=== PATIENT | male | born 1960 | race Caucasian/White ===

== ENCOUNTER 2022-11-21 09:40 | Outpatient (OUT) | payer BC, SELFPAY ==
[2022-11-22 04:07] LABS: Testosterone 614 ng/dL (264-916)
== END 2022-11-21 09:41 | disposition home or self-care (01) ==
PROVIDERS: PCP Internal Medicine; Visit Provider Internal Medicine
DX: R53.83 Other fatigue (principal)
CPT/HCPCS: 36415; 84403; 84443

== ENCOUNTER 2023-08-07 06:54 | Outpatient (OUT) | payer BC, SELFPAY ==
[2023-08-07 07:11] LABS: Basophils Absolute Auto 0.1 10^3/uL (0.0-0.1); Basophils Percent Auto 1.3 % (0.2-2.0); Eosinophils Absolute Auto 0.4 10^3/uL (0.0-0.7); Eosinophils Percent Auto 8.1 % (0.9-7.0); Hematocrit 42.8 % (42.0-54.0); Hemoglobin 14.4 g/dL (14.0-18.0); Immature Granulocytes Abs Auto 0.01 10^3/uL (0.00-0.03); Immature Granulocytes Pct Auto 0.2 % (0.0-0.5); Lymphocytes Absolute Auto 1.6 10^3/uL (1.2-3.8); Lymphocytes Percent Auto 33.2 % (20.5-60.0); Mean Corpuscular HGB Conc 33.6 g/dL (29.9-35.2); Mean Corpuscular Hemoglobin 32.6 pg (25.9-34.0); Mean Corpuscular Volume 96.8 fL (80.0-94.0); Mean Platelet Volume 10.4 fL (9.5-13.5); Monocytes Absolute Auto 0.5 10^3/uL (0.3-0.8); Monocytes Percent Auto 10.7 % (1.7-12.0); Neutrophils Absolute Auto 2.2 10^3/uL (1.4-6.5); Neutrophils Percent Auto 46.5 % (43.0-75.0); Platelet Count 194 10^3/uL (150-450); Red Blood Count 4.42 10^6/uL (4.70-6.10); Red Cell Distribution Width 11.2 % (11.0-15.0); White Blood Count 4.7 10^3/uL (4.0-11.0)
[2023-08-07 07:48] LABS: Alanine Aminotransferase 31 U/L (16-63); Albumin Globulin Ratio 1.1; Albumin Level 3.5 g/dL (3.4-5.0); Alkaline Phosphatase 61 U/L (46-116); Anion Gap 13.6; Aspartate Amino Transferase 24 U/L (15-37); BUN Creatinine Ratio 13.5; Bilirubin Total 0.5 mg/dL (0.2-1.0); Calcium 8.7 mg/dL (8.5-10.1); Carbon Dioxide 26.8 mmol/L (21.0-32.0); Chloride 103 mmol/L (98-107); Chol HDL Ratio 3.1; Cholesterol 179 mg/dL (<=200); Estimated GFR (African America >60 (>=60); Estimated GFR (Non-African Ame >60 (>=60); Globulin 3.3 g/dL; Glucose 105 mg/dL (74-106); HDL Cholesterol 58 mg/dL (40-60); LDL Cholesterol Calculated 112.4 mg/dL; Potassium 4.4 mmol/L (3.5-5.1); Sodium 139 mmol/L (136-145); Total Protein 6.8 g/dL (6.4-8.2); Triglycerides 43 mg/dL (<=150); VLDL CHOLESTEROL 8.6 mg/dL
[2023-08-07 07:58] LABS: Prostate Specific Antigen Scrn 0.58 ng/mL (<=4.00)
== END 2023-08-07 06:55 | disposition home or self-care (01) ==
LOC: LAB 06:54
PROVIDERS: PCP Internal Medicine; Visit Provider Internal Medicine
DX: Q23.1 Congenital insufficiency of aortic valve (principal); I10 Essential (primary) hypertension; N40.1 Benign prostatic hyperplasia with lower urinary tract symptoms; Z12.5 Encounter for screening for malignant neoplasm of prostate
CPT/HCPCS: 80053; 80061; 85025; G0103

== ENCOUNTER 2024-01-15 12:56 | Outpatient (OUT) | payer BC, SELFPAY ==
--- NOTE | 2024-01-15 | XR_ITS ---
[address] [address] Patient Name: REJI PINON MRN: [id number] date: 1960 Sex: M Assigned Patient Location: Current Patient Location: Accession/Order Number: [id number] Exam Date: 01/15/2024 12:57 Report Date: 01/16/2024 08:16 At the request of: SOLO HERNANDEZ Procedure: XR foot LT min 3V PROCEDURE: XR foot LT min 3V COMPARISON: None. HISTORY: LEFT FOOT PAIN FINDINGS: BONES:No acute fracture or dislocation. Moderate plantar enthesopathic spurring of the calcaneus. Mild degenerative changes of the midfoot with marginal osteophyte formation SOFT TISSUES:Negative. No visible soft tissue swelling. EFFUSION:None visible. OTHER: Negative. XR/XR foot LT min 3V IMPRESSION: Moderate plantar enthesopathic spurring Electronically authenticated by: MARGARITA VIERA Date: 01/16/2024 08:16
--- OUTSIDE RECORDS SUMMARY | 2024-01-15 13:07 | XMS_ITS | CCD ---
Author Organization [facility] CliniSyde Care Team Providers Care Instrument Engineer Name Role Phone GO CHAVES Attending Unavailable CHAVES, GO Admitting Unavailable PROVIDER, UNKNOWN Admitting Unavailable PROVIDER, UNKNOWN Attending Unavailable PROVIDER, UNKNOWN Admitting Unavailable PROVIDER, UNKNOWN Attending Unavailable PROVIDER, UNKNOWN Admitting Unavailable PROVIDER, UNKNOWN Attending Unavailable STEVIE MADSEN Primary Care Physician [phone] Cale, Stevie Unavailable CALE, DR HARDY Admitting Unavailable CALE, DR HARDY Attending Unavailable CALE, DR HARDY Primary Care Unavailable CALE, DR HARDY Consulting Unavailable ZIEBER, DR OCTAVIO Hill Consulting Unavailable LOYD ., DR GERMAIN Admitting Unavailable LOYD ., DR GERMAIN Attending Unavailable BALL, DR HARDY Primary Care Unavailable LOYD ., DR GERMAIN Consulting Unavailable LOYD ., DR GERMAIN Admitting Unavailable LOYD ., DR GERMAIN Attending Unavailable BALL, DR HARDY Primary Care Unavailable LOYD ., DR GERMAIN Consulting Unavailable AGUBOSIM, RON Consulting Unavailable ROSYKOSHIVA UGALDE Consulting Unavailable NILL ., DR BOUDREAUX Admitting Unavailable NILL ., DR BOUDREAUX Attending Unavailable CALE, DR HARDY Primary Care Unavailable NILL ., DR BOUDREAUX Consulting Unavailable SHIVA RAMIREZ Consulting Unavailable MCCORNACKOCTAVIO Consulting Unavailable CALE, DR HARDY Admitting Unavailable CALE, DR HARDY Attending Unavailable BALL, DR HARDY Primary Care Unavailable CALE, DR HARDY Consulting Unavailable GURDEEPJenna HESS Attending Unavailable Allergies Allergy Classification Reported Allergen(s) Allergy Type Date of Onset Reaction(s) Facility (1 source) No Known Medication Allergies; Translations: [No Known Medication Allergies] Propensity to adverse reactions (disorder) [facility] Repository Medications Current Medications Medication Drug Class(es) Dates Sig (Normalized) Sig (Original) amLODIPine 5 mg oral tablet (4 sources) Dihydropyridine Calcium Channel Moe Start: 08-12-2023 take 5 mg by mouth once daily Amlodipine Active 5 MG PO Daily August 12, 2023 12:00am Start: 01-23-2023 take 1 tablet by ben th every twenty-four hours amLODIPine Besylate 5 MG 1 tablet Orally Once a day for 30 days Jan, Active carvedilol 25 mg oral tablet (6 sources) alpha-Adrenergic Moe, beta-Adrenergic Moe Start: 08-12-2023 take 25 mg by mouth twice daily Carvedilol Active 25 MG PO Twice daily August 12, 2023 12:00am Start: 12-10-2022 take 1 tablet by ben th every twelve hours Carvedilol 12.5 MG 1 tablet with food Orally Twice a day for 30 days Nov, Active Start: 12-10-2022 take 1 tablet by ben th every twelve hours Carvedilol 6.25 MG 1 tablet with food Orally Twice a day for 30 days Nov, Active Carvedilol 25 MG TAKE 1 TABLET BY MOUTH TWICE A DAY WITH FOOD FOR 30 DAYS Orally Twice a day Active escitalopram 10 mg oral tablet (2 sources) Serotonin Reuptake Inhibitor Start: 08-12-2023 take 10 mg by mouth once daily Escitalopram Oxalate Active 10 MG PO Daily August 12, 2023 12:00am Start: 03-29-2023 take 1 tablet by ben th once daily at bedtime Escitalopram Oxalate 10 MG 1 tablet Orally Once a day before bedtime for 30 days Mar, Active Ibuprofen (2 sources) Nonsteroidal Anti-inflammatory Drug Start: 09-04-2021 ibuprofen PRN as needed for pain, Refills(s) 0 Start Date: 09/04/21 Status: Ordered tiZANidine 4 mg oral tablet (13 sources) Central alpha-2 Adrenergic Agonist Start: 08-12-2023 take 4 mg by mouth three times daily Tizanidine Active 4 MG PO Three times daily August 12, 2023 12:00am Start: 07-31-2021 take 1 tablet by ben th at bedtime tiZANidine 4 mg Tab 4 mg = 1 tab(s), Oral, Bedtime, Refills(s) 0 Start Date: 07/31/21 Status: Ordered Problems Active Problems Problem Classification Problem Date Documented Da te Episodic/Chronic Acute cerebrovascular disease (5 sources) Subarachnoid hemorrhage; Translations: [Nontraumatic subarachnoid hemorrhage, unspecified] Onset: 02-13-2021 Chronic Cardiac and circulatory congenital anomalies (12 sources) Bicuspid aortic valve; Translations: [Congenital insufficiency of aortic valve] Chronic Essential hypertension (12 sources) Essential (primary) hypertension; Translations: [Essential hypertension] Onset: 09-20-2021 Chronic Hyperplasia of prostate (12 sources) Nocturia due to benign prostatic hypertrophy; Translations: [Benign prostatic hyperplasia with lower urinary tract symptoms] Chronic Intracranial injury (5 sources) History of traumatic brain injury; Translations: [Personal history of traumatic brain injury] Episodic Malaise and fatigue (1 source) Other fatigue Episodic Mood disorders (4 sources) Recurrent major depressive episodes, mild ; Translations: [Major depressive disorder, recurrent, mild] Chronic Other circulatory disease (8 sources) Elevated blood-pressure reading without diagnosis of hypertension; Translations: [Elevated blood-pressure reading, without diagnosis of hypertension] 07-31-2021 Episodic Other circulatory disease (3 sources) History of subarachnoid hemorrhage 07-31-2021 Episodic Other circulatory disease (1 source) Other specified symptoms and signs involving the circulatory and respiratory systems Episodic Other circulatory disease (1 source) Elevated blood-pressure reading, without diagnosis of hypertension Episodic Other female genital disorders (3 sources) Disorder of reproductive system 07-31-2021 Episodic Other injuries and conditions due to external causes (3 sources) History of closed head injury 07-31-2021 Episodic Other lower respiratory disease (1 source) Other forms of dyspnea Episodic Other lower respiratory disease (1 source) Shortness of breath Episodic Other male genital disorders (2 sources) Hydrocele of testis; Translations: [Hydrocele, unspecified] Onset: 09-04-2021 Episodic Other male genital disorders (2 sources) Cyst of testis 09-04-2021 Episodic Other male genital disorders (14 sources) Spermatocele; Translations: [Spermatocele of epididymis, unspecified] Onset: 10-20-2021 Episodic Other male genital disorders (16 sources) Hydrocele; Translations: [Hydrocele, unspecified] Episodic Other male genital disorders (11 sources) Benign cyst of testis; Translations: [Testicular cyst] Onset: 09-20-2021 Episodic Other male genital disorders (6 sources) Spermatocele of epididymis, unspecified; Translations: [SPERMATOCELE EPIDIDYMIS UNSPECIFIED] Onset: 09-14-2021 Episodic Other male genital disorders (8 sources) Hydrocele, unspecified; Translations: [Hydrocele] Onset: 09-20-2021 Episodic Other male genital disorders (4 sources) Benign cyst of testes; Translations: [Benign cyst of testis] Episodic Other non-epithelial cancer of skin (3 sources) Malignant neoplasm of skin 07-22-2013 Episodic Other non-traumatic joint disorders (12 sources) Shoulder joint pain; Translations: [Pain in left shoulder] Episodic Other non-traumatic joint disorders (2 sources) Pain in left shoulder; Translations: [Pain in left shoulder] Episodic Other nutritional; endocrine; and metabolic disorders (3 sources) Body mass index 25-29 - overweight 08-18-2021 Episodic Other nutritional; endocrine; and metabolic disorders (5 sources) Overweight; Translations: [Overweight] Episodic Other nutritional; endocrine; and metabolic disorders (2 sources) Overweight; Translations: [Overweight] Episodic Other screening for suspected conditions (not mental disorders or infectious disease) (7 sources) Encounter for screening for malignant neoplasm of prostate; Translations: [Encounter for screening for malignant neoplasm of colon] Onset: 09-20-2021 Episodic Residual codes; unclassified (2 sources) Chews tobacco 08-24-2021 Episodic Residual codes; unclassified (2 sources) Family history of cancer of colon 08-24-2021 Episodic Residual codes; unclassified (1 source) Family history of stroke Episodic Substance-related disorders (18 sources) Nicotine dependence; Translations: [Tobacco user] Onset: 09-26-2021 07-31-2021 Chronic Unclassified (3 sources) Chronic pain of left upper limb 07-31-2021 Unclassified (2 sources) Patient encounter status 08-24-2021 Past or Other Problems Problem Classification Problem Date Documented Da te Episodic/Chronic Genitourinary symptoms and ill-defined conditions (6 sources) Nocturia; Translations: [Nocturia] Onset: 09-04-2021 Episodic Other male genital disorders (5 sources) Disorder of male genital organ; Translations: [Other specified disorders of the male genital organs] Resolved: 06-16-2021 Episodic Residual codes; unclassified (2 sources) Family history of malignant neoplasm of digestive organs; Translations: [FAM HX MALIG NEOPLASM DIGESTIV ORGN] Onset: 09-26-2021 Episodic Unclassified (2 sources) Post COVID-19 condition, unspecified U09.9 Unclassified (1 source) Chronic cough R05.3 Unclassified (3 sources) Aneurysm of ascending aorta without rupture I71.21 Results Test Name Value Interpretation Reference Range Facility Basophils Auto (Bld) [#/Vol] on 08-07-2023 Basophils (Bld) [#/Vol] 0.1 10 3/uL 0.0-0.1 [facility] Basophils/100 WBC Auto (Bld) on 08-07-2023 Basophils/100 WBC (Bld) 1.3 % 0.2-2.0 [facility] Cholesterol in LDL Calc [Mas s/Vol]on 08-07-2023 Cholesterol in LDL [Mass/Vol] 112.4 mg/dL [facility] Comment on above: <100 mg/dl [id number] 0-129 mg/dl NEAR OR ABOVE [id number] mg/dl BORDERLINE [id number] mg/dl HIGH>190 mg/dl VERY HIGH Cholesterol in VLDL Calc [Ma ss/Vol]on 08-07-2023 Cholesterol in VLDL [Mass/Vol] 8.6 mg/dL [facility] Eosinophils/100 WBC Auto (Bl d)on 08-07-2023 Eosinophils/100 WBC (Bld) 8.1 % 0.9-7.0 [facility] Erythrocyte distribution wid th Auto (RBC) [Ratio]on 08-07-2023 Erythrocyte distribution width (RBC) [Ratio] 11.2 % 11.0-15.0 [facility] Estimated glomerular filtrat ion rate (GFR) non- Americanon 08-07-2023 GFR/1.73 sq M.predicted among non-blacks MDRD (S/P/Bld) [Vol rate/Area] mL/min/{1.73_m2} >=60 [facility] Globulin Calc (S) [Mass/Vol] on 08-07-2023 Globulin (S) [Mass/Vol] 3.3 g/dL [facility] Hematocrit Auto (Bld) [Volum e fraction]on 08-07-2023 Hematocrit (Bld) [Volume fraction] 42.8 % 42.0-54.0 [facility] Hemoglobin [Mass/volume] in Bloodon 08-07-2023 Hemoglobin (Bld) [Mass/Vol] 14.4 g/dL 14.0-18.0 [facility] Laboratory - Chemistry and C hemistry - challengeon 08-07-2023 Albumin [Mass/Vol] 3.5 g/dL 3.4-5.0 [facility] ALP [Catalytic activity/Vol] 61 U/L 46-116 [facility] ALT [Catalytic activity/Vol] 31 U/L 16-63 [facility] AST [Catalytic activity/Vol] 24 U/L 15-37 [facility] Bilirubin [Mass/Vol] 0.5 mg/dL 0.2-1.0 [facility] Calcium [Mass/Vol] 8.7 mg/dL 8.5-10.1 [facility] Chloride [Moles/Vol] 103 mmol/L 98-107 [facility] Cholesterol [Mass/Vol] 179 mg/dL <=200 [facility] Cholesterol in HDL [Mass/Vol] 58 mg/dL 40-60 [facility] Comment on above: > or =60 mg/dl - LOW CARDIOVASCULAR RISK<40 mg/dl - HIGH CARDIOVASCULAR RISK CO2 [Moles/Vol] 26.8 mmol/L 21.0-32.0 [facility] Creatinine [Mass/Vol] 0.96 mg/dL 0.70-1.30 [facility] GFR/1.73 sq M.predicted MDRD (S/P/Bld) [Vol rate/Area] mL/min/{1.73_m2} >=60 [facility] Glucose [Mass/Vol] 105 mg/dL 74-106 [facility] Potassium [Moles/Vol] 4.4 mmol/L 3.5-5.1 [facility] Protein [Mass/Vol] 6.8 g/dL 6.4-8.2 [facility] Sodium [Moles/Vol] 139 mmol/L 136-145 [facility] Triglyceride [Mass/Vol] 43 mg/dL <=150 [facility] Urea nitrogen [Mass/Vol] 13.0 mg/dL 7.0-18.0 [facility] Urea nitrogen/Creatinine [Mass ratio] 13.5 mg/mg [facility] Laboratory - Hematology and Cell countson 08-07-2023 Immature granulocytes/100 WBC (Bld) 0.2 % 0.0-0.5 [facility] Leukocytes [#/volume] correc karyna for nucleated erythrocytes in Blood by Automated counon 08-07-2023 WBC corrected for nucl RBC Auto (Bld) [#/Vol] 4.7 10 3/uL 4.0-11.0 [facility] Lymphocytes Auto (Bld) [#/Vo l]on 08-07-2023 Lymphocytes (Bld) [#/Vol] 1.6 10 3/uL 1.2-3.8 [facility] Lymphocytes/100 WBC Auto (Bl d)on 08-07-2023 Lymphocytes/100 WBC (Bld) 33.2 % 20.5-60.0 [facility] MCH Auto (RBC) [Entitic mass ]on 08-07-2023 MCH (RBC) [Entitic mass] 32.6 pg 25.9-34.0 [facility] MCHC Auto (RBC) [Mass/Vol]on 08-07-2023 MCHC (RBC) [Mass/Vol] 33.6 g/dL 29.9-35.2 [facility] MCV Auto (RBC) [Entitic vol] on 08-07-2023 MCV (RBC) [Entitic vol] 96.8 fL 80.0-94.0 [facility] Monocytes Auto (Bld) [#/Vol] on 08-07-2023 Monocytes (Bld) [#/Vol] 0.5 10 3/uL 0.3-0.8 [facility] Monocytes/100 WBC Auto (Bld) on 08-07-2023 Monocytes/100 WBC (Bld) 10.7 % 1.7-12.0 [facility] Neutrophils Auto (Bld) [#/Vo l]on 08-07-2023 Neutrophils (Bld) [#/Vol] 2.2 10 3/uL 1.4-6.5 [facility] Neutrophils/100 WBC Auto (Bl d)on 08-07-2023 Neutrophils/100 WBC (Bld) 46.5 % 43.0-75.0 [facility] No Panel Informationon 08-06 Eosinophils # (Auto) 0.4 10 3/uL 0.0-0.7 [facility] Immature Granulocyte # (Auto) 0.01 10 3/uL 0.00-0.03 [facility] Prostate Specific Antigen Screen 0.58 ng/mL <=4.00 [facility] Platelet mean volume Auto (B ld) [Entitic vol]on 08-07-2023 Platelet mean volume (Bld) [Entitic vol] 10.4 fL 9.5-13.5 [facility] Platelets Auto (Bld) [#/Vol] on 08-07-2023 Platelets (Bld) [#/Vol] 194 10 3/uL 150-450 [facility] RBC Auto (Bld) [#/Vol]on RBC (Bld) [#/Vol] 4.42 10 6/uL 4.70-6.10 [facility] Serum or plasma albumin/glob ulin mass ratioon 08-07-2023 Albumin/Globulin [Mass ratio] 1.1 {ratio} [facility] Serum or plasma anion gap de terminationon 08-07-2023 Anion gap [Moles/Vol] 13.6 mmol/L [facility] Serum or plasma total choles terol/high density lipoprotein (HDL) cholesterol mass shirley 08-07-2023 Cholesterol.total/Ch olesterol in HDL [Mass ratio] 3.1 {ratio} [facility] Comment on above: 3.3 - 4.4 LOW RISK4. 4 - 7.1 AVERAGE RISK7.1 - 11.0 MODERATE RISK>11.0 HIGH RISK Registrationon 04-01-2023 Registration [id number] #1.00TIFF Normal [facility] In office Testingon 03-28-20 23 In office Testing [id number]# 1.00TIFF Normal [facility] Registrationon 03-28-2023 Registration [id number] #1.00TIFF Normal [facility] US CAROTID ART BILon 023 US CAROTID ART DB EXAMINATION: US CAROTID ART DB HISTORY: Cardiovascular symptoms COMPARISON: No relevant comparison available. TECHNIQUE: Duplex Doppler ultrasound analysis of carotid and vertebral arteries. . Bilateral carotid arterial duplex examination was performed using B-mode, color flow and spectral analysis. Carotid stenosis is reported according to validated velocity parameters, similar to NASCET criteria. FINDINGS: RIGHT CAROTID ARTERY Minimal atherosclerotic plaque Subclavian: PSV: 123.6 cm/s cm/s EDV: 0.0 cm/s cm/s CCA: Prox: PSV: 82.3 cm/s cm/s EDV: 26.7 cm/s cm/s Mid: PSV: 82.3 cm/s cm/s EDV: 18.9 cm/s cm/s Distal: PSV: 72.1 cm/s cm/s EDV: 20.4 cm/s cm/s BULB: PSV: 59.8 cm/s cm/s EDV: 16.2 cm/s cm/s ICA: Prox: PSV: 51.4 cm/s cm/s EDV: 18.2 cm/s cm/s Mid: PSV: 64.7 cm/s cm/s EDV: 26.3 cm/s cm/s Distal: PSV: 72.1 cm/s cm/s EDV: 31.4 cm/s cm/s ECA: PSV: 84.9 cm/s cm/s EDV: 15.0 cm/s cm/s VERTEBRAL: PSV: 44.6 cm/s cm/s EDV: 15.4 cm/s cm/s ICA/CCA ratio: PSV: 0.9 EDV: 1.7 LEFT CAROTID ARTERY Minimal atherosclerotic plaque Subclavian: PSV: 85.9 cm/s cm/s EDV: 0.0 cm/s CCA: Prox: PSV: 96.5 cm/s cm/s EDV: 28.0 cm/s Mid: PSV: 83.6 cm/s cm/s EDV: 21.5 cm/s Distal: PSV: 74.5 cm/s cm/s EDV: 24.1 cm/s BULB: PSV: 67.1 cm/s cm/s EDV: 12.8 cm/s ICA: Prox: PSV: 55.2 cm/s cm/s EDV: 21.1 cm/s Mid: PSV: 65.5 cm/s cm/s EDV: 31.4 cm/s Distal: PSV: 63.3 cm/s cm/s EDV: 29.2 cm/s ECA: PSV: 71.3 cm/s cm/s EDV: 13.1 cm/s VERTEBRAL: PSV: 50.2 cm/s cm/s EDV: 23.2 cm/s ICA/CCA ratio: PSV: 0.8 EDV: 0.6 IMPRESSION: 0-49% flow stenosis bilateral internal carotid arteries Spectral Doppler US Thresholds (Reference: Jann EG, et al. Radiology 2000; 214:247-252) Stenosis (%) PSV (cm/sec) VICA/VCCA 0-49 <150 <2.5 50-69 150-225 2.5-4.0 >70 >225 >4.0 Electronically authenticated by: MARGARITA VIERA Date: 2022-08-25 08:20 Normal [facility] ECHOCARDIO M/2D COMPLETEon 0 08-24-2022 ECHOCARDIO M/2D COMPLETE Patient: REJI PINON Exam Date: 08/24/2022 : 1960 Gender:M Ordering : DR STEVIE MADSEN D.O. Admission #: [id number] Family : Order #: [id number] CLICK HERE TO VIEW EXAM ECHOCARDIOGRAM REPORT PROCEDURE: CARDIO PULMONARY ECHOCARDIO M/2D COMP INDICATIONS: Dyspnea on exertion, post Covid condition COMPARISON: None. DESCRIPTION: COMPLETE ECHOCARDIOGRAM Real-time transthoracic echocardiography with 2D, M-mode, spectral and color flow Doppler performed. QUALITY: Technical quality was good. LEFT VENTRICLE: Normal chamber size. Mild concentric left ventricular hypertrophy. Normal systolic function. LV EF: Normal left ventricular ejection fraction, (>55%). DIASTOLIC: Normal diastolic function. ATRIAL SEPTUM: Visually appears intact. LEFT ATRIUM: Normal chamber size. RIGHT ATRIUM: Normal chamber size. RIGHT VENTRICLE: Normal chamber size. Normal right ventricular systolic function. TRICUSPID VALVE: Normal mobility and thickness. No stenosis with trivial regurgitation. No evidence of pulmonary hypertension. RVSP 31 mmHg MITRAL VALVE: Normal mobility and thickness. No evidence of mitral valve stenosis. There is no mitral annular calcification. Trivial mitral regurgitation. AORTIC VALVE: No visible sclerosis. The aortic valve is bicuspid [Janiya type I, fusion of right and left cusps]. Trivial aortic regurgitation. No aortic stenosis. AORTIC ROOT: Moderately dilated ascending aorta (4.9 cm). The aortic root is mildly dilated, measuring 3.8 cm. Aortic arch is normal in size. PULMONIC VALVE: Normal thickness and mobility. No stenosis. Trivial regurgitation. PERICARDIUM: No evidence of pericardial effusion. IVC: Collapses with inspirations. PLEURA: CONCLUSION: 1. Normal ventricular function. LVEF is 55 to 60%. 2. Bicuspid aortic valve with no regurgitation and no stenosis. 3. Moderately dilated ascending aorta, measuring 4.9 cm. 4. Normal right-sided pressures. Adult Echocardiography Procedure Report Left Ventricle LVEDD (3.7 - 5.6 cm): 3.94 cm LVESD (2.2 - 4.0 cm): 3.16 cm LVIVS thickness (0.6 - 1.2 cm): 1.27 cm LVPW thickness (0.5 - 1.0 cm): 1.18 cm e': 0.11 m/s E - e': 5.58 LVOT Max Gradient: 4.09 mm[Hg], 3.97 mm[Hg] Peak Velocity (LVOT): 1.01 m/s, 1.00 m/s Mean Velocity (LVOT): 0.73 m/s, 0.69 m/s LVOT Diameter 2.03 cm Left Ventricular Ejection Fraction: 55-60 % Left Atrium LA Volume Index (2D A2C): 45.64 ml, 45.64 ml Left Atrium Systolic Dimension: 3.13 cm Mitral Valve MV E to A Ratio: 0.56 Mitral Valve A-Wave Peak Velocity: 1.09 m/s Mitral Valve E-Wave Peak Velocity: 0.61 m/s Right Ventricle RV Internal Diastolic Dimension: 4.50 cm Aorta AO Root Diam: 2.92 cm Ascending Ao Diam: 3.79 cm Aortic Valve AoV Area (Peak Ty): 1.78 cm2, 1.86 cm2, 1.70 cm2 AoV Area (VTI): 1.68 cm2, 1.79 cm2, 1.58 cm2 Peak Velocity(Antegrade Flow): 1.75 m/s, 1.89 m/s Peak Gradient(Antegrade Flow): 12.28 mm[Hg], 14.29 mm[Hg] Mean Velocity(Antegrade Flow): 1.15 m/s, 1.25 m/s Mean Gradient(Antegrade Flow): 6.20 mm[Hg], 7.25 mm[Hg] Velocity Time Integral: 28.96 cm, 31.94 cm Tricuspid Valve Peak Velocity (Regurgitant Flow): 2.66 m/s Peak Velocity: 0.59 m/s Pulmonic Valve Peak Velocity: 1.25 m/s, 1.03 m/s Peak Gradient: 6.28 mm[Hg], 4.21 mm[Hg] Right Atrium Right Atrium Systolic Pressure: 55.50 ml, 55.50 ml Dictated by: Sal Cruz M.D. on 08/24/2022 at 19:19 Approved by: Sal Cruz M.D. on 08/24/2022 at 19:28 Normal [facility] CBC AUTO DIFFon 08-03-2022 BASO # 0.1 103/ul Normal 0.0-0.1 [facility] Comment on above: Performed By: #### C BC #### [facility] [address] [place] [address] Dr. Christiano William Basophils/100 WBC (Bld) 1.2 % Normal 0.2-2.0 [facility] Comment on above: Performed By: #### C BC #### [facility] [address] [place] [address] Dr. Christiano William EO # 0.3 103/ul Normal 0.0-0.7 [facility] Comment on above: Performed By: #### C BC #### [facility] [address] [place] [address] Dr. Christiano William Eosinophils/100 WBC (Bld) 6.6 % Normal 0.9-7.0 [facility] Comment on above: Performed By: #### C BC #### [facility] [address] [place] [address] Dr. Christiano William Erythrocyte distribution width (RBC) [Ratio] 11.3 % Normal 11.0-15.0 [facility] Comment on above: Performed By: #### C BC #### [facility] [address] [place] [address] Dr. Christiano William Hematocrit (Bld) [Volume fraction] 44.2 % Normal 42.0-54.0 [facility] Comment on above: Performed By: #### C BC #### [facility] [address] [place] [address] Dr. Christiano William Hemoglobin (Bld) [Mass/Vol] 15.4 g/dL Normal 14.0-18.0 [facility] Comment on above: Performed By: #### C BC #### [facility] [address] [place] [address] Dr. Christiano William IG # 0.01 10e3/ul Normal 0.00-0.03 [facility] Comment on above: Performed By: #### C BC #### [facility] [address] [place] [address] Dr. Christiano William IG % 0.2 % Normal 0.0-0.5 [facility] Comment on above: Performed By: #### C BC #### [facility] [address] [place] [address] Dr. Christiano William LYMPH # 1.5 103/ul Normal 1.2-3.8 [facility] Comment on above: Performed By: #### C BC #### [facility] [address] [place] [address] Dr. Christiano William Lymphocytes/100 WBC (Bld) 35.4 % Normal 20.5-60.0 [facility] Comment on above: Performed By: #### C BC #### [facility] [address] [place] [address] Dr. Christiano William MANUAL DIFF REQ NO Normal [facility] Comment on above: Performed By: #### C BC #### [facility] [address] [place] [address] Dr. Christiano William MCH (RBC) [Entitic mass] 33.0 pg Normal 25.9-34.0 [facility] Comment on above: Performed By: #### C BC #### [facility] [address] [place] [address] Dr. Christiano William MCHC (RBC) [Mass/Vol] 34.8 g/dL Normal 29.9-35.2 [facility] Comment on above: Performed By: #### C BC #### [facility] [address] [address] [address] Christiano William MCV (RBC) [Entitic vol] 94.6 fL Critically high 80.0-94.0 [facility] Comment on above: Performed By: #### C BC #### [facility] [address] [address] [address] Christiano William MONO # 0.5 103/ul Normal 0.3-0.8 [facility] Comment on above: Performed By: #### C BC #### [facility] [address] [address] [address] Christiano William Monocytes/100 WBC (Bld) 11.2 % Normal 1.7-12.0 [facility] Comment on above: Performed By: #### C BC #### [facility] [address] [address] [address] Christiano William NEUT # 1.9 103/ul Normal 1.4-6.5 [facility] Comment on above: Performed By: #### C BC #### [facility] [address] [place] [address] Dr. Christiano William Neutrophils/100 WBC (Bld) 45.4 % Normal 43.0-75.0 [facility] Comment on above: Performed By: #### C BC #### [facility] [address] [address] [address] Christiano William Platelet mean volume (Bld) [Entitic vol] 10.0 fL Normal 9.5-13.5 [facility] Comment on above: Performed By: #### C BC #### [facility] [address] [address] [address] Christiano William PLT 222 103/ul Normal 150-450 [facility] Comment on above: Performed By: #### C BC #### [facility] [address] [address] [address] Christiano William RBC 4.67 106/ul Critically low 4.70-6.[address] [facility] Comment on above: Performed By: #### C BC #### [facility] [address] [address] [address] Christiano William WBC 4.1 103/ul Normal 4.0-11.0 [facility] Comment on above: Performed By: #### C BC #### [facility] [address] [place] [address] [address] Christiano William LIPID PROFILEon 08-03-2022 CHOL-HDL RATIO NORM SEE BELOW Normal [facility] Comment on above: Result Comment: 3.3 - 4.4 LOW RISK 4.4 - 7.1 AVERAGE RISK 7.1 - 11.0 MODERATE RISK >11.0 HIGH RISK Performed By: #### L IPID, CMP #### [facility] [address] [address] [address] Christiano William Cholesterol [Mass/Vol] 177 mg/dL Normal <=200 [facility] Comment on above: Performed By: #### L IPID, CMP #### [facility] [address] [place] [address] [address] Christiano William Cholesterol in HDL [Mass/Vol] 63 mg/dL Critically high 40-60 [facility] Comment on above: Performed By: #### L IPID, CMP #### [facility] [address] [address] [address] Christiano William Cholesterol in LDL [Mass/Vol] 106.8 mg/dL Normal [facility] Comment on above: Performed By: #### L IPID, CMP #### [facility] [address] [address] [address] Christiano William Cholesterol.total/Ch olesterol in HDL [Mass ratio] 2.8 {ratio} Normal [facility] Comment on above: Performed By: #### L IPID, CMP #### [facility] [address] [place] [address] Dr. Christiano William HDL NORMAL > or = 60 mg/dl - LO W CARDIOVASCULAR RISK <40 mg/dl - HIGH CARDIOVASCULAR RISK Normal [facility] Comment on above: Performed By: #### L IPID, CMP #### [facility] [address] [place] [address] Dr. Christiano William LDL CALC NORMAL SEE BELOW Normal [facility] Comment on above: Result Comment: <100 mg/dl OPTIMAL 100 - 129 mg/dl NEAR OR ABOVE OPTIMAL 130 - 159 mg/dl BORDERLINE HIGH 160 - 189 mg/dl HIGH >190 mg/dl VERY HIGH Performed By: #### L IPID, CMP #### [facility] [address] [place] [address] [address] Christiano William Triglyceride [Mass/Vol] 36 mg/dL Normal <=150 [facility] Comment on above: Performed By: #### L IPID, CMP #### [facility] [address] [place] [address] [address] Christiano William VLDL CALC 7.2 mg/dL Normal [facility] Comment on above: Performed By: #### L IPID, CMP #### [facility] [address] [place] [address] [address] Christiano William PROF 14(COMP METB)on 023 Albumin [Mass/Vol] 3.7 g/dL Normal 3.4-5.[address] [facility] Comment on above: Performed By: #### L IPID, CMP ####[facility] [address] [place] [address]Dr[place] William Albumin/Globulin [Mass ratio] 1.1 {ratio} Normal [facility] Comment on above: Performed By: #### L IPID, CMP ####[facility] [address] [place] [address]Dr[place] William ALP [Catalytic activity/Vol] 53 U/L Normal 46-116 [facility] Comment on above: Performed By: #### L IPID, CMP ####[facility] [address] [place] [id number] William ALT [Catalytic activity/Vol] 28 U/L Normal 16-63 [facility] Comment on above: Performed By: #### L IPID, CMP ####[facility] [address] [place] [id number] William Anion gap [Moles/Vol] 12.8 mmol/L Normal [facility] Comment on above: Performed By: #### L IPID, CMP ####[facility] [address] [place] [address]Dr. Christiano William AST [Catalytic activity/Vol] 22 U/L Normal 15-37 [facility] Comment on above: Performed By: #### L IPID, CMP ####[facility] [address] [place] [address]Dr. Christiano William Bilirubin [Mass/Vol] 0.5 mg/dL Normal 0.2-1.0 [facility] Comment on above: Performed By: #### L IPID, CMP ####[facility] [address] [place], [place] [address]Dr. Christiano William Calcium [Mass/Vol] 8.7 mg/dL Normal 8.5-10.[address] [facility] Comment on above: Performed By: #### L IPID, CMP ####[facility] [address] [place], [place] [address]Dr. Christiano William Chloride [Moles/Vol] 103 mmol/L Normal 98-107 [facility] Comment on above: Performed By: #### L IPID, CMP ####[facility] [address] [place], [place] [address]Dr. Christiano William CO2 [Moles/Vol] 26.7 mmol/L Normal 21.0-32.0 [facility] Comment on above: Performed By: #### L IPID, CMP ####[facility] I[address] [place], [place] [address]Dr. Christiano William Creatinine [Mass/Vol] 1.02 mg/dL Normal 0.70-1.30 [facility] Comment on above: Performed By: #### L IPID, CMP ####[facility] [address] [place], [place] [address]Dr. Christiano William EGFR-AF NIGERIEN >60 Normal >=60 [facility] Comment on above: Performed By: #### L IPID, CMP ####[facility] [address] [place], [place] [address]Dr. Christiano William EGFR-NON AF NIGERIEN >60 Normal >=60 [facility] Comment on above: Performed By: #### L IPID, CMP ####[facility] [address] [place] [address]Dr. Sravanthisheldon Stewart Globulin (S) [Mass/Vol] 3.5 g/dL Normal [facility] Comment on above: Performed By: #### L IPID, CMP ####[facility] [address] [place] [address]Dr. Christiano William Glucose [Mass/Vol] 110 mg/dL Critically high 74-106 [facility] Comment on above: Performed By: #### L IPID, CMP ####[facility] [address] [place], [place] [address]Dr. Christiano William Potassium [Moles/Vol] 4.5 mmol/L Normal 3.5-5.1 [facility] Comment on above: Performed By: #### L IPID, CMP ####[facility] [address] [place], [place] [address]Dr. Crhistiano William Protein [Mass/Vol] 7.2 g/dL Normal 6.4-8.2 The [facility] Comment on above: Performed By: #### L IPID, CMP ####[facility] [address] [place], [place] [address]Dr. Christiano William Sodium [Moles/Vol] 138 mmol/L Normal 136-145 The [facility] Comment on above: Performed By: #### L IPID, CMP ####[facility] [address] [place], [place] [address]Dr. Christiano William Urea nitrogen [Mass/Vol] 9.0 mg/dL Normal 7.0-18.0 [facility] Comment on above: Performed By: #### L IPID, CMP ####[facility] [address] [place], [place] [address]Dr. Christiano William Urea nitrogen/Creatinine [Mass ratio] 8.8 mg/mg Normal [facility] Comment on above: Performed By: #### L IPID, CMP ####[facility] [address] [place], [place] [address]Dr. Christiano William In office Testingon 07-05-19 23 In office Testing [id number] Normal [facility] CBC AUTO DIFFon 09-13-2021 BASO # 0.1 103/ul Normal 0.0-0.1 [facility] Comment on above: Performed By: #### C BC #### [facility] [address] [place] [address] Dr. Christiano William Basophils/100 WBC (Bld) 1.2 % Normal 0.2-2.0 [facility] Comment on above: Performed By: #### C BC #### [facility] [address] [place] [address] Dr. Christiano William EO # 0.1 103/ul Normal 0.0-0.7 [facility] Comment on above: Performed By: #### C BC #### [facility] [address] [place] [address] Dr. Christiano William Eosinophils/100 WBC (Bld) 2.6 % Normal 0.9-7.0 [facility] Comment on above: Performed By: #### C BC #### [facility] [address] [place] [address] Dr. Christiano William Erythrocyte distribution width (RBC) [Ratio] 12.3 % Normal 11.0-15.0 [facility] Comment on above: Performed By: #### C BC #### [facility] [address] [place] [address] Dr. Christiano William Hematocrit (Bld) [Volume fraction] 40.7 % Critically low 42.0-54.0 [facility] Comment on above: Performed By: #### C BC #### [facility] [address] [place] [address] Dr. Christiano William Hemoglobin (Bld) [Mass/Vol] 14.1 g/dL Normal 14.0-18.0 [facility] Comment on above: Performed By: #### C BC #### [facility] [address] [place] [address] Dr. Christiano William IG # 0.01 10e3/ul Normal 0.00-0.03 [facility] Comment on above: Performed By: #### C BC #### [facility] [address] [place] [address] Dr. Christiano William IG % 0.2 % Normal 0.0-0.5 [facility] Comment on above: Performed By: #### C BC #### [facility] [address] [place] [address] Dr. Christiano William LYMPH # 1.0 103/ul Critically low 1.2-3.8 [facility] Comment on above: Performed By: #### C BC #### [facility] [address] [place] [address] Dr. Christiano William Lymphocytes/100 WBC (Bld) 24.4 % Normal 20.5-60.0 [facility] Comment on above: Performed By: #### C BC #### [facility] [address] [place] [address] Dr. Christiano William MANUAL DIFF REQ NO Normal [facility] Comment on above: Performed By: #### C BC #### [facility] [address] [place] [address] Dr. Christiano William MCH (RBC) [Entitic mass] 33.7 pg Normal 25.9-34.0 [facility] Comment on above: Performed By: #### C BC #### [facility] [address] [place] [address] Dr. Christiano William MCHC (RBC) [Mass/Vol] 34.6 g/dL Normal 29.9-35.2 [facility] Comment on above: Performed By: #### C BC #### [facility] [address] [place] [address] Dr. Christiano William MCV (RBC) [Entitic vol] 97.4 fL Critically high 80.0-94.0 [facility] Comment on above: Performed By: #### C BC #### [facility] [address] [place] [address] Dr. Christiano William MONO # 0.5 103/ul Normal 0.3-0.8 [facility] Comment on above: Performed By: #### C BC #### [facility] [address] [place] [address] Dr. Christiano William Monocytes/100 WBC (Bld) 10.5 % Normal 1.7-12.0 [facility] Comment on above: Performed By: #### C BC #### [facility] [address] [place] [address] Dr. Christiano William NEUT # 2.6 103/ul Normal 1.4-6.5 [facility] Comment on above: Performed By: #### C BC #### [facility] [address] [place] [address] Dr. Christiano William Neutrophils/100 WBC (Bld) 61.1 % Normal 43.0-75.0 [facility] Comment on above: Performed By: #### C BC #### [facility] [address] [place] [address] Dr. Christiano William Platelet mean volume (Bld) [Entitic vol] 9.9 fL Normal 9.5-13.5 [facility] Comment on above: Performed By: #### C BC #### [facility] [address] [place] [address] Dr. Christiano William PLT 241 103/ul Normal 150-450 [facility] Comment on above: Performed By: #### C BC #### [facility] [address] [place] [address] Dr. Christiano William RBC 4.18 106/ul Critically low 4.70-6.10 [facility] Comment on above: Performed By: #### C BC #### [facility] [address] [place] [address] Dr. Christiano William WBC 4.3 103/ul Normal 4.0-11.0 [facility] Comment on above: Performed By: #### C BC #### [facility] [address] [place] [address] Dr. Christiano William PROF CHEM 8 (BAS METB)on Anion gap [Moles/Vol] 16.5 mmol/L Normal [facility] Comment on above: Performed By: #### B MP ####[facility] [address] [place] [address]Dr. Christiano William Calcium [Mass/Vol] 9.1 mg/dL Normal 8.5-10.1 The [facility] Comment on above: Performed By: #### B MP ####[facility] [address] [place] [address]Dr. Christiano William Chloride [Moles/Vol] 104 mmol/L Normal 98-107 [facility] Comment on above: Performed By: #### B MP ####[facility] [address] [place] [address]Dr. Christiano William CO2 [Moles/Vol] 22.3 mmol/L Normal 21.0-32.0 [facility] Comment on above: Performed By: #### B MP ####[facility] [address] [place], [place] [address]Dr. Christiano William Creatinine [Mass/Vol] 0.97 mg/dL Normal 0.70-1.30 [facility] Comment on above: Performed By: #### B MP ####[facility] [address] [place], [place] [address]Dr. Christiano William EGFR-AF NIGERIEN >60 Normal >=60 [facility] Comment on above: Performed By: #### B MP ####[facility] [address] [place] [address]Dr. Christiano William EGFR-NON AF NIGERIEN >60 Normal >=60 [facility] Comment on above: Performed By: #### B MP ####[facility] [address] [place], [place] [address]Dr. Christiano William Glucose [Mass/Vol] 100 mg/dL Normal 74-106 The [facility] Comment on above: Performed By: #### B MP ####[facility] [address] [place], [place] [address]Dr. Christiano William Potassium [Moles/Vol] 4.8 mmol/L Normal 3.5-5.1 [facility] Comment on above: Performed By: #### B MP ####[facility] [address] [place] [address]Dr[place]iana William Sodium [Moles/Vol] 138 mmol/L Normal 136-145 The [facility] Comment on above: Performed By: #### B MP ####[facility] [address] [place] [id number]. Christiano iWlliam Urea nitrogen [Mass/Vol] 8.0 mg/dL Normal 7.0-18.0 [facility] Comment on above: Performed By: #### B MP ####[facility] [address] [place] [address]Dr. Christiano William Urea nitrogen/Creatinine [Mass ratio] 8.2 mg/mg Normal [facility] Comment on above: Performed By: #### B MP ####[facility] [address] [place] [address]Dr[place]iana William PROTIMEon 09-13-2021 INR Coag (PPP) [Relative time] 0.97 {INR} Normal [facility] Comment on above: Performed By: #### P T, PTT #### [facility] [address] [place] [address] [address] Christiano William INR GUIDELINES SEE BELOW Normal [facility] Comment on above: Result Comment: DALLIN RED INR: 2.0 - 3.0 CONDITIONS NOT LISTED BELOW 2.5 - 3.5 FOR PROSTHETIC HEART VALVE REPLACEMENT 2.5 - 3.5 RECURRENT THROMBOSIS Performed By: #### P T, PTT #### [facility] [address] [place] [address] [address] Christiano William PT Coag (PPP) [Time] 10.5 s Normal 9.0-11.6 [facility] Comment on above: Performed By: #### P T, PTT #### [facility] [address] [place] [address] [address] Christiano William PTTon 09-13-2021 aPTT Coag (Bld) [Time] 29.0 s Normal 22.3-36.2 [facility] Comment on above: Performed By: #### P T, PTT #### [facility] [address] [place], [place] [address] Dr. Christiano William BASIC METABOLIC PANELon 11-0 Anion gap [Moles/Vol] 12 mmol/L Normal 10-20 [facility] Comment on above: Performed By: #### C H8, ETOH #### [facility] [address] [place] [address], Calcium [Mass/Vol] 8.0 mg/dL Low 8.4-10.4 [facility] Comment on above: Performed By: #### C H8, ETOH #### [facility] [address] [place] [address], Chloride [Moles/Vol] 105 mmol/L Normal 97-111 [facility] Comment on above: Performed By: #### C H8, ETOH #### [facility] [address] [place] [address], CO2 [Moles/Vol] 20 mmol/L Low 21-30 The [facility] Comment on above: Performed By: #### C H8, ETOH #### [facility] [address] [place] [address], Creatinine [Mass/Vol] 0.81 mg/dL Normal 0.80-1.30 [facility] Comment on above: Performed By: #### C H8, ETOH #### [facility] [address] [place] [address], ESTIMATED GFR (CKD-EPI) 97 mL/min/1.73sqm Normal >=60 [facility] Comment on above: Performed By: #### C H8, ETOH #### [facility] [address] [place] [address], Glucose [Mass/Vol] 86 mg/dL Normal 80-116 [facility] Comment on above: Performed By: #### C H8, ETOH #### [facility] [address] [place] [address], Potassium [Moles/Vol] 4.0 mmol/L Normal 3.3-5.3 [facility] Comment on above: Performed By: #### C H8, ETOH #### [facility] [address] [place], [place], Sodium [Moles/Vol] 133 mmol/L Low 135-148 [facility] Comment on above: Performed By: #### C H8, ETOH #### [facility] [address] [place], [place], Urea nitrogen [Mass/Vol] 9 mg/dL Normal 8-22 [facility] Comment on above: Performed By: #### C H8, ETOH #### [facility] [address] [place], [place], CBC WITH DIFFERENTIALon 11-0 -2020 Basophils (Bld) [#/Vol] 0.02 10*3/uL Normal 0.00-0.20 [facility] Comment on above: Performed By: #### C BCDSAT ####[facility] [id number] [place], [place], Basophils/100 WBC (Bld) 0.2 % Normal <=1.9 [facility] Comment on above: Performed By: #### C BCDSAT ####[facility] [id number] [place], [place], Eosinophils (Bld) [#/Vol] 0.05 10*3/uL Normal 0.00-0.70 [facility] Comment on above: Performed By: #### C BCDSAT ####[facility] [id number] [place], Eosinophils/100 WBC (Bld) 0.5 % Normal 0.1-4.0 [facility] Comment on above: Performed By: #### C BCDSAT ####[facility] [id number] [place], [place], Erythrocyte distribution width (RBC) [Ratio] 12.0 % Normal 11.5-14.5 [facility] Comment on above: Performed By: #### C BCDSAT ####S PATHOLOGY [id number] [place], [place], Hematocrit (Bld) [Volume fraction] 36.0 % Low 41.0-53.0 [facility] Comment on above: Performed By: #### C BCDSAT ####[facility] [id number] [place], Hemoglobin (Bld) [Mass/Vol] 12.3 g/dL Low 13.9-16.3 [facility] Comment on above: Performed By: #### C BCDSAT ####[facility] [id number] [place], [place], Lymphocytes (Bld) [#/Vol] 0.56 10*3/uL Low 1.00-4.80 [facility] Comment on above: Performed By: #### C BCDSAT ####[facility] [id number] [place] [address], Lymphocytes/100 WBC (Bld) 5.9 % Low 24.0-44.0 [facility] Comment on above: Performed By: #### C BCDSAT ####[facility] [id number] [place] [address], MCH (RBC) [Entitic mass] 33.4 pg Normal 26.0-34.0 [facility] Comment on above: Performed By: #### C BCDSAT ####[facility] [id number] [place] [address], MCHC (RBC) [Mass/Vol] 34.1 g/dL Normal 32.0-35.9 [facility] Comment on above: Performed By: #### C BCDSAT ####[facility] [id number] [place] [address], MCV (RBC) [Entitic vol] 98 fL Normal 80-100 [facility] Comment on above: Performed By: #### C BCDSAT ####[facility] PATH[facility] [id number] [place], MONOCYTE DISTRIBUTION WIDTH 16 Normal <=20 The [facility] Comment on above: Performed By: #### C BCDSAT ####[facility] [id number] [place] [address], Monocytes (Bld) [#/Vol] 0.48 10*3/uL Normal 0.20-1.00 The [facility] Comment on above: Performed By: #### C BCDSAT ####S PATHOLOGY [id number] [place], [place], Monocytes/100 WBC (Bld) 5.1 % Normal 2.0-11.0 [facility] Comment on above: Performed By: #### C BCDSAT ####S PATHOLOGY [id number] [place], Neutrophils (Bld) [#/Vol] 8.38 10*3/uL High 1.50-8.00 [facility] Comment on above: Performed By: #### C BCDSAT ####S PATHOLOGY [id number] [place], Neutrophils/100 WBC (Bld) 88.4 % High 31.0-76.0 [facility] Comment on above: Performed By: #### C BCDSAT ####[facility] PATH[facility] [id number] [place] [address], Platelet mean volume (Bld) [Entitic vol] 8.7 fL Normal 7.5-11.2 The [facility] Comment on above: Performed By: #### C BCDSAT ####S PATHOLOGY [id number] [place] [address], Platelets (Bld) [#/Vol] 182 10*3/uL Normal 150-400 The [facility] Comment on above: Performed By: #### C BCDSAT ####[facility] [id number] [place], RBC (Bld) [#/Vol] 3.67 10*6/uL Low 4.50-5.90 The [facility] Comment on above: Performed By: #### C BCDSAT ####[facility] [id number] [place], [place], WBC (Bld) [#/Vol] 9.5 10*3/uL Normal 4.5-11.5 [facility] Comment on above: Performed By: #### C BCDSAT ####[facility] [id number] [place], [id number] CT HEAD W/O CONTRASTon 02-20 CT HEAD W/O CONTRAST EXAMINATION: CT HEA D W/O CONTRAST CLINICAL HISTORY: Reason for Exam: Intracranial bleeding or injury on imaging ASSOCIATED DIAGNOSIS: Intracranial bleeding or injury on imaging TECHNOLOGISTS NOTE: COMPARISON: None TECHNIQUE: Thin axial imaging of the head was performed without intravenous contrast. FINDINGS: No mass or acute hemorrhage. No evidence of acute infarct. Mild generalized brain parenchymal volume loss with normal caliber ventricles. Scattered patchy foci of white matter hypoattenuation, most likely mild chronic microvascular angiopathy. The skull, paranasal sinuses and tympanomastoid cavities appear intact. Lobular mucosal thickening involving the left maxillary sinus, with mild scattered mucosal thickening in the right maxillary sinus and multiple ethmoid air cells. Small to moderate size contusion and hematoma in the left posterior scalp soft tissues, with small foci of subcutaneous gas. IMPRESSION: No acute intracranial abnormality. Left scalp hematoma. MACRO: None Normal [facility] Consultson 02-20-2021 Plant Taxonomist Authentication Interface Message Text NEUROSURGERY CRANIAL TRAUMA H AND P Patient Name: Reji Pinon Primary Care Physician: No primary care provider on file. CONSULTED BY: trauma CONSULTED FOR: tSAH CHIEF COMPLAINT: fall with CTH showing a tSAH HPI: 60y/oM with no known PMH who presents to ED as an OSH transfer for a fall down stairs. He states he was walking, slipped, and fell down stairs. Documented LOC and EtOH use. He was sedated prior to arrival with 70mg ketamine and 4mg Versed. OSH CTH shows trace SAH in L frontal cerebral sulci for which NSGY is consulted. He denies symptoms prior to fall such as GARCÍA, vision changes. He currently denies GARCÍA, vision changes, N/V, paresthesias. Additional injuries include: Large cephalohematoma with arterial bleed repaired in ED. Antiplatelet/Anticoag ulant: denies Coags: 1.10 INR, 12.2 PT, 23 aPTT, 182 PLTs Sodium: 133 Previous TBI:No PAST MEDICAL HISTORY: denies, I don't go to the doctor No past medical history on file. PAST SURGICAL HISTORY: denies No past surgical history on file. FAMILY HISTORY: no FMHx of bleeds, seizures No family history on file. SOCIAL HISTORY: drinks depending on the day...2, 4, 6 beers yeah let's say that . Denies drug use and smoking. Social History Occupational History * Not on file Tobacco Use * Smoking status: Not on file Substance and Sexual Activity * Alcohol use: Not on file * Drug use: Not on file * Sexual activity: Not on file MEDICATIONS: denies ALLERGIES: Not on File COMPLETE REVIEW OF SYSTEMS: ROS 03/26 systems negative other than above LABS: Basic Metabolic Panel None PHYSICAL EXAM: Awake, oriented x 3 PERRL, EOMI FS, TM BUE 08/17, no drift BLE 08/17 SILTx4 PHYSICAL EXAMINATION: Vital signs reviewed General appearance: appears younger than stated age Skin: warm, dry Head: Normocephalic. Dried blood throughout hair and shoulders. Large L laceration covered with clean gauze. Nose/Sinuses: Nares normal. Neck: trachea midline, C collar in place Lungs: chest symmetric, normal respiratory rate and rhythm Heart: slight tachycardia on tele monitor Abdomen: soft, nontender Extremities: Extremities normal. No deformities or edema Neuro: above RADIOLOGY: 02/19 CTH from OSH 2030: Trace SAH in the left frontal cerebral sulci. Prominent L parietal and occipital scalp hematoma and laceration. No acute fracture. Small amount of fluid in the R mastoid air cells. [place] CT SCORE: 1. Basal cisterns: 0: Normal 2. Midline shift: 0: Less than or equal to 5 mm 3. Epidural mass lesion: 0: Absent 4. Intraventricular blood or traumatic SAH: 1: Present Total Score: 2 (Calculated sum + 1) Six Month Mortality: Score 1: 0% Score 2: 7% Score 3: 16% Score 4: 26% Score 5: 53% Score 6: 61% 1. TBI sub-type: SAH 2. Laterality: Left 3. Location: Frontal 4. Pupillary response: Both reactive 5. Associated conditions: Hyponatremia 6. Loss of consciousness: Less than 30 minutes ASSESSMENT/PLAN: 60y/oM with no known PMH presents to ED as an OSH transfer for a fall down stairs. Documented LOC and EtOH use. He was sedated prior to arrival with 70mg ketamine and 4mg Versed. OSH CTH shows trace SAH in L frontal cerebral sulci for which NSGY is consulted. -Trauma primary, Q2 neuro checks through follow up scan -Repeat CT head 6 hours after initial imaging (~0230) -No need for Keppra -CIWA -SBP <170 per trauma guidelines -NPO -Ensure pre op labs complete (CBC, BMP, Type and Screen, PT/INT, PTT) -Hold all antiplatelets/anticoa gulants -Plts >100, INR <1.4 -Normonatremia, normothermia (<38.0 C) , euvolemia -SCDs only at this time for DVT prophylaxis. Hold H at this time -No acute neurosurgical intervention. Will continue to follow Patient was seen and examined within 30 minutes of consultation and will be discussed with staff shortly. Please call anytime with questions or concerns. Mala Duncan PA-C Neurosurgery Pager [phone] Normal [facility] ED Noteson 02-20-2021 Plant Taxonomist Authentication Interface Message Text Patient up in wheelchair and refusing to get back into bed. Normal [facility] ED Provider Noteson 02-21-20 Plant Taxonomist Authentication Interface Message Text HISTORY OF PRESENT ILLNESS ----- 02/19/2021, 10:10 PM. Category: 2 The [facility] The history is provided by EMS. Reji Pinon is a 60 year old male brought to the ED s/p mechanical fall down the stairs. Patient noted to have +EtOH use today. Patient had +head trauma and +LOC and was down for 5 minutes according to family. Upon EMS arrival, patient was found to have a head laceration to the posterior head with arterial bleeding. Patient initially seen at [facility]. Patient was found to have a subarachnoid hemorrhage at the OSH. Cervical spine was cleared. Laceration repair of the head wound was performed. Patient refused transfer to [facility] and was combative and required medical sedation with 70 mg of ketamine and 4 mg of versed by [employer]. Pre hospital information: patient placed in c-collar. REVIEW OF SYSTEMS Review of Systems A complete Review of Systems is unable to be obtained due to the patient's altered mentation from intoxication and sedating medications administered while with [facility] PAST HISTORY -- Past Medical History: unable to be obtained due to the patient's altered mentation from intoxication and sedating medications administered while with [facility] Past Surgical History: unable to be obtained due to the patient's altered mentation from intoxication and sedating medications administered while with [facility] Social History: unable to be obtained due to the patient's altered mentation from intoxication and sedating medications administered while with [facility] Family History: unable to be obtained due to the patient's altered mentation from intoxication and sedating medications administered while with [facility] Unable to ask patient about medications he is taking due to his altered mentation. Allergies: Patient has no known allergies. PHYSICAL EXAM Vitals Recorded in This Encounter 02/19/2021222902/19/2021223202/19/2021 2330 02/20/2021 0000 02/20/2021 0030 BP: 130/80 132/61 152/91 140/91 102/76 Pulse: (!) 108 (!) 107 (!) 120 (!) 107 (!) 121 Resp: 20 17 20 (!) 23 (!) 22 SpO2: 98 % 98 % 97 % 97 % 98 % Primary Survey Airway: Intact Breathing: Bilateral breath sounds Circulation: Palpable bilateral femorals, Palpable bilateral radial, Palpable bilateral DP and Palpable bilateral PT Spine precautions: C-Collar Total Arin Coma Scale: 13 Eyes: eyes open to speech = 3 Verbal: confused = 4 Motor: obeys commands = 6 Secondary Survey Constitutional: Appropriate and Non-toxic appearing Head: Midface is stable. No step-offs. No Raccoon eyes. Large cephalohematoma to left posterior head with mild active bleeding. Laceration is 4.5 cm and curvilinear. Several sutures in place at head laceration. Eyes: Pupils are 3 mm bilaterally and minimally reactive to light. EOMI. No conjunctival injection. Ears: No hemotympanum. Nose: No nasal deformity. No septal hematoma. Mouth/Throat: Airway intact. No malocclusion. No dental injury. No jaw tenderness. Neck: C-collar in place. Trachea midline. No cervical midline bony tenderness, deformities, or step-offs. No trauma to anterior neck. Cardiovascular: tachycardic. Regular rhythm. Heart sounds normal. Peripheral pulses are 2+ in all extremities. Pulmonary/Chest: Lungs are clear bilaterally. No decreased breath sounds. No external evidence of trauma to the chest. Chest wall is stable and non-tender. No crepitus. No flail segment. No asymmetric rise. Abdominal: No distension. Soft. No tenderness to palpation. No external evidence of abdominal trauma. Genitourinary: No evidence of genital injury. No blood at urethral meatus. Back: No midline bony tenderness, deformities, or step-offs of the thoracic or lumbar spine. No abrasions or ecchymosis. Rectal: No gross blood. Normal rectal tone. Musculoskeletal: Pelvis stable to compression and non tender. RUE: No deformities. Full ROM. There is no bony tenderness. LUE: No deformities. Full ROM. There is no bony tenderness. RLE: No deformities. Full ROM. There is no bony tenderness. LLE: No deformities. Full ROM. There is no bony tenderness. Skin: Normal color. Neurological: GCS score is 13. Strength is 5/5 in upper and lower extremities bilaterally. Distal sensation grossly intact. Psychiatric: Normal affect. ED COURSE IN TRAUMA [place]AY Initial vitals at 10:15 PM: HR 110, spo2 98, rr 20, bp 124/82 10:20 PM: HR 115, spo2 94, rr 16, bp 127/96 Consultations: Trauma is at bedside and assisted with evaluation and formulation of plan. --- (more content not included)... Normal [facility] ED Triage Noteson 02-20-2021 Plant Taxonomist Authentication Interface Message Text Prehospital Medications: See [facility] documentation for medication information. [facility] [employer] gave patient 70mg Ketamine, and 4mg versed for being combative. Normal [facility] Plant Taxonomist Authentication Interface Message Text Patient was drinking this evening and fell down an unknown amount of stairs. Patient had a +LOC for about 5 minutes according to family. Patient was a tranfers from [facility]. Normal [facility] ETHANOL, SERUMon 02-20-2021 Ethanol [Mass/Vol] 114 mg/dL High None Detected [facility] Comment on above: Performed By: #### C H8, ETOH #### [facility] [address] [place], [id number] HIV1 HIV2 AGAB SCRNon 2020 HIV AG-AB SCREEN Non-Reactive Normal Non-Reactive [facility] Comment on above: Order Comment: HIV I nformation: ???[place] Rev. code 3701.243(E):This information has been disclosed to you from confidential records protected from disclosure by state law. ???You shall make no further disclosure of this information without the specific, written, and informed release of the individual to whom it pertains, or as otherwise permitted by state law. ???A general authorization for the release of medical or other information is not sufficient for the purpose of the release of HIV test results or diagnoses. Result Comment: No l aboratory evidence for HIV Infection. Negative result does not rule out acute HIV infection. If acute HIV infection is suspected, recommend ordering an HIV-1 RNA quanitification test. Performed By: #### h iv1 hiv2 agab scrn ####[facility] [id number] [place], [place], LACTIC ACIDon 02-20-2021 CR LACT 1.9 mmol/L Normal 0.5-2.0 [facility] Comment on above: Performed By: #### L ACT #### [facility] [address] [place], [place], PARTIAL THROMBOPLASTIN TIMEo n 02-20-2021 aPTT Coag (Bld) [Time] 23 s Low 25-37 [facility] Comment on above: Performed By: #### A PTT, PT #### [facility] [address] [place], [place], PROTHROMBIN TIME AND INRon 1 04-22-2020 INR Coag (PPP) [Relative time] 1.10 {INR} Normal 0.90-1.10 [facility] Comment on above: Performed By: #### A PTT, PT #### [facility] [address] [place] [address], PT Coag (PPP) [Time] 12.2 s Normal 9.7-12.9 [facility] Comment on above: Performed By: #### A PTT, PT #### [facility] [address] [place] [address], Progress Noteson 02-20-2021 Plant Taxonomist Authentication Interface Message Text CAT 2: Fall Pt is a 60 year old male presenting to the ED following a fall. Pt was drinking this evening when he fell down an unknown amount of steps. Pt did have LOC for about 5 minutes. Pt was taken to an OSH where he was found to have a SAH. Pt presenting to the ED with a lac to the back of the head. SW left a voicemail for pt's Grecia Pinon [phone] providing an update. Plan: likely admit Jalyn Tripathi TIMEKEEPING SUPERVISOR, TELEPHONE ADVICE NURSE ED Extra Hand Pager: [phone] Normal [facility] TYPE AND SCREENon 02-20-2021 ABO and Rh group Nom (Bld) Blood group O Rh(D) positive Normal [facility] Comment on above: Performed By: #### T S #### [facility] [address] [place], [place], ABO and Rh group Nom (Bld) No Previous Results Normal [facility] Comment on above: Performed By: #### T S #### [facility] [address] [place], [place], ABSC INT Negative Normal [facility] Comment on above: Performed By: #### T S #### [facility] [address] [place], [place], Vital Signs Date Time Vital Sign Value Performing Clinician Facility 08-13-2023 08:41-0400 Body height 172.72 cm [facility] 08-13-2023 08:41-0400 Body mass index (BMI) [Ratio] 31.3 kg/m2 [facility] 08-13-2023 08:41-0400 Body weight 93.49 kg [facility] 08-13-2023 08:41-0400 Diastolic blood pressure 88 mm[Hg] [facility] 08-13-2023 08:41-0400 Heart rate 71 /min [facility] 08-13-2023 08:41-0400 Respiratory rate 12 /min [facility] 08-13-2023 08:41-0400 Systolic blood pressure 139 mm[Hg] [facility] 03-29-2023 14:30-0500 Body height 172.72 cm Stevie Ball Other [facility] Other 03-29-2023 14:30-0500 Body mass index (BMI) [Ratio] 30.16 kg/m2 Stevie Ball Other [facility] Other 03-29-2023 14:30-0500 Body weight 89.99 kg Stevie Ball Other [facility] Other 03-29-2023 14:30-0500 Diastolic blood pressure 75 mm[Hg] Stevie Ball Other [facility] Other 03-29-2023 14:30-0500 Respiratory rate 12 /min Stevie Ball Other [facility] Other 03-29-2023 14:30-0500 Systolic blood pressure 109 mm[Hg] Stevie Ball Other [facility] Other 11-19-2022 15:30-0400 Body height 172.72 cm Stevie Ball Other [facility] Other 11-19-2022 15:30-0400 Body mass index (BMI) [Ratio] 28.73 kg/m2 Stevie Ball Other [facility] Other 11-19-2022 15:30-0400 Body weight 85.73 kg Stevie Ball Other [facility] Other 11-19-2022 15:30-0400 Diastolic blood pressure 102 mm[Hg] Stevie Ball Other [facility] Other 11-19-2022 15:30-0400 Respiratory rate 12 /min Stevie Ball Other [facility] Other 11-19-2022 15:30-0400 Systolic blood pressure 156 mm[Hg] Stevie Ball Other [facility] Other 08-08-2022 16:30-0400 Body height 172.72 cm Stevie Ball Other [facility] Other 08-08-2022 16:30-0400 Body mass index (BMI) [Ratio] 29.56 kg/m2 Stevie Ball Other [facility] Other 08-08-2022 16:30-0400 Body weight 88.18 kg Stevie Ball Other [facility] Other 08-08-2022 16:30-0400 Diastolic blood pressure 95 mm[Hg] Stevie Madsen Other [facility] Other 08-08-2022 16:30-0400 Respiratory rate 12 /min Stevie Madsen Other [facility] Other 08-08-2022 16:30-0400 Systolic blood pressure 143 mm[Hg] Stevie Madsen Other [facility] Other 09-04-2021 14:11-0400 Blood Pressure Location Bora LOYD [facility] 09-04-2021 14:11-0400 Diastolic blood pressure 94 mm[Hg] [facility] 09-04-2021 14:11-0400 Heart rate 104 /min [facility] LO[facility] 09-04-2021 14:11-0400 Systolic blood pressure 139 mm[Hg] [facility] 08-18-2021 13:54-0400 Blood Pressure Location Janusz NILL [facility] [place] 08-18-2021 13:54-0400 Diastolic blood pressure 92 mm[Hg] Janusz NILL [facility] [place] 08-18-2021 13:54-0400 Heart rate 80 /min Janusz NILL [facility] [place] 08-18-2021 13:54-0400 Respiratory rate 16 /min Janusz BRADY [facility] [place] 08-18-2021 13:54-0400 Systolic blood pressure 130 mm[Hg] Janusz BRADY [facility] [place] Encounters Encounter Date Encounter Type Care Provider Facility Start: 08-13-2023 End: 08-13-2023 ambulatory [facility] Work Phone: Start: 08-13-2023 End: 08-13-2023 Encounter for general adult medical examination without abnormal findings [facility] Start: 08-13-2023 End: 08-13-2023 Patient encounter procedure [facility] Work Phone: Start: 08-07-2023 Non-patient / Non-visit [facility] [employer] [employer] Work Phone: Start: 03-29-2023 End: 03-29-2023 ambulatory Stevie Madsen Other [facility] Other Start: 03-29-2023 Office outpatient vi sit 15 minutes Stevie Cale [facility] Start: 03-28-2023 End: 03-29-2023 ambulatory Jenna Jian GURDEEP Facility:[facility] Start: 02-20-2023 End: 02-20-2023 ambulatory Stevie Madsen Other [facility] Other Start: 02-20-2023 Telephone encounter Stevie Madsen [facility] Start: 01-23-2023 End: 01-23-2023 ambulatory Stevie Ball Other [facility] Other Start: 01-23-2023 Telephone encounter Stevie Madsen [facility] Start: 12-28-2022 End: 12-28-2022 ambulatory Stevie Cale Other [facility] Other Start: 12-28-2022 Telephone encounter Stevie Madsen [facility] Start: 12-10-2022 End: 12-10-2022 ambulatory Stevie Madsen Other [facility] Other Start: 12-10-2022 Telephone encounter Stevie Cale [facility] Start: 11-19-2022 End: 11-19-2022 ambulatory Stevie Madsen Other [facility] Other Start: 11-19-2022 Office outpatient vi sit 25 minutes Stevie Madsen [facility] Start: 09-06-2022 End: 09-06-2022 ambulatory Stevie Madsen Other [facility] Other Start: 09-06-2022 Telephone encounter Stevie Madsen JYOTI [facility] Start: 08-27-2022 End: 08-27-2022 ambulatory Stevie Madsen Other [facility] Other Start: 08-27-2022 Telephone encounter Stevie Madsen [facility] Start: 08-24-2022 End: 08-25-[address] STEVIE MADSEN Facility:[facility] Start: 08-09-2022 Encounter for genera l adult medical examination without abnormal findings DR STEVIE MADSEN [facility] Start: 08-08-2022 End: 08-08-2022 ambulatory Stevie Madsen Other [facility] Other Start: 08-08-2022 Encounter for genera l adult medical examination without abnormal findings Stevie Madsen [facility] Start: 08-08-2022 Periodic preventive med est patient 40-64yrs Stevie Madsen [facility] Start: 08-03-2022 End: 08-04-[address] STEVIE MADSEN Facility:[facility] Start: 08-03-2022 End: 08-04-2022 Encounter for general adult medical examination without abnormal findings DR STEVIE MADSEN Facility:[facility] Start: 10-20-2021 End: 10-20-2021 Patient encounter procedure Bora LOYD [facility] Start: 09-20-2021 Encounter for preprocedural cardiovascular examination DR BORA LOYD . [facility] Start: 09-20-2021 Encounter for preprocedural laboratory examination DR BORA LOYD . [facility] Start: 09-20-2021 End: 09-20-[address] JANUSZ BRADY . Facility:[facility] Start: 09-14-2021 End: 09-14-[address] BORA LOYD . Facility:[facility] Start: 09-13-2021 End: 09-14-[address] BORA LOYD . Facility:[facility] Start: 09-13-2021 End: 09-14-2021 Encounter for preprocedural laboratory examination DR BORA LOYD . Facility:[facility] Start: 09-04-2021 End: 09-04-2021 Patient encounter procedure Bora LOYD [facility] Start: 08-18-2021 End: 08-18-2021 Patient encounter procedure Janusz BRADY [facility] [place] Start: 08-01-2021 Adult health examination Salty Madsen Other [facility] Other Start: 08-01-2021 Encounter for genera l adult medical examination without abnormal findings Stevie Madsen Other [facility] Other Start: 02-20-2021 End: 02-20-2021 ambulatory UNKNOWN PROVIDER Facility:[facility] Start: 02-20-2021 End: 02-20-2021 Emergency department patient visit GO CHAVES Facility:[facility] Start: 02-19-2021 ambulatory UNKNOWN PROVIDER Facili ty:[facility] Procedures Date Procedure Procedure Detail Performing Clinician Start: 08-03-[address] CRAFT IN [place] Comment on above: Performed By: #### [facility] #### [facility] [address] [place] [address] Dr. Christiano William Start: 09-14-2021 Excision of spermatocele Bora LOYD Start: 06-18-2016 Colonoscopy Janusz SHARMA TIM Depression screening Niels Madsen Other Screening for cancer Niels Madsen Other Immunizations Immunization Date Immunization Notes Care Provider Fa cility 07-29-2020 COVID-19, mRNA, LNP- S, PF, 30 mcg/0.3 mL dose; Translations: [Pfizer-BioNTech COVID-19 Vaccine] Janusz IGORL [facility] [place] Comment on above: Reason for Medicatio n: Prophylaxis 07-01-2020 COVID-19, mRNA, LNP- S, PF, 30 mcg/0.3 mL dose; Translations: [Pfizer-BioNTech COVID-19 Vaccine] Janusz IGORL [facility] [place] Comment on above: Reason for Medicatio n: Prophylaxis 07-22-2013 tetanus toxoid, redu kesha diphtheria toxoid, and acellular pertussis vaccine, adsorbed Janusz BRDAY [facility] [place] Payers Date Payer Category Payer Unknown [id number] 1960 Unknown [id number]. [id number] 1960 Unknown [id number] 1960 Unknown [id number] 1960 Unknown [id number] 2.16.84 [id number] 1960 Unknown [id number] 2.16.84 [id number] 1960 Unknown [id number] 2.16.84 [id number] 1960 Unknown [id number] 2.16.84 [id number] 1960 Unknown [id number] 2.16.84 [id number] 1959 [facility] AWA [id number] Social History Date Type Detail Facility Start: 08-18-2021 End: 10-20-2021 Tobacco smoking status Never smoked tobacco (finding) [facility] Comment on above: uses snuff Tobacco smoking status Smokeless tobacco user within last 30 days [facility] [employer] Comment on above: uses snuff Sex Assigned At Male Genera [facility] [place] [employer] Start: 1960 Sex Assigned At Male [facility] Functional Status Date Assessment Result Facility 10-20-2021 Functional Status N/A [facility] [place] [employer] Clinical Notes 02-20-2021 to 03-29-2023 Note Date & Type Note Facility 03-29-2023 Evaluation note Encounter Date Diagnosis Assessment Notes Mar, Primary hypertension (ICD-10 - I10) Echo: 4.9cm - 08/2022 This patient is instructed to consume a healthy, low-fat, low-salt diet. They are also encouraged to continue exercise to achieve/maintain a normal BMI. Mar, Bicuspid aortic valve (ICD-10 - Q23.1) Explained increased risk of Serial Echocardiogram Mar, Aneurysm of ascending aorta without rupture (ICD-10 - I71.21) Maintain normal BP readings. Serial Echo to document stability. Mar, Mild episode of recurrent major depressive disorder (ICD-10 - F33.0) Healthy diet, exercise and keep active. Proper sleep routine. [facility] Other 10-11-2023 Evaluation note* Encounter Date Diagnosis Assessment Notes Treatment Notes Treatment Clinical Notes Jan, Primary hypertension (ICD-10 - I10) [facility] Other 09-15-2023 Evaluation note* Encounter Date Diagnosis Assessment Notes Treatment Notes Treatment Clinical Notes Dec, Primary hypertension (ICD-10 - I10) [facility] Other 08-28-2023 Evaluation note* Encounter Date Diagnosis Assessment Notes Treatment Notes Treatment Clinical Notes Nov, Primary hypertension (ICD-10 - I10) [facility] Other 08-07-2023 Evaluation note* Encounter Date Diagnosis Assessment Notes Treatment Notes Treatment Clinical Notes Nov, Bicuspid aortic valve (ICD-10 - Q23.1) Reviewed results Explained 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 Treatment would be adequate control of BP Nov, Elevated BP without diagnosis of hypertension (ICD-10 - R03.0) This patient is instructed to consume a healthy, low-fat, low-salt diet. They are also encouraged to continue exercise to achieve/maintain a normal BMI. Hesitant to start medical therapy since no one else has brought this to his attention in the past Patient is instructed on home BP measurements: - rest for 5 minutes w/o talking- positioned w/ feet on floor and arm supported- average best 2/3 readings w/ goal < 135-85 Nov, Overweight (ICD-10 - E66.3) This patient has been instructed on a low fat, high fiber diet. They are instructed to reduce calories, portion sizes and snacks. It is recommended that they exercise for 30 minutes, 3-5x weekly. This patient has been instructed on a low-fat, high-fiber diet. They are instructed to reduce calories, portion sizes and snacks. It is recommended that they exercise for 30 minutes, 3-5 times weekly. Nov, Fatigue, unspecified type (ICD-10 - R53.83) Explained this problem has a broad etiology Thyroid disease and Low testosterone haven't been checked - orders w/ instructions to have done at 8am given to patient Depression and HÉCTOR were also discussed - he admits to depression since 's [facility] Other 05-25-2023 Evaluation note* Encounter Date Diagnosis Assessment Notes Treatment Notes Treatment Clinical Notes August, Aneurysm of ascending aorta without rupture (ICD-10 - I71.21) ECHO: 4.9cm - 08/2022 [facility] Other 05-15-2023 Evaluation note* Encounter Date Diagnosis Assessment Notes Treatment Notes Treatment Clinical Notes August, SOB (shortness of breath) (ICD-10 - R06.02) August, Chronic cough (ICD-10 - R05.3) August, Post COVID-19 condition, 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 FINDINGS: LUNGS: No significant pulmonary parenchymal abnormalities. VASCULATURE: No increased pulmonary vasculature. PLEURA: No pneumothorax, effusion, or pleural thickening. CARDIAC: No cardiomegaly or cardiac silhouette abnormality. MEDIASTINUM: No visible mass or adenopathy. BONES: No fracture or visible bone lesion. OTHER: Negative. IMPRESSION: 1. No acute cardiopulmonary process. 2. Minimal chronic interstitial changes. Electronically authenticated by: OCTAVIO SANCHEZ Date: 2022-08-24 15:03[facility]04-26-2023 Evaluation note* Encounter Date Diagnosis Assessment Notes Treatment Notes Treatment Clinical Notes Jul, Wellness examination (ICD-10 - Z00.00) Healthy diet and exercise. Reviewed age-appropriate preventive testing recommended. 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 Dyspnea concerning for myocarditis and chronic interstitial lung disease. - recommend Echocardiogram to assess LV function - recommend CXR to r/o infiltrate or fluid Jul, Benign prostatic hyperplasia with lower urinary tract symptoms (ICD-10 - N40.1) Symptoms tolerable MARK and PSA yearly Jul, Dyspnea on exertion (ICD-10 - R06.09) Secondary to COVID - echocardiogram to assess cardiac function as possible source for dyspnea - CXR to assess for pulmonary source for dyspnea Jul, Nocturia (ICD-10 - R35.1) Jul, Carotid bruit, unspecified laterality (ICD-10 - R09.89) Family hx of CVA - recommend carotid US Jul, Family hx of colon cancer (ICD-10 - Z80.0) Serial scopes, last completed in 2021, repeat in 5 years Jul, Family history of CVA (ICD-10 - Z82.3) Primary prevention measures discussed. Nonsmoker Recheck BP at home w/ goal < 135/85 Check Carotid US [facility] Other 07-08-2022 Hospital Discharge instructions Patient Education 10/20/2021 09:42:51 Spermatocele Spermatocele A spermatocele is a fluid-filled sac (cyst) inside the scrotum. This type of cyst often forms at the top of the testicle where sperm is stored (epididymis). The cyst sometimes forms along the tube that carries sperm away from the epididymis (vas deferens). Spermatoceles are usually painless. Most cysts are small, but they can grow larger. Spermatoceles are not cancerous (are benign). What are the causes? The cause of this condition is not known. What are the signs or symptoms? In most cases, small cysts do not cause symptoms. If you do have symptoms, they may include: Dull pain. A feeling of heaviness. An enlargement of your scrotum, if the cyst is large. How is this diagnosed? This condition is diagnosed based on a physical exam. You or your health care provider may notice the cyst when feeling your scrotum. Your provider may shine a light through (transilluminate) your scrotum to see if light will pass through the cyst. You may also have an ultrasound of your scrotum torule out a tumor. How is this treated? Small spermatoceles do not need to be treated. If the spermatocele has grown large or is uncomfortable, surgery to remove the cyst may be recommended. Follow these instructions at home: Watch your spermatocele for any changes. Keep all follow-up visits as told by your health care provider. This is important. Contact a health care provider if: Your spermatocele gets larger. You have pain in your scrotum. Your spermatocele comes back after treatment. This information is not intended to replace advice given to you by your health care provider. Make sure you discuss any questions you have with your health care provider. Document Released: 07/23/2016 Document Revised: 03/14/2018 Document Reviewed: 04/15/2016 ERPLY Patient Education 2020 [employer]. Follow Up Care 09/04/2021 15:28:27 With:EVERT DEE, Bora [place], URL Address: [address] [place] [id number]- When:Within 3 Month(s) [facility] 06-08-2022 NoteOPERATIVE NOTE OPERATION DATE: 09/20/2021 PREOPERATIVE DIAGNOSIS: Family history of colon cancer. POSTOPERATIVE DIAGNOSIS: Normal colonoscopy to cecum. PROCEDURE: Colonoscopy to cecum. SURGEON: Janusz Brady M.D. ANESTHESIA: Monitored anesthesia care. ESTIMATED BLOOD LOSS: Zero. INDICATIONS AND CONSENT: Patient is a 62-year-old male who presents for surveillance colonoscopy due to family history of colon cancer. Indications, risks, benefits, alternatives of proceeding with colonoscopy were explained extensively to the patient, including the risks of bleeding, colon perforation or anesthetic complications. All of his questions were answered. Informed consent was obtained. PROCEDURE: Patient brought to the operating room, placed in the left lateral decubitus position. Monitored anesthesia care was provided. Rectal exam was performed which showed no masses or blood. The scope was inserted into the anal canal. Under direct visualization was advanced. With the aid of abdominal compression, it was advanced to the cecum where cecal markings were clearly identified. There was noted to be a good prep. Upon withdrawal of the scope, mucosal surfaces were carefully examined. There were no mass lesions or polyps. No inflammatory changes or ulcerations. No significant diverticulosis. The scope was retroflexed in the anal canal. There was no significant hemorrhoidal disease. Scope was then withdrawn. Patient tolerated procedure well, was sent to recovery room in good condition. FOLLOW UP COLONOSCOPY: Should be in five years due to the family history of colon cancer. CC: Stevie Madsen D.O. [facility] Signed and Approved by: DR JANUSZ BRADY . 09/21/2021 12:58:00[facility]05-23-2022 Hospital Discharge instructions Patient Education 09/04/2021 08:28:06 Hydrocele, Adult Hydrocele, Adult A hydrocele is a collection of fluid in the loose pouch of skin that holds the testicles (scrotum).This may happen because: The amount of fluid produced in the scrotum is not absorbed by the rest of the body. Fluid from the abdomen fills the scrotum. Normally, the testicles develop in the abdomen then move (drop) into to the scrotum before . The tube that the testicles travel through usually closes after the testicles drop. If the tube does not close, fluid from the abdomen can fill the scrotum. This is less common in adults. What are the causes? The cause of a hydrocele in adults is usually not known. However, it may be caused by: An injury to the scrotum. An infection (epididymitis). Decreased blood flow to the scrotum. Twisting of a testicle (testicular torsion). A defect. A tumor or cancer of the testicle. What are the signs or symptoms? A hydrocele feels like a water-filled balloon. It may also feel heavy. Other symptoms include: Swelling of the scrotum. The swelling may decrease when you lie down. You may also notice more swelling at night than in the morning. Swelling of the groin. Mild discomfort in the scrotum. Pain. This can develop if the hydrocele was caused by infection or twisting. The larger the hydrocele, the more likely you are to have pain. How is this diagnosed? This condition may be diagnosed based on: Physical exam. Medical history. You may also have other tests, including: Imaging tests, such as ultrasound. Blood or urine tests. How is this treated? Most hydroceles go away on their own. If you have no discomfort or pain, your health care provider may suggest close monitoring of your condition (called watch and wait or watchful waiting) until thecondition goes away or symptoms develop. If treatment is needed, it may include: Treating an underlying condition. This may include using an antibiotic medicine to treat an infection. Surgery to stop fluid from collecting in the scrotum. Surgery to drain the fluid. Options include: ?Needle aspiration. A needle is used to drain fluid. However, the fluid buildup will come back quickly. ?Hydrocelectomy. For this procedure, an incision is made in the scrotum to remove the fluid sac. Follow these instructions at home: Watch the hydrocele for any changes. Take dnlo-kcq-kovpvnz and prescription medicines only as told by your health care provider. If you were prescribed an antibiotic medicine, use it as told by your health care provider. Do not stop taking the antibiotic even if you start to feel better. Keep all follow-up visits as told by your health care provider. This is important. Contact a health care provider if: You notice any changes in the hydrocele. The swelling in your scrotum or groin gets worse. The hydrocele becomes red, firm, painful, or tender to the touch. You have a fever. Get help right away if you: Develop a lot of pain, or your pain becomes worse. Summary A hydrocele is a collection of fluid in the loose pouch of skin that holds the testicles (scrotum). Hydroceles can cause swelling, discomfort, and sometimes pain. In adults, the cause of a hydrocele usually is not known. However, it is sometimes caused by an infection or a rotation and twisting of the scrotum. Treatment is usually not needed. Hydroceles often go away on their own. If a hydrocele causes pain,treatment may be given to ease the pain. This information is not intended to replace advice given to you by your health care provider. Make sure you discuss any questions you have with your health care provider. Document Released: 09/19/2010 Document Revised: 04/12/2018 Document Reviewed: 04/12/2018 ERPLY Patient Education 2019 [employer]. Follow Up Care 08/03/2021 10:14:47 With:EVERT DEE, [place]ora [place], URL Address: [facility] [address] , [place] [address]- When: Unknown [facility] 11-08-2021 NoteDISCHARGE SUMMARY [address] [id number] Reji Pinon Date of : 1960 60 year oldmale Attending Go Chaves MD Date of Admission 02/19/2021 Date of Discharge 02/20/21 DIAGNOSES: Scalp Laceration. PROCEDURES: None DISCHARGE MEDICATIONS: There are no discharge medications for this patient. Current Facility-Administered Medications: * lidocaine (LIDODERM) 5 % patch, 2 Patch, Transdermal, Every 24 hours, Alejandro Abad MD, 2 Patch at 02/19/21 2332 No current outpatient medications on file. [use for patients going to inpatient rehab only, otherwise delete this list of meds] REASON FOR HOSPITALIZATION: Fall from standing with suspected L sided SAH SIGNIFICANT FINDINGS: Catalog of Injuries - Scalp Laceration Incidental Findings None HOSPITAL COURSE: 60 year old male who presents to [facility] as a transfer from [facility] after a mechanical fall down stairs resulting in a possible small L sided SAH. Repeat CT head on [facility] did not showed such head bleeding. NSGY was consulted and given lack of head bleed there was no indication for admission or surgical intervention at this time. Patient re-evaluated prior to discharge and he was hemodynamically stable. Motor and sensory intact in B/L UE and LE and GCS was 15. ANTICIPATED FOLLOW UP: No future appointments. Other indicated follow up and instructions for scheduling: PCP as needed No discharge procedures on file. VTE RISK AT DISCHARGE: Per trauma program protocol, the patient DOES NOT REQUIRE post-discharge VTE prophylaxis due to: lack of traumatic injuries.[facility] [id number] NoteNeurosurgery Treatment Plan Note Repeat CTH does not demonstrate prior imaging finding from OSH. No acute neurosurgery intervention. No follow up necessary. Neurosurgery to sign off at this time. Please call anytime with questions or concerns. Mala Duncan PA-C Neurosurgery Service Pager: [phone] [phone] NoteTHE [facility] SUR[facility] TRAUMA SURGERY HISTORY AND PHYSICAL Reji Pinon [id number] 02/19/21 BASIC INJURY INFORMATION: Level of activation: Category 2 Trauma Mode of transport: [facility] Mechanism of injury: Fall from height or stairs Complicating features: Not applicable Protective measures: Not applicable Date of Injury: 02/19/21 Time of Injury: Unknown Patient origin: Transfer from outside facility HISTORY OF PRESENT INJURY: Reji Pinon is a 60 year old male brought in by life flight following a mechanical fall from standing height down stairs. He was initially evaluated at [facility] where he was noted to have a small SAH which prompted his transfer to [facility]. Patient was positive for EtOH and LOC is unknown. He is not on any anticoagulation or antiplatelet medications. A laceration was appreciated with a superficial arterial bleed which was repaired initially at OSH. During transfer process the patient became combative which required management w/ ketamine and versed by [facility]. Loss of consciousness: Unknown Initial interventions (prior to ED disposition): Other: ketamine, versed (Select all that apply.) Hemodynamic status witnessed in ED: None applicable (Select all that apply.) PRIMARY SURVEY: Airway: Intact Breathing: Normal Breath Sounds: Breath sounds equal bilaterally. Circulation: Pulses: Normal Skin: Laceration to posterior scalp. Normal skin color, texture, and turgor. No rashes. Disability: Pupils: Pupils equal and round. Minimally reactive to light. GCS: Best Eyes: 3 Best Verbal: 4 Best Motor: 6 Total: 13 SECONDARY SURVEY: Vitals: 02/19/21 2233 BP: 132/61 Pulse: (!) 107 Resp: 17 Temp: SpO2: 98% Neurologic: Strength symmetrical, no sensory deficits. HEENT: Head: Large cephalohematoma to the posterior scalp. Overlying laceration appreciated. Eyes: Pupils equal and round. Minimally reactive. Ears: No hemotympanum Nose: Septum midline, no crepitus with motion. Throat: Oral cavity without trauma. Neck: No midline tenderness, lacerations, or wounds Chest: No crepitus or pain with palpation; no abrasions or contusions; no gross deformities Pulmonary: Breath sounds clear, symmetrical; no wheezes, rales, or consolidation Cardiovascular: Pulses: Bilateral radial, femoral, DP and PT pulses are normal. Abdomen: Non-distended; non-tender to palpation; no scars, lacerations, or contusions Rectal: No gross blood noted. Pelvis/Perineum: Normal appearing genitalia Musculoskeletal: Back/Spine: No step-off or deformity noted Extremities: ROM normal, no gross deformities or abnormalities Adjunct Studies: None Check all that apply: Concern for intoxication PAST MEDICAL HISTORY: No past medical history on file. PAST SURGICAL HISTORY: No past surgical history on file. PRE-ADMISSION MEDICATIONS: (Not in a hospital admission) Anti-platelet use: No Anti-coagulant use: No ALLERGIES: No Known Allergies SOCIAL HISTORY: Social History Socioeconomic History * Marital status: Spouse name: Not on file * Number of children: Not on file * Years of education: Not on file * Highest education level: Not on file Social Determinants of Health Financial Resource Strain: * Difficulty of Paying Living Expenses: Food Insecurity: * Worried About Running Out of Food in the Last Year: * Ran Out of Food in the Last Year: Transportation Needs: * Lack of Transportation (Medical): * Lack of Transportation (Non-Medical): Physical Activity: * Days of Exercise per Week: * Minutes of Exercise per Session: Stress: * Feeling of Stress : Social Connections: * Frequency of Communication with Friends and Family: * Frequency of Social Gatherings with Friends and Family: * Attends Mandaeism Services: * Active Member of Clubs or Organizations: * Attends Club or Organization Meetings: * Marital Status: Intimate Partner Violence: * Fear of Current or Ex-Partner: * Emotionally Abused: * Physically Abused: * Sexually Abused: Living status: Home Primary language: Setswana Functional status: Unknown Impairments: Unknown Assistive Devices Used: Unknown FAMILY HISTORY: No family history on file. REVIEW OF SYSTEMS: Unable to obtain due to mental status BASIC LABS Results for orders placed or performed during the hospital encounter of 02/19/21 BASIC METABOLIC PANEL Result Value Ref Range Glucose 86 80 - 116 mg/dL Sodium 133 (L) 135 - 148 mmol/L Potassium 4.0 3.3 - 5.3 mmol/L Carbon Dioxide 20 (L) 21 - 30 mmol/L Chloride 105 97 - 111 mmol/L Blood Urea Nitrogen 9 8 - 22 mg/dL Creatinine 0.81 0.80 - 1.30 mg/dL Calcium 8.0 (L) 8.4 - 10.4 mg/dL Anion Gap 12 10 - 20 Estimated GFR (CKD-EPI) 97 >=60 mL/min/1.73sqm LACTIC ACID Result Value Ref Range Lactate 1.9 0.5 - 2.0 mmol/L CBC WITH DIFFERENTIAL Result Value Ref Range WBC 9.5 4.5 - 11.5 K/uL (more content not included)...[facility] Evaluation + Plan note Future Appointments Appointment Date:09/04/2021 02:00:00 PM Scheduled Provider:Bora LOYD MD Location:[facility] Appointment Type:URO New Patient General Surgery [place] Evaluation + Plan note Future Appointments Appointment Date:11/10/2021 08:00:00 AM Scheduled Provider:Bora LOYD MD Location:[facility] Appointment Type:URO Office Visit [facility] evaluation + Plan note Future Appointments Appointment Date:01/26/2022 09:30:00 AM Scheduled Provider:Bora LOYD MD Location:[facility] Appointment Type:URO Office Visit [facility] evaluation noteNo [employer] Other Evaluation note* Diagnosis Onset Date Resolution Status Benign prostatic hyperplasia with lower urinary tract symptoms acute Bicuspid aortic valve acute Hypertension acute Major depression acute Screening PSA (prostate specific antigen) noneactive Wellness examination noneact [facility] Work Phone: [facility] general Narrative - Reported* Type Description Date Medical History Testicular cyst Medical History Spermatocele Medical History Hydrocele, left Medical History Chewing tobacco kassidy ofe dependence without complication Medical History Acute pain of left shoulder Medical History Hydrocele in adult Surgical History COLONOSCOPY Surgical History LEFT SPERMATOCELECTOMY 2021 Hospitalization History SEE SURGICAL [facility] Other [facility] general Narrative - Reported* Type Description Date Medical History Testicular cyst Medical History Spermatocele Medical History Hydrocele, left Medical History Chewing tobacco kassidy ofe dependence without complication Medical History Acute pain of left shoulder Medical History Hydrocele in adult Medical History Bicuspid aortic valve Medical History Ascending aortic aneurysm Surgical History COLONOSCOPY Surgical History LEFT SPERMATOCELECTOMY 2021 Hospitalization History SEE SURGICAL [facility] Other Hospital course Narrative No data available for this section General Surgery [facility] Discharge instructions No data available for this section General Surgery [place] note No data available for this section [facility] Summary Purpose Family History Relationship Condition Age at Onset Recorded Date/T mariama father Heart disease Unknown Diabetes mellitus Unknown Hypertension Unknown Not Specified Family history of mental disorder Unknow n Malignant neoplasm Unknown Family history of colon cancer Unknown Advance Directives Advance Directive Response Recorded Date/ Time Advance Directives No May 13, 2023 1:52pm Chief Complaint and Reason for Visit Chief Complaint Wellness Reason for Visit Benign prostatic hyp erplasia with lower urinary tract symptoms Bicuspid aortic valve Hypertension Major depression Screening PSA (prostate specific antigen) Wellness examination Additional Source Comments (unrecognized sect ion and content) No Status Records FoundNo Status Records FoundNo Status Records Found INFORMATION SOURCE (unrecogn ized section and content) DATE CREATED AUTHOR 05/24/2021 [facility] DATE CREATED AUTHOR AUTHOR'S ORGANIZ ATION 08/25/2022 [facility] DATE CREATED AUTHOR AUTHOR'S ORGANIZ ATION 04/02/2023 [facility] Care Team (unrecognized sect ion and content) Team Status: Active Member Role Status Dates Stevie Madsen , Primary Care Provider Active Team Status: Active Member Role Status Dates Stevie Madsen DO Primary Care Provide r, Attending Provider Active Start: August 07, 2023 Team Status: Inactive Member Role Status Dates Stevie Madsen DO Primary Care Provide r, Attending Provider Active Start: August 13, 2023 End: August 13, 2023 REASON FOR VISIT (unrecogniz ed section and content) WELLNESSXray resultsNo Infor mation3 monthBP readingsBP readingsBP readingsBP readings4 month Follow up Goals (unrecognized section and content) Goals may be documented in a n alternate section FOR RECORDS PERTAINING TO PATIENTS WHO ARE OR HAVE BEEN ENROLLED IN A CHEMICAL DEPENDENCY/SUBSTANCEABUSE PROGRAM, SOME INFORMATION MAY BE OMITTED. This clinical summary was aggregated from multiple sources. Caution should be exercised in using it in the provision of clinical care. This summary normalizes information from multiple sources, and as a consequence, information in this document may materially change the coding, format and clinical context of patient data. In addition, data may be omitted in some cases. CLINICAL DECISIONS SHOULD BE BASED ON THE PRIMARY CLINICAL RECORDS. [email or web address] provides no warranty or guarantee of the accuracy or completeness of information in this document.
== END 2024-01-15 12:57 | disposition home or self-care (01) ==
LOC: EC 12:56
PROVIDERS: PCP Internal Medicine; Visit Provider Podiatrist Foot & Ankle Surgery
DX: M79.672 Pain in left foot (principal); M77.32 Calcaneal spur, left foot
CPT/HCPCS: 73630

== ENCOUNTER 2024-08-07 11:14 | Outpatient (OUT) | payer BC, SELFPAY ==
[2024-08-07 12:13] LABS: Basophils Absolute Auto 0.1 10^3/uL (0.0-0.1); Basophils Percent Auto 0.9 % (0.2-2.0); Eosinophils Absolute Auto 0.4 10^3/uL (0.0-0.7); Eosinophils Percent Auto 5.3 % (0.9-7.0); Hematocrit 43.6 % (42.0-54.0); Hemoglobin 14.9 g/dL (14.0-18.0); Immature Granulocytes Abs Auto 0.02 10^3/uL (0.00-0.03); Immature Granulocytes Pct Auto 0.3 % (0.0-0.5); Lymphocytes Absolute Auto 1.8 10^3/uL (1.2-3.8); Lymphocytes Percent Auto 26.7 % (20.5-60.0); Mean Corpuscular HGB Conc 34.2 g/dL (29.9-35.2); Mean Corpuscular Hemoglobin 32.3 pg (25.9-34.0); Mean Corpuscular Volume 94.6 fL (80.0-94.0); Mean Platelet Volume 10.3 fL (9.5-13.5); Monocytes Absolute Auto 0.6 10^3/uL (0.3-0.8); Monocytes Percent Auto 9.1 % (1.7-12.0); Neutrophils Absolute Auto 3.9 10^3/uL (1.4-6.5); Neutrophils Percent Auto 57.7 % (43.0-75.0); Platelet Count 277 10^3/uL (150-450); Red Blood Count 4.61 10^6/uL (4.70-6.10); Red Cell Distribution Width 11.2 % (11.0-15.0); White Blood Count 6.8 10^3/uL (4.0-11.0)
[2024-08-07 12:45] LABS: Alanine Aminotransferase 24 U/L (16-63); Albumin Globulin Ratio 1.3; Albumin Level 3.9 g/dL (3.4-5.0); Alkaline Phosphatase 55 U/L (46-116); Anion Gap 13.4; Aspartate Amino Transferase 18 U/L (15-37); BUN Creatinine Ratio 6.6; Bilirubin Total 0.8 mg/dL (0.2-1.0); Chloride 103 mmol/L (98-107); Cholesterol 171 mg/dL (<=200); Estimated GFR (African America >60 (>=60 mL/min/1.73m^2); Estimated GFR (Non-African Ame >60 (>=60 mL/min/1.73m^2); Globulin 3.1 g/dL; Glucose 95 mg/dL (74-106); HDL Cholesterol 57 mg/dL (40-60); LDL Cholesterol Calculated 106.6 mg/dL; Potassium 4.4 mmol/L (3.5-5.1); Sodium 137 mmol/L (136-145); Triglycerides 37 mg/dL (<=150); VLDL CHOLESTEROL 7.4 mg/dL
== END 2024-08-07 11:15 | disposition home or self-care (01) ==
LOC: LAB 11:14
PROVIDERS: PCP Internal Medicine; Visit Provider Internal Medicine
DX: Z00.00 Encounter for general adult medical examination without abnormal findings (principal); Z12.5 Encounter for screening for malignant neoplasm of prostate
CPT/HCPCS: 36415; 80053; 80061; 85025; G0103

== ENCOUNTER 2024-09-14 08:55 | Outpatient (OUT) | payer BC, SELFPAY ==
--- NOTE | 2024-09-14 09:00 | CA_ITS ---
Patient Name: REJI PINON MR#: [id number] : 1960 Exam Date: 09/14/2024 Ordering Doctor: DR HAYLEY PIERRE D.O. ECHOCARDIOGRAM REPORT PROCEDURE: CA ECHO DOPPLER COMPLETE INDICATIONS: Bicuspid aortic valve, Ascending aorta aneurysm, hypertension COMPARISON: None. DESCRIPTION: COMPLETE ECHOCARDIOGRAM Real-time transthoracic echocardiography with 2D, M-mode, spectral and color flow Doppler performed. QUALITY: Technical quality was good. LEFT VENTRICLE: Normal chamber size. Proximal septal hypertrophy (sigmoid septum). Mild concentric hypertrophy. Systolic function is normal. LV EF: Calculated left ventricular ejection fraction is 67%. Normal left ventricular ejection fraction, (>55%). DIASTOLIC: Diastolic function is indeterminate. ATRIAL SEPTUM: Visually appears intact. LEFT ATRIUM: Normal chamber size. RIGHT ATRIUM: Moderate dilatation. RIGHT VENTRICLE: Mild dilatation. Normal right ventricular systolic function. TRICUSPID VALVE: Normal mobility and thickness. No stenosis with mild regurgitation. Doppler studies reveal moderately (45-60) elevated right sided pressures. RVSP 50 mmHg MITRAL VALVE: Normal mobility and thickness. No evidence of mitral valve stenosis. There is no mitral annular calcification. No mitral regurgitation. AORTIC VALVE: Bicuspid aortic valve (Janiya type I with fusion of right and left leaflet). No aortic regurgitation. Mild aortic valve stenosis. Aortic valve area 1.8 cm?, DVI 0.45. Peak velocity 2.1 m/s. AORTIC ROOT: Aortic root is mildly dilated (4.3 cm). Ascending aorta is moderately dilated (4.8 cm). PULMONIC VALVE: Normal thickness and mobility. No stenosis. Trivial regurgitation. PERICARDIUM: No evidence of pericardial effusion. IVC: Collapses with inspirations. IVC is normal in size. PLEURA: CONCLUSION: 1. Mild concentric left ventricular hypertrophy with normal systolic function. Estimated LVEF is 65 to 70%. 2. Mildly dilated right ventricle with normal systolic function. 3. Moderate right atrial dilatation. 4. Bicuspid aortic valve with mild stenosis and no regurgitation. 5. Mild tricuspid regurgitation. 6. Moderately elevated right-sided pressures, RVSP is 50 mmHg. 7. Mildly dilated aortic root [4.3 cm], and moderately dilated ascending aorta [4.8 cm]. Adult Echocardiography Procedure Report Left Ventricle LVEDD (3.7 - 5.6 cm): 4.41 cm LVESD (2.2 - 4.0 cm): 3.69 cm LVIVS thickness (0.6 - 1.2 cm): 1.36 cm LVPW thickness (0.5 - 1.0 cm): 1.06 cm e': 0.09 m/s E - e': 7.29 LVOT Max Gradient: 3.61 mm[Hg] LVOT Area (cm2): 0.95 m/s Peak Velocity (LVOT): 0.95 m/s Mean Velocity (LVOT): 0.64 m/s LVOT Diameter 2.25 cm Left Atrium LA Volume Index (2D A2C): 19.84 ml/m2 Left Atrium Systolic Dimension: 3.73 cm Mitral Valve MV E to A Ratio: 0.86 Mitral Valve A-Wave Peak Velocity: 0.78 m/s Mitral Valve E-Wave Peak Velocity: 0.68 m/s Right Ventricle Aorta AO Root Diam: 4.27 cm Ascending Ao Diam: 4.59 cm Aortic Valve AoV Area (Peak Ty): 2.12 cm2, 2.19 cm2 AoV Area (VTI): 2.23 cm2, 2.23 cm2 Peak Velocity(Antegrade Flow): 2.00 m/s, 1.95 m/s, 2.06 m/s Peak Gradient(Antegrade Flow): 15.94 mm[Hg], 15.28 mm[Hg], 17.00 mm[Hg] Mean Velocity(Antegrade Flow): 1.45 m/s, 1.33 m/s, 1.31 m/s Mean Gradient(Antegrade Flow): 9.56 mm[Hg], 8.54 mm[Hg], 8.12 mm[Hg] Velocity Time Integral: 47.19 cm, 45.63 cm, 44.47 cm Tricuspid Valve Peak Velocity (Regurgitant Flow): 3.44 m/s Pulmonic Valve Peak Gradient: 4.33 mm[Hg], 4.11 mm[Hg] Right Atrium Right Atrium Systolic Pressure: 77.51 ml, 77.51 ml Dictated by: Sal Cruz M.D. on 09/14/2024 at 13:00 Approved by: Sal Cruz M.D. on 09/14/2024 at 13:10
--- OUTSIDE RECORDS SUMMARY | 2024-09-14 09:10 | XMS_ITS | CCD ---
Author Organization [facility] [employer] Care Team Providers Care Conference Translator Name Role Phone GO CHAVES Attending Unavailable CHAVES, GO Admitting Unavailable PROVIDER, UNKNOWN Admitting Unavailable PROVIDER, UNKNOWN Attending Unavailable PROVIDER, UNKNOWN Admitting Unavailable PROVIDER, UNKNOWN Attending Unavailable PROVIDER, UNKNOWN Admitting Unavailable PROVIDER, UNKNOWN Attending Unavailable STEVIE MADSEN Primary Care Physician [phone] Cale, Stevie Unavailable CALE, DR HARDY Admitting Unavailable CALE, DR HARDY Attending Unavailable CALE, DR HARDY Primary Care Unavailable CALE, DR HARDY Consulting Unavailable ZIEBER, DR OCTAVIO Hill Consulting Unavailable LOYD ., DR GERMAIN Admitting Unavailable LOYD ., DR GERMAIN Attending Unavailable BALL, DR HARDY Primary Care Unavailable LOYD ., DR GEMRAIN Consulting Unavailable LOYD ., DR GERMAIN Admitting [...] Unavailable BALL, DR HARDY Primary Care Unavailable BALL, DR HARDY Consulting Unavailable GURDEEPJenna HESS Attending Unavailable Allergies Allergy Classification Reported Allergen(s) Allergy Type Date of Onset Reaction(s) Facility (1 source) No Known Medication Allergies; Translations: [No Known Medication Allergies] Propensity to adverse reactions (disorder) [facility] Repository Medications Current Medications Medication Drug Class(es) Dates Sig (Normalized) Sig (Original) amLODIPine 5 mg oral tablet (7 sources) Dihydropyridine Calcium Channel Moe Start: 02-14-2024 take 1 tablet by mouth once daily Amlodipine 5 mg tablet Active 0 .ROUTE .COMPLEX 90 February 14, 2024 4:11pm TAKE 1 TABLET BY MOUTH EVERY DAY FOR 90 DAYS Start: 08-12-2023 End: 02-14-2024 take 1 tablet by mouth once daily Amlodipine 5 mg tablet Discontinued 5 MG PO Daily August 12, 2023 12:00am February 14, 2024 4:11pm Start: 01-23-2023 take 1 tablet by ben th every twenty-four hours amLODIPine Besylate 5 MG 1 tablet Orally Once a day for 30 days Jan, Active carvedilol 25 mg oral tablet (10 sources) alpha-Adrenergic Moe, beta-Adrenergic Moe Start: 03-26-2024 End: 08-14-2024 take 1 tablet by mouth twice daily at mealtime Carvedilol 25 mg tablet Active 0 .ROUTE .COMPLEX 180 August 14, 2024 3:03pm TAKE 1 TABLET BY MOUTH TWICE A DAY WITH FOOD Start: 08-12-2023 End: 03-26-2024 take 1 tablet by mouth twice daily Carvedilol 25 mg tablet Discontinued 25 MG PO Twice daily August 12, 2023 12:00am March 26, 2024 10:45am Start: 12-10-2022 take 1 tablet by ben [...] 30 DAYS Orally Twice a day Active Ibuprofen (2 sources) Nonsteroidal Anti-inflammatory Drug Start: 09-04-2021 ibuprofen PRN as needed for pain, Refills(s) 0 Start Date: 09/04/21 Status: Ordered Completed/Discontinued Medications Medication Drug Class(es) Dates Sig (Normalized) Sig (Original) escitalopram 10 mg oral tablet (4 sources) Serotonin Reuptake Inhibitor Start: 08-12-2023 End: 02-14-2024 take 1 tablet by mouth once daily Escitalopram Oxalate 10 mg tablet Discontinued 10 MG PO Daily August 12, 2023 12:00am February 14, 2024 2:41pm Start: 03-29-2023 take 1 tablet by ben th once daily at bedtime Escitalopram Oxalate 10 MG 1 tablet Orally Once a day before bedtime for 30 days Mar, Active tiZANidine 4 mg oral tablet (15 sources) Central alpha-2 Adrenergic Agonist Start: 08-12-2023 End: 08-14-2024 take 1 tablet by mouth three times daily as needed Tizanidine 4 mg tablet Discontinued 4 MG PO Three times daily as needed August 12, 2023 12:00am August 14, 2024 2:39pm Start: 07-31-2021 take 1 tablet by ben th at bedtime tiZANidine 4 mg Tab 4 mg = 1 tab(s), Oral, Bedtime, Refills(s) 0 Start Date: 07/31/21 Status: Ordered Problems Active Problems Problem Classification Problem Date Documented Da te Episodic/Chronic Acute cerebrovascular disease (5 sources) Subarachnoid hemorrhage; Translations: [Nontraumatic subarachnoid hemorrhage, unspecified] Onset: 02-13-2021 Chronic Cardiac and circulatory congenital anomalies (16 sources) Bicuspid aortic valve; Translations: [Congenital insufficiency of aortic valve] Chronic Essential hypertension (16 sources) Essential (primary) hypertension; Translations: [Essential hypertension] Onset: 09-20-2021 Chronic Hyperplasia of prostate (16 sources) Nocturia due to benign prostatic hypertrophy; Translations: [Benign prostatic hyperplasia with lower urinary tract symptoms] Chronic Intracranial injury (5 sources) History of traumatic brain injury; Translations: [Personal history of traumatic brain injury] Episodic Malaise and fatigue (1 source) Other fatigue Episodic Mood disorders (8 sources) Recurrent major depressive episodes, mild ; [...] reading, without diagnosis of hypertension Episodic Other connective tissue disease (1 source) Plantar fasciitis of left foot; Translations: [Plantar fascial fibromatosis] 02-14-2024 Episodic Other female genital disorders (3 sources) [...] Episodic Other nutritional; endocrine; and metabolic disorders (1 source) Obesity; Translations: [Obesity, unspecified] 02-14-2024 Chronic Other nutritional; endocrine; and metabolic disorders (1 source) Obesity, unspecified; Translations: [Obesity, unspecified] 08-14-2024 Chronic Other nutritional; endocrine; and metabolic disorders (3 sources) Body mass index 25-29 - overweight 08-18-2021 Episodic Other nutritional; endocrine; and metabolic disorders (5 sources) Overweight; Translations: [Overweight] Episodic Other nutritional; endocrine; and metabolic disorders (2 sources) Overweight; Translations: [Overweight] Episodic Other screening for suspected conditions (not mental disorders or infectious disease) (9 sources) Encounter for screening for malignant neoplasm of prostate; Translations: [Encounter for screening for malignant neoplasm of colon] Onset: 09-20-2021 Episodic Comment on above: PSA: 0.9 - 07/2024 Residual codes; unclassified (2 sources) Chews tobacco [...] Range Facility Basophils Auto (Bld) [#/Vol] on 08-07-2024 Basophils (Bld) [#/Vol] Automated basophil count 0.0-0.1 [facility] Basophils/100 WBC Auto (Bld) on 08-07-2024 Basophils/100 WBC (Bld) Automated basophil % 0.2-2.0 [facility] Cholesterol in LDL Calc [Mas s/Vol]on 08-07-2024 Cholesterol in LDL [Mass/Vol] Cholesterol in LDL [Mass/volume] in Serum or Plasma by calculation [facility] Comment on above: <100 mg/dl [id number] 0-129 mg/dl NEAR OR ABOVE [id number] mg/dl BORDERLINE [id number] mg/dl HIGH>190 mg/dl VERY HIGH Cholesterol in VLDL Calc [Ma ss/Vol]on 08-07-2024 Cholesterol in VLDL [Mass/Vol] Cholesterol in VLDL [Mass/volume] in Serum or Plasma by calculation [facility] Eosinophils/100 WBC Auto (Bl d)on 08-07-2024 Eosinophils/100 WBC (Bld) Automated eosinophil % 0.9-7.0 [facility] Erythrocyte distribution wid th Auto (RBC) [Ratio]on 08-07-2024 Erythrocyte distribution width (RBC) [Ratio] Erythrocyte distribution width [Ratio] by Automated count 11.0-15.0 [facility] Estimated glomerular filtrat ion rate (GFR) non- Americanon 08-07-2024 GFR/1.73 sq M.predicted among non-blacks MDRD (S/P/Bld) [Vol rate/Area] Estimated glomerular filtration rate (GFR) non- >=60 mL/min/1.73m 2 [facility] Globulin Calc (S) [Mass/Vol] on 08-07-2024 Globulin (S) [Mass/Vol] Serum globulin measurement by calculation (mass/volume) [facility] Hematocrit Auto (Bld) [Volum e fraction]on 08-07-2024 Hematocrit (Bld) [Volume fraction] Hematocrit [Volume Fraction] of Blood by Automated count 42.0-54.0 [facility] Hemoglobin [Mass/volume] in Bloodon 08-07-2024 Hemoglobin (Bld) [Mass/Vol] Hemoglobin [Mass/volume] in Blood 14.0-18.0 [facility] Laboratory - Chemistry and C hemistry - challengeon 08-07-2024 Albumin [Mass/Vol] 3.9 g/dL 3.4-5.0 [facility] ALP [Catalytic activity/Vol] 55 U/L 46-116 [facility] ALT [Catalytic activity/Vol] 24 U/L 16-63 [facility] AST [Catalytic activity/Vol] 18 U/L 15-37 [facility] Bilirubin [Mass/Vol] 0.8 mg/dL 0.2-1.0 [facility] Calcium [Mass/Vol] 9.0 mg/dL 8.5-10.1 [facility] Chloride [Moles/Vol] 103 mmol/L 98-107 [facility] Cholesterol [Mass/Vol] 171 mg/dL <=200 [facility] Cholesterol in HDL [Mass/Vol] 57 mg/dL 40-60 [facility] Comment on above: > or =60 mg/dl - LOW CARDIOVASCULAR RISK<40 mg/dl - HIGH CARDIOVASCULAR RISK CO2 [Moles/Vol] 25.0 mmol/L 21.0-32.0 [facility] Creatinine [Mass/Vol] 1.06 mg/dL 0.70-1.30 [facility] GFR/1.73 sq M.predicted MDRD (S/P/Bld) [Vol rate/Area] mL/min/{1.73_m2} >=60 mL/min/1.73m 2 [facility] Glucose [Mass/Vol] 95 mg/dL 74-106 [facility] Potassium [Moles/Vol] 4.4 mmol/L 3.5-5.1 [facility] Protein [Mass/Vol] 7.0 g/dL 6.4-8.2 [facility] Sodium [Moles/Vol] 137 mmol/L 136-145 [facility] Triglyceride [Mass/Vol] 37 mg/dL <=150 [facility] Urea nitrogen [Mass/Vol] 7.0 mg/dL 7.0-18.0 [facility] Urea nitrogen/Creatinine [Mass ratio] 6.6 mg/mg [facility] Laboratory - Hematology and Cell countson 08-07-2024 Immature granulocytes/100 WBC (Bld) 0.3 % 0.0-0.5 [facility] Leukocytes [#/volume] correc karyna for nucleated erythrocytes in Blood by Automated counon 08-07-2024 WBC corrected for nucl RBC Auto (Bld) [#/Vol] Leukocytes [#/volume] corrected for nucleated erythrocytes in Blood by Automated coun 4.0-11.0 [facility] Lymphocytes Auto (Bld) [#/Vo l]on 08-07-2024 Lymphocytes (Bld) [#/Vol] Lymphocytes [#/volume] in Blood by Automated count 1.2-3.8 [facility] Lymphocytes/100 WBC Auto (Bl d)on 08-07-2024 Lymphocytes/100 WBC (Bld) Lymphocytes/100 leukocytes in Blood by Automated count 20.5-60.0 [facility] MCH Auto (RBC) [Entitic mass ]on 08-07-2024 MCH (RBC) [Entitic mass] MCH [Entitic mass] by Automated count 25.9-34.0 [facility] MCHC Auto (RBC) [Mass/Vol]on 08-07-2024 MCHC (RBC) [Mass/Vol] MCHC [Mass/volume] by Automated count 29.9-35.2 [facility] MCV Auto (RBC) [Entitic vol] on 08-07-2024 MCV (RBC) [Entitic vol] MCV [Entitic volume] by Automated count High 80.0-94.0 [facility] Monocytes Auto (Bld) [#/Vol] on 08-07-2024 Monocytes (Bld) [#/Vol] Automated blood monocyte count 0.3-0.8 [facility] Monocytes/100 WBC Auto (Bld) on 08-07-2024 Monocytes/100 WBC (Bld) Automated monocyte % 1.7-12.0 [facility] Neutrophils Auto (Bld) [#/Vo l]on 08-07-2024 Neutrophils (Bld) [#/Vol] Neutrophils [#/volume] in Blood by Automated count 1.4-6.5 [facility] Neutrophils/100 WBC Auto (Bl d)on 08-07-2024 Neutrophils/100 WBC (Bld) Automated neutrophil % 43.0-75.0 [facility] No Panel Informationon 08-07 Eosinophils # (Auto) 0.4 10 3/uL 0.0-0.7 [facility] Immature Granulocyte # (Auto) 0.02 10 3/uL 0.00-0.03 [facility] Prostate Specific Antigen Screen 0.90 ng/mL <=4.00 [facility] Platelet mean volume Auto (B ld) [Entitic vol]on 08-07-2024 Platelet mean volume (Bld) [Entitic vol] Platelet mean volume [Entitic volume] in Blood by Automated count 9.5-13.5 [facility] Platelets Auto (Bld) [#/Vol] on 08-07-2024 Platelets (Bld) [#/Vol] Platelets [#/volume] in Blood by Automated count 150-450 [facility] RBC Auto (Bld) [#/Vol]on RBC (Bld) [#/Vol] Erythrocytes [#/volume] in Blood by Automated count Low 4.70-6.10 [facility] Serum or plasma albumin/glob ulin mass ratioon 08-07-2024 Albumin/Globulin [Mass ratio] Serum or plasma albumin/globulin mass ratio [facility] Serum or plasma anion gap de terminationon 08-07-2024 Anion gap [Moles/Vol] Serum or plasma anion gap determination [facility] Serum or plasma total choles terol/high density lipoprotein (HDL) cholesterol mass shirley 08-07-2024 Cholesterol.total/Ch olesterol in HDL [Mass ratio] Serum or plasma total cholesterol/high density lipoprotein (HDL) cholesterol mass rat [facility] Comment on above: 3.3 - 4.4 LOW RISK4. 4 - 7.1 AVERAGE RISK7.1 - 11.0 MODERATE RISK>11.0 HIGH RISK Basophils Auto (Bld) [#/Vol] on 08-07-2023 Basophils (Bld) [#/Vol] 0.1 10 3/uL 0.0-0.1 [facility] Basophils/100 WBC Auto (Bld) on 08-07-2023 Basophils/100 WBC (Bld) 1.3 % 0.2-2.0 [facility] Cholesterol in LDL Calc [Mas s/Vol]on 08-07-2023 Cholesterol in LDL [Mass/Vol] 112.4 mg/dL [facility] Comment on above: <100 mg/dl [id number] 0-129 mg/dl NEAR OR ABOVE [id number] mg/dl BORDERLINE [id number] mg/dl HIGH>190 mg/dl VERY HIGH Cholesterol in VLDL Calc [Ma ss/Vol]on 08-07-2023 Cholesterol in VLDL [Mass/Vol] 8.6 mg/dL [facility] Eosinophils/100 WBC Auto (Bl d)on 08-07-2023 Eosinophils/100 WBC (Bld) 8.1 % 0.9-7.0 [facility] Erythrocyte distribution wid th Auto (RBC) [Ratio]on 08-07-2023 Erythrocyte distribution width (RBC) [Ratio] 11.2 % 11.0-15.0 [facility] Estimated glomerular filtrat ion rate (GFR) non- Americanon 08-07-2023 GFR/1.73 sq M.predicted among non-blacks MDRD (S/P/Bld) [Vol rate/Area] mL/min/{1.73_m2} >=60 [facility] Globulin Calc (S) [Mass/Vol] on 08-07-2023 Globulin (S) [Mass/Vol] 3.3 g/dL [facility] Hematocrit Auto (Bld) [Volum e fraction]on 08-07-2023 Hematocrit (Bld) [Volume fraction] 42.8 % 42.0-54.0 [facility] Hemoglobin [Mass/volume] in Bloodon 08-07-2023 Hemoglobin (Bld) [Mass/Vol] 14.4 g/dL 14.0-18.0 [facility] Laboratory - Chemistry and C hemistry - challengeon 08-07-2023 Albumin [Mass/Vol] 3.5 g/dL 3.4-5.0 [facility] ALP [Catalytic activity/Vol] 61 U/L 46-116 [facility] ALT [Catalytic activity/Vol] 31 U/L 16-63 [facility] AST [Catalytic activity/Vol] 24 U/L 15-37 [facility] Bilirubin [Mass/Vol] 0.5 mg/dL 0.2-1.0 [facility] Calcium [Mass/Vol] 8.7 mg/dL 8.5-10.1 [facility] Chloride [Moles/Vol] 103 mmol/L 98-107 [facility] Cholesterol [Mass/Vol] 179 mg/dL <=200 [facility] Cholesterol in HDL [Mass/Vol] 58 mg/dL 40-60 [facility] Comment on above: > or =60 mg/dl - LOW CARDIOVASCULAR RISK<40 mg/dl - HIGH CARDIOVASCULAR RISK CO2 [Moles/Vol] 26.8 mmol/L 21.0-32.0 [facility] Creatinine [Mass/Vol] 0.96 mg/dL 0.70-1.30 [facility] GFR/1.73 sq M.predicted MDRD (S/P/Bld) [Vol rate/Area] mL/min/{1.73_m2} >=60 [facility] Glucose [Mass/Vol] 105 mg/dL 74-106 [facility] Potassium [Moles/Vol] 4.4 mmol/L 3.5-5.1 [facility] Protein [Mass/Vol] 6.8 g/dL 6.4-8.2 [facility] Sodium [Moles/Vol] 139 mmol/L 136-145 [facility] Triglyceride [Mass/Vol] 43 mg/dL <=150 [facility] Urea nitrogen [Mass/Vol] 13.0 mg/dL 7.0-18.0 [facility] Urea nitrogen/Creatinine [Mass ratio] 13.5 mg/mg [facility] Laboratory - Hematology and Cell countson 08-07-2023 Immature granulocytes/100 WBC (Bld) 0.2 % 0.0-0.5 [facility] Leukocytes [#/volume] correc karyna for nucleated erythrocytes in Blood by Automated counon 08-07-2023 WBC corrected for nucl RBC Auto (Bld) [#/Vol] 4.7 10 3/uL 4.0-11.0 [facility] Lymphocytes Auto (Bld) [#/Vo l]on 08-07-2023 Lymphocytes (Bld) [#/Vol] 1.6 10 3/uL 1.2-3.8 [facility] Lymphocytes/100 WBC Auto (Bl d)on 08-07-2023 Lymphocytes/100 WBC (Bld) 33.2 % 20.5-60.0 [facility] MCH Auto (RBC) [Entitic mass ]on 08-07-2023 MCH (RBC) [Entitic mass] 32.6 pg 25.9-34.0 [facility] MCHC Auto (RBC) [Mass/Vol]on 08-07-2023 MCHC (RBC) [Mass/Vol] 33.6 g/dL 29.9-35.2 [facility] MCV Auto (RBC) [Entitic vol] on 08-07-2023 MCV (RBC) [Entitic vol] 96.8 fL 80.0-94.0 [facility] Monocytes Auto (Bld) [#/Vol] on 08-07-2023 Monocytes (Bld) [#/Vol] 0.5 10 3/uL 0.3-0.8 [facility] Monocytes/100 WBC Auto (Bld) on 08-07-2023 Monocytes/100 WBC (Bld) 10.7 % 1.7-12.0 [facility] Neutrophils Auto (Bld) [#/Vo l]on 08-07-2023 Neutrophils (Bld) [#/Vol] 2.2 10 3/uL 1.4-6.5 [facility] Neutrophils/100 WBC Auto (Bl d)on 08-07-2023 Neutrophils/100 WBC (Bld) 46.5 % 43.0-75.0 [facility] No Panel Informationon 08-06 Eosinophils # (Auto) 0.4 10 3/uL 0.0-0.7 [facility] Immature Granulocyte # (Auto) 0.01 10 3/uL 0.00-0.03 [facility] Prostate Specific Antigen Screen 0.58 ng/mL <=4.00 [facility] Platelet mean volume Auto (B ld) [Entitic vol]on 08-07-2023 Platelet mean volume (Bld) [Entitic vol] 10.4 fL 9.5-13.5 [facility] Platelets Auto (Bld) [#/Vol] on 08-07-2023 Platelets (Bld) [#/Vol] 194 10 3/uL 150-450 [facility] RBC Auto (Bld) [#/Vol]on RBC (Bld) [#/Vol] 4.42 10 6/uL 4.70-6.10 [facility] Serum or plasma albumin/glob ulin mass ratioon 08-07-2023 Albumin/Globulin [Mass ratio] 1.1 {ratio} [facility] Serum or plasma anion gap de terminationon 08-07-2023 Anion gap [Moles/Vol] 13.6 mmol/L [facility] Serum or plasma total choles terol/high density lipoprotein (HDL) cholesterol mass shirley 08-07-2023 Cholesterol.total/Ch olesterol in HDL [Mass ratio] 3.1 {ratio} [facility] Comment on above: 3.3 - 4.4 LOW RISK4. 4 - 7.1 AVERAGE RISK7.1 - 11.0 MODERATE RISK>11.0 HIGH RISK Registrationon 04-01-2023 Registration [id number] #1.00TIFF Normal [facility] In office Testingon 03-28-20 23 In office Testing [id number]# 1.00TIFF Normal [facility] Registrationon 03-28-2023 Registration [id number] #1.00TIFF Normal [facility] US CAROTID ART BILon 023 US [...] by: MARGARITA VIERA Date: 2022-08-25 08:20 Normal [facility] ECHOCARDIO M/2D COMPLETEon 0 08-24-2022 ECHOCARDIO M/2D COMPLETE Patient: REJI PINON Exam Date: 08/24/2022 : 1960 Gender:M Ordering : DR STEVIE MADSEN D.O. Admission #: [id number] Family : Order #: [id number] CLICK HERE TO VIEW EXAM ECHOCARDIOGRAM REPORT [...] Cruz M.D. on 08/24/2022 at 19:28 Normal [facility] CBC AUTO DIFFon 08-03-2022 BASO # 0.1 103/ul Normal 0.0-0.1 [facility] Comment on above: Performed By: #### C BC #### [facility] [address] [address] [address] Christiano William Basophils/100 WBC (Bld) 1.2 % Normal 0.2-2.0 [facility] Comment on above: Performed By: #### C BC #### [facility] [address] [place] [address] Dr. Christiano William EO # 0.3 103/ul Normal 0.0-0.7 [facility] Comment on above: Performed By: #### C BC #### [facility] [address] [place] [address] Dr. Christiano William Eosinophils/100 WBC (Bld) 6.6 % Normal 0.9-7.0 [facility] Comment on above: Performed By: #### C BC #### [facility] [address] [place] [address] Dr. Christiano William Erythrocyte distribution width (RBC) [Ratio] 11.3 % Normal 11.0-15.0 [facility] Comment on above: Performed By: #### C BC #### [facility] [address] [place] [address] Dr. Christiano William Hematocrit (Bld) [Volume fraction] 44.2 % Normal 42.0-54.0 [facility] Comment on above: Performed By: #### C BC #### [facility] [address] [place] [address] Dr. Christiano William Hemoglobin (Bld) [Mass/Vol] 15.4 g/dL Normal 14.0-18.0 [facility] Comment on above: Performed By: #### C BC #### [facility] [address] [place] [address] Dr. Christiano William IG # 0.01 10e3/ul Normal 0.00-0.03 [facility] Comment on above: Performed By: #### C BC #### [facility] [address] [place] [address] Dr. Christiano William IG % 0.2 % Normal 0.0-0.5 [facility] Comment on above: Performed By: #### C BC #### [facility] [address] [place] [address] Dr. Christiano William LYMPH # 1.5 103/ul Normal 1.2-3.8 [facility] Comment on above: Performed By: #### C BC #### [facility] [address] [place] [address] Dr. Christiano William Lymphocytes/100 WBC (Bld) 35.4 % Normal 20.5-60.0 [facility] Comment on above: Performed By: #### C BC #### [facility] [address] [place] [address] Dr. Christiano William MANUAL DIFF REQ NO Normal [facility] Comment on above: Performed By: #### C BC #### [facility] [address] [place] [address] Dr. Christiano William MCH (RBC) [Entitic mass] 33.0 pg Normal 25.9-34.0 [facility] Comment on above: Performed By: #### C BC #### [facility] [address] [place] [address] Dr. Christiano William MCHC (RBC) [Mass/Vol] 34.8 g/dL Normal 29.9-35.2 [facility] Comment on above: Performed By: #### C BC #### [facility] [address] [place] [address] Dr. Christiano William MCV (RBC) [Entitic vol] 94.6 fL Critically high 80.0-94.0 [facility] Comment on above: Performed By: #### C BC #### [facility] [address] [place] [address] Dr. Christiano William MONO # 0.5 103/ul Normal 0.3-0.8 [facility] Comment on above: Performed By: #### C BC #### [facility] [address] [place] [address] Dr. Christiano William Monocytes/100 WBC (Bld) 11.2 % Normal 1.7-12.0 [facility] Comment on above: Performed By: #### C BC #### [facility] [address] [place] [address] Dr. Christiano William NEUT # 1.9 103/ul Normal 1.4-6.5 [facility] Comment on above: Performed By: #### C BC #### [facility] [address] [address] [address] Christiano William Neutrophils/100 WBC (Bld) 45.4 % Normal 43.0-75.0 [facility] Comment on above: Performed By: #### C BC #### [facility] [address] [address] [address] Christiano William Platelet mean volume (Bld) [Entitic vol] 10.0 fL Normal 9.5-13.5 [facility] Comment on above: Performed By: #### C BC #### [facility] [address] [address] [address] Christiano William PLT 222 103/ul Normal 150-450 [facility] Comment on above: Performed By: #### C BC #### [facility] [address] [place] [address] Dr. Christiano William RBC 4.67 106/ul Critically low 4.70-6.10 [facility] Comment on above: Performed By: #### C BC #### [facility] [address] [address] [address] Christiano William WBC 4.1 103/ul Normal 4.0-11.0 [facility] Comment on above: Performed By: #### C BC #### [facility] [address] [place] [address] Dr. Christiano William LIPID PROFILEon 08-03-2022 CHOL-HDL RATIO NORM SEE BELOW Normal [facility] Comment on above: Result Comment: 3.3 - 4.4 LOW RISK 4.4 - 7.1 AVERAGE RISK 7.1 - 11.0 MODERATE RISK >11.0 HIGH RISK Performed By: #### L IPID, CMP #### [facility] [address] [address] [address] Christiano William Cholesterol [Mass/Vol] 177 mg/dL Normal <=200 [facility] Comment on above: Performed By: #### L IPID, CMP #### [facility] [address] [address] [address] Christiano William Cholesterol in HDL [Mass/Vol] 63 mg/dL Critically high 40-60 [facility] Comment on above: Performed By: #### L IPID, CMP #### [facility] [address] [address] [address] Christiano William Cholesterol in LDL [Mass/Vol] 106.8 mg/dL Normal [facility] Comment on above: Performed By: #### L IPID, CMP #### [facility] [address] [address] [address] Christiano William Cholesterol.total/Ch olesterol in HDL [Mass ratio] 2.8 {ratio} Normal [facility] Comment on above: Performed By: #### L IPID, CMP #### [facility] [address] [address] [address] Christiano William HDL NORMAL > or = 60 mg/dl - LO W CARDIOVASCULAR RISK <40 mg/dl - HIGH CARDIOVASCULAR RISK Normal [facility] Comment on above: Performed By: #### L IPID, CMP #### [facility] [address] [address] [address] Christiano William LDL CALC NORMAL SEE BELOW Normal [facility] Comment on above: Result Comment: <100 mg/dl OPTIMAL 100 - 129 mg/dl NEAR OR ABOVE OPTIMAL 130 - 159 mg/dl BORDERLINE HIGH 160 - 189 mg/dl HIGH >190 mg/dl VERY HIGH Performed By: #### L IPID, CMP #### [facility] [address] [place] [address] Dr. Christiano William Triglyceride [Mass/Vol] 36 mg/dL Normal <=150 [facility] Comment on above: Performed By: #### L IPID, CMP #### [facility] [address] [place] [address] Dr. Christiano William VLDL CALC 7.2 mg/dL Normal [facility] Comment on above: Performed By: #### L IPID, CMP #### [facility] [address] [place] [address] Dr. Christiano William PROF 14(COMP METB)on 023 Albumin [Mass/Vol] 3.7 g/dL Normal 3.4-5.[address] [facility] Comment on above: Performed By: #### L IPID, CMP ####[facility] [address] [id number]. Christiano William Albumin/Globulin [Mass ratio] 1.1 {ratio} Normal [facility] Comment on above: Performed By: #### L IPID, CMP ####[facility] [address] [address]Dr. Christiano William ALP [Catalytic activity/Vol] 53 U/L Normal 46-116 [facility] Comment on above: Performed By: #### L IPID, CMP ####[facility] [address] [address]Dr. Christiano William ALT [Catalytic activity/Vol] 28 U/L Normal 16-63 [facility] Comment on above: Performed By: #### L IPID, CMP ####[facility] [address] [address]Dr. Christiano William Anion gap [Moles/Vol] 12.8 mmol/L Normal [facility] Comment on above: Performed By: #### L IPID, CMP ####[facility] [address] [address]Dr. Christiano William AST [Catalytic activity/Vol] 22 U/L Normal 15-37 [facility] Comment on above: Performed By: #### L IPID, CMP ####[facility] [address] [address]Dr. Christiano William Bilirubin [Mass/Vol] 0.5 mg/dL Normal 0.2-1.0 [facility] Comment on above: Performed By: #### L IPID, CMP ####[facility] [address] [id number]. Christiano William Calcium [Mass/Vol] 8.7 mg/dL Normal 8.5-10.1 [facility] Comment on above: Performed By: #### L IPID, CMP ####[facility] [address] [address]Dr. Christiano William Chloride [Moles/Vol] 103 mmol/L Normal 98-107 [facility] Comment on above: Performed By: #### L IPID, CMP ####[facility] [address] [id number]. Christiano William CO2 [Moles/Vol] 26.7 mmol/L Normal 21.0-32.0 [facility] Comment on above: Performed By: #### L IPID, CMP ####[facility] [address] [id number]. Christiano Stewart Creatinine [Mass/Vol] 1.02 mg/dL Normal 0.70-1.30 [facility] Comment on above: Performed By: #### L IPID, CMP ####[facility] [address] [address]Dr. Christiano William EGFR-AF [place] >60 Normal >=60 [facility] Comment on above: Performed By: #### L IPID, CMP ####[facility] [address] [address]Dr. Christiano Stewart EGFR-NON AF [place] >60 Normal >=60 [facility] Comment on above: Performed By: #### L IPID, CMP ####[facility] [address] [address]Dr. Christiano Stewart Globulin (S) [Mass/Vol] 3.5 g/dL Normal [facility] Comment on above: Performed By: #### L IPID, CMP ####[facility] [address] [id number]. Christiano Stewart Glucose [Mass/Vol] 110 mg/dL Critically high 74-106 [facility] Comment on above: Performed By: #### L IPID, CMP ####[facility] [address] [id number]. Christiano William Potassium [Moles/Vol] 4.5 mmol/L Normal 3.5-5.1 [facility] Comment on above: Performed By: #### L IPID, CMP ####[facility] [address] [id number]. Christiano Stewart Protein [Mass/Vol] 7.2 g/dL Normal 6.4-8.[address] [facility] Comment on above: Performed By: #### L IPID, CMP ####[facility] [address] [address] William Sodium [Moles/Vol] 138 mmol/L Normal 136-[address] [facility] Comment on above: Performed By: #### L IPID, CMP ####[facility] [address] [address]Dr. Christiano William Urea nitrogen [Mass/Vol] 9.0 mg/dL Normal 7.0-18.0 [facility] Comment on above: Performed By: #### L IPID, CMP ####[facility] [address] [address]Dr. Christiano William Urea nitrogen/Creatinine [Mass ratio] 8.8 mg/mg Normal [facility] Comment on above: Performed By: #### L IPID, CMP ####[facility] [address] [place], [place] [address]Dr[place] Willaim In office Testingon 07-05-19 23 In office Testing [id number]:[id number] Normal [facility] CBC AUTO DIFFon 09-13-2021 BASO # 0.1 103/ul Normal 0.0-0.1 [facility] Comment on above: Performed By: #### C BC #### [facility] [address] [place] [address] Dr. Christiano William Basophils/100 WBC (Bld) 1.2 % Normal 0.2-2.0 [facility] Comment on above: Performed By: #### C BC #### [facility] [address] [place] [address] Dr. Christiano William EO # 0.1 103/ul Normal 0.0-0.7 [facility] Comment on above: Performed By: #### C BC #### [facility] [address] [place] [address] Dr. Christiano William Eosinophils/100 WBC (Bld) 2.6 % Normal 0.9-7.0 [facility] Comment on above: Performed By: #### C BC #### [facility] [address] [place] [address] Dr. Christiano William Erythrocyte distribution width (RBC) [Ratio] 12.3 % Normal 11.0-15.0 [facility] Comment on above: Performed By: #### C BC #### [facility] [address] [place] [address] Dr. Christiano William Hematocrit (Bld) [Volume fraction] 40.7 % Critically low 42.0-54.0 [facility] Comment on above: Performed By: #### C BC #### [facility] [address] [place] [address] Dr. Christiano William Hemoglobin (Bld) [Mass/Vol] 14.1 g/dL Normal 14.0-18.0 [facility] Comment on above: Performed By: #### C BC #### [facility] [address] [place] [address] Dr. Christiano William IG # 0.01 10e3/ul Normal 0.00-0.03 [facility] Comment on above: Performed By: #### C BC #### [facility] [address] [place] [address] Dr. Christiano William IG % 0.2 % Normal 0.0-0.5 [facility] Comment on above: Performed By: #### C BC #### [facility] [address] [place] [address] Dr. Christiano William LYMPH # 1.0 103/ul Critically low 1.2-3.8 [facility] Comment on above: Performed By: #### C BC #### [facility] [address] [place] [address] Dr. Christiano William Lymphocytes/100 WBC (Bld) 24.4 % Normal 20.5-60.0 [facility] Comment on above: Performed By: #### C BC #### [facility] [address] [place] [address] Dr. Christiano William MANUAL DIFF REQ NO Normal [facility] Comment on above: Performed By: #### C BC #### [facility] [address] [address] [address] Christiano William MCH (RBC) [Entitic mass] 33.7 pg Normal 25.9-34.0 [facility] Comment on above: Performed By: #### C BC #### [facility] [address] [address] [address] Christiano William MCHC (RBC) [Mass/Vol] 34.6 g/dL Normal 29.9-35.2 [facility] Comment on above: Performed By: #### C BC #### [facility] [address] [address] [address] Christiano William MCV (RBC) [Entitic vol] 97.4 fL Critically high 80.0-94.0 [facility] Comment on above: Performed By: #### C BC #### [facility] [address] [place] [address] Dr. Christiano William MONO # 0.5 103/ul Normal 0.3-0.8 [facility] Comment on above: Performed By: #### C BC #### [facility] [address] [place] [address] Dr. Christiano William Monocytes/100 WBC (Bld) 10.5 % Normal 1.7-12.0 [facility] Comment on above: Performed By: #### C BC #### [facility] [address] [address] [address] Christiano William NEUT # 2.6 103/ul Normal 1.4-6.5 [facility] Comment on above: Performed By: #### C BC #### [facility] [address] [place] [address] Dr. Christiano William Neutrophils/100 WBC (Bld) 61.1 % Normal 43.0-75.0 [facility] Comment on above: Performed By: #### C BC #### [facility] [address] [place] [address] Dr. Christiano William Platelet mean volume (Bld) [Entitic vol] 9.9 fL Normal 9.5-13.5 [facility] Comment on above: Performed By: #### C BC #### [facility] [address] [address] [address] Christiano William PLT 241 103/ul Normal 150-450 [facility] Comment on above: Performed By: #### C BC #### [facility] [address] [address] [address] Christiano William RBC 4.18 106/ul Critically low 4.70-6.10 [facility] Comment on above: Performed By: #### C BC #### [facility] [address] [address] [address] Christiano William WBC 4.3 103/ul Normal 4.0-11.0 [facility] Comment on above: Performed By: #### C BC #### [facility] [address] [address] [address] Christiano William PROF CHEM 8 (BAS METB)on Anion gap [Moles/Vol] 16.5 mmol/L Normal [facility] Comment on above: Performed By: #### B MP ####[facility] [address] [address] William Calcium [Mass/Vol] 9.1 mg/dL Normal 8.5-10.[address] [facility] Comment on above: Performed By: #### B MP ####[facility] [address] [address]Dr[place] William Chloride [Moles/Vol] 104 mmol/L Normal 98-107 [facility] Comment on above: Performed By: #### B MP ####[facility] [address] [address]Dr[place] William CO2 [Moles/Vol] 22.3 mmol/L Normal 21.0-32.0 [facility] Comment on above: Performed By: #### B MP ####[facility] [address] [address]Dr[place] William Creatinine [Mass/Vol] 0.97 mg/dL Normal 0.70-1.30 [facility] Comment on above: Performed By: #### B MP ####[facility] [address] [address]Dr. Christiano William EGFR-AF [place] >60 Normal >=60 [facility] Comment on above: Performed By: #### B MP ####[facility] [address] [address]Dr. Christiano William EGFR-NON AF [place] >60 Normal >=60 [facility] Comment on above: Performed By: #### B MP ####[facility] [address] [address]Dr. Christiano William Glucose [Mass/Vol] 100 mg/dL Normal 74-[address] [facility] Comment on above: Performed By: #### B MP ####[facility] [address] [place], [place] [address]Dr. Christiano William Potassium [Moles/Vol] 4.8 mmol/L Normal 3.5-5.1 [facility] Comment on above: Performed By: #### B MP ####[facility] [address] [place], [place] [address]Dr. Christiano Stewart Sodium [Moles/Vol] 138 mmol/L Normal 136-145 [facility] Comment on above: Performed By: #### B MP ####[facility] [address] [place], [place] [address]Dr. Sravanthisheldon Stewart Urea nitrogen [Mass/Vol] 8.0 mg/dL Normal 7.0-18.0 [facility] Comment on above: Performed By: #### B MP ####[facility] [address] [place], [place] [address]Dr. Sravanthisheldon Stewart Urea nitrogen/Creatinine [Mass ratio] 8.2 mg/mg Normal [facility] Comment on above: Performed By: #### B MP ####[facility] [address] [place], [place] [address]Dr. Sravanthisheldon Stewart PROTIMEon 09-13-2021 INR Coag (PPP) [Relative time] 0.97 {INR} Normal [facility] Comment on above: Performed By: #### P T, PTT #### [facility] [address] [place] [address] Dr. Christiano William INR GUIDELINES SEE BELOW Normal [facility] Comment on above: Result Comment: DALLIN RED INR: 2.0 - 3.0 CONDITIONS NOT LISTED BELOW 2.5 - 3.5 FOR PROSTHETIC HEART VALVE REPLACEMENT 2.5 - 3.5 RECURRENT THROMBOSIS Performed By: #### P T, PTT #### [facility] [address] [place] [address] Dr. Christiano William PT Coag (PPP) [Time] 10.5 s Normal 9.0-11.6 [facility] Comment on above: Performed By: #### P T, PTT #### [facility] [address] [place] [address] Dr. Christiano William PTTon 09-13-2021 aPTT Coag (Bld) [Time] 29.0 s Normal 22.3-36.2 [facility] Comment on above: Performed By: #### P T, PTT #### [facility] [address] [place] [address] Dr. Christiano William BASIC METABOLIC PANELon Anion gap [Moles/Vol] 12 mmol/L Normal 10-20 [facility] Comment on above: Performed By: #### C H8, ETOH #### [facility] [address] [place] [address], Calcium [Mass/Vol] 8.0 mg/dL Low 8.4-10.4 [facility] Comment on above: Performed By: #### C H8, ETOH #### [facility] [address] [place] [address], Chloride [Moles/Vol] 105 mmol/L Normal 97-111 [facility] Comment on above: Performed By: #### C H8, ETOH #### [facility] [address] [place] [address], CO2 [Moles/Vol] 20 mmol/L Low 21-30 The [facility] Comment on above: Performed By: #### C H8, ETOH #### [facility] [address] [place] [address], Creatinine [Mass/Vol] 0.81 mg/dL Normal 0.80-1.30 [facility] Comment on above: Performed By: #### Ronaldo Guevara8, ETOH #### [facility] [address] [place] [address], ESTIMATED GFR (CKD-EPI) 97 mL/min/1.73sqm Normal >=60 The [facility] Comment on above: Performed By: #### Ronaldo Guevara8, ETOH #### [facility] [address] [place] [address], Glucose [Mass/Vol] 86 mg/dL Normal 80-[address] [facility] Comment on above: Performed By: #### Ronaldo Karu, ETOH #### [facility] [address] [place] [address], Potassium [Moles/Vol] 4.0 mmol/L Normal 3.3-5.3 [facility] Comment on above: Performed By: #### Ronaldo Kaur, ETOH #### [facility] [address] [place] [address], Sodium [Moles/Vol] 133 mmol/L Low 135-[address] [facility] Comment on above: Performed By: #### Ronaldo Kaur, ETOH #### [facility] [address] [place] [address], Urea nitrogen [Mass/Vol] 9 mg/dL Normal 8-22 [facility] Comment on above: Performed By: #### Ronaldo Guevara8, ETOH #### [facility] [address] [place] [address], CBC WITH DIFFERENTIALon 11-0 -2020 Basophils (Bld) [#/Vol] 0.02 10*3/uL Normal 0.00-0.20 [facility] Comment on above: Performed By: #### Ronaldo BCDSAT ####[facility] [id number] [place], [place], Basophils/100 WBC (Bld) 0.2 % Normal <=1.9 [facility] Comment on above: Performed By: #### Ronaldo BLANCHARDDSAT ####[facility] [id number] [place], [place], Eosinophils (Bld) [#/Vol] 0.05 10*3/uL Normal 0.00-0.70 [facility] Comment on above: Performed By: #### C BCDSAT ####[facility] [id number] [place], [place], Eosinophils/100 WBC (Bld) 0.5 % Normal 0.1-4.0 [facility] Comment on above: Performed By: #### C BCDSAT ####[facility] [id number] [place], [place], Erythrocyte distribution width (RBC) [Ratio] 12.0 % Normal 11.5-14.5 [facility] Comment on above: Performed By: #### C BCDSAT ####[facility] [id number] [place] [address], Hematocrit (Bld) [Volume fraction] 36.0 % Low 41.0-53.0 The [facility] Comment on above: Performed By: #### C BCDSAT ####[facility] [id number] [place], [place], Hemoglobin (Bld) [Mass/Vol] 12.3 g/dL Low 13.9-16.3 [facility] Comment on above: Performed By: #### C BCDSAT ####[facility] [id number] [place], Lymphocytes (Bld) [#/Vol] 0.56 10*3/uL Low 1.00-4.80 [facility] Comment on above: Performed By: #### C BCDSAT ####[facility] [id number] [place], Lymphocytes/100 WBC (Bld) 5.9 % Low 24.0-44.0 [facility] Comment on above: Performed By: #### C BCDSAT ####[facility] [id number] [place], [place], MCH (RBC) [Entitic mass] 33.4 pg Normal 26.0-34.0 [facility] Comment on above: Performed By: #### C BCDSAT ####S PATHOLOGY [id number] [place], MCHC (RBC) [Mass/Vol] 34.1 g/dL Normal 32.0-35.9 [facility] Comment on above: Performed By: #### C BCDSAT ####S PATHOLOGY [id number] [place], [place], MCV (RBC) [Entitic vol] 98 fL Normal 80-100 [facility] Comment on above: Performed By: #### C BCDSAT ####[facility] [id number] [place], MONOCYTE DISTRIBUTION WIDTH 16 Normal <=20 The [facility] Comment on above: Performed By: #### C BCDSAT ####[facility] [id number] [place], [place], Monocytes (Bld) [#/Vol] 0.48 10*3/uL Normal 0.20-1.00 [facility] Comment on above: Performed By: #### C BCDSAT ####[facility] [id number] [place], Monocytes/100 WBC (Bld) 5.1 % Normal 2.0-11.0 [facility] Comment on above: Performed By: #### C BCDSAT ####[facility] [id number] [place], Neutrophils (Bld) [#/Vol] 8.38 10*3/uL High 1.50-8.00 [facility] Comment on above: Performed By: #### C BCDSAT ####S PATHOLOGY [id number] [place], Neutrophils/100 WBC (Bld) 88.4 % High 31.0-76.0 [facility] Comment on above: Performed By: #### C BCDSAT ####[facility] [id number] [place], [place], Platelet mean volume (Bld) [Entitic vol] 8.7 fL Normal 7.5-11.2 The [facility] Comment on above: Performed By: #### C BCDSAT ####[facility] [id number] [place], Platelets (Bld) [#/Vol] 182 10*3/uL Normal 150-400 [facility] Comment on above: Performed By: #### C BCDSAT ####[facility] [id number] [place], RBC (Bld) [#/Vol] 3.67 10*6/uL Low 4.50-5.90 The [facility] Comment on above: Performed By: #### C BCDSAT ####[facility] [id number] [place], WBC (Bld) [#/Vol] 9.5 10*3/uL Normal 4.5-11.[address] [facility] Comment on above: Performed By: #### C BCDSAT ####[facility] [id number] [place], [place], CT HEAD W/O CONTRASTon 02-20 CT HEAD [...] Left scalp hematoma. MACRO: None Normal The [facility] Consultson 02-20-2021 Outplacement Consultant Authentication Interface Message Text NEUROSURGERY CRANIAL TRAUMA [...] x 3 PERRL, EOMI FS, TM BUE 5/5, no drift BLE 5/5 SILTx4 PHYSICAL EXAMINATION: Vital signs reviewed General [...] at this time for DVT prophylaxis. Hold SQH at this time -No acute neurosurgical intervention. Will continue to follow Patient was seen and examined within 30 minutes of consultation and will be discussed with staff shortly. Please call anytime with questions or concerns. Mala Duncan PA-C Neurosurgery Pager [phone] Normal The [facility] ED Noteson 02-20-2021 Outplacement Consultant Authentication Interface Message Text Patient up in wheelchair and refusing to get back into bed. Normal [facility] ED Provider Noteson 02-21-20 Outplacement Consultant Authentication Interface Message Text HISTORY OF PRESENT ILLNESS ----- 02/19/2021, 10:10 PM. Category: 2 The patient was brought to the ED by Devon Damon. The history is provided by EMS. Reji [...] with arterial bleeding. Patient initially seen at [facility]. Patient was found to have a subarachnoid hemorrhage at the OSH. Cervical spine was cleared. Laceration repair of the head wound was performed. Patient refused transfer to [facility] and was combative and required medical sedation with 70 mg of ketamine and 4 mg of versed by [employer]. Pre hospital information: patient placed in c-collar. [...] PHYSICAL EXAM Vitals Recorded in This Encounter 02/19/2021222902/19/2021 2233 02/19/2021 2330 02/20/2021 0000 02/20/2021 0030 BP: 130/80 [...] Palpable bilateral PT Spine precautions: C-Collar Total [place] Coma Scale: 13 Eyes: eyes open to [...] --- (more content not included)... Normal [facility] ED Triage Noteson 02-20-2021 Outplacement Consultant Authentication Interface Message Text Prehospital Medications: See [employer] documentation for medication information. [employer] gave patient 70mg Ketamine, and 4mg versed for being combative. Normal [facility] Outplacement Consultant Authentication Interface Message Text Patient was drinking this evening and fell down an unknown amount of stairs. Patient had a +LOC for about 5 minutes according to family. Patient was a tranfers from [employer]. Normal [facility] ETHANOL, SERUMon 02-20-2021 Ethanol [Mass/Vol] 114 mg/dL High None Detected [facility] Comment on above: Performed By: #### C H8, ETOH #### [facility] [address] [place], [place], HIV1 HIV2 AGAB SCRNon 2020 HIV AG-AB SCREEN Non-Reactive Normal Non-Reactive [facility] Comment on above: Order Comment: HIV I nformation: ???[place] Rev. code 3701.243(E):This information has been disclosed [...] By: #### h iv1 hiv2 agab scrn ####[facility] [id number] [place], [place], LACTIC ACIDon 02-20-2021 CR LACT 1.9 mmol/L Normal 0.5-2.0 The [employer] [facility] Comment on above: Performed By: #### L ACT #### [facility] [address] [place], [place], PARTIAL THROMBOPLASTIN TIMEo n 02-20-2021 aPTT Coag (Bld) [Time] 23 s Low 25-37 [facility] Comment on above: Performed By: #### A PTT, PT #### [facility] [address], [place], PROTHROMBIN TIME AND INRon 1 04-22-2020 INR Coag (PPP) [Relative time] 1.10 {INR} Normal 0.90-1.10 [facility] Comment on above: Performed By: #### A PTT, PT #### [facility] [address], [place], PT Coag (PPP) [Time] 12.2 s Normal 9.7-12.9 [facility] Comment on above: Performed By: #### A PTT, PT #### S [facility]OLOG[facility] LABORAT[facility] [address], [place], Progress Noteson 02-20-2021 Outplacement Consultant Authentication Interface Message Text CAT 2: Fall [...] SW left a voicemail for pt's Grecia Pnion [phone] providing an update. Plan: likely admit Jalyn Tripathi CAR RENTAL AGENT, COOK DESSERT ED Patternmaker Plaster Pager: [phone] Normal [facility] TYPE AND SCREENon 02-20-2021 ABO and Rh group Nom (Bld) Blood group O Rh(D) positive Normal [facility] Comment on above: Performed By: #### T S #### [facility] [address], [place], ABO and Rh group Nom (Bld) No Previous Results Normal [facility] Comment on above: Performed By: #### T S #### [facility] [address], [place], ABSC INT Negative Normal [facility] Comment on above: Performed By: #### T S #### S PATHOLOGY LABORATORY [address] [place] [address], Vital Signs Date Time Vital Sign Value Performing Clinician Facility 08-14-2024 14:40-0400 Body height 172.72 cm [facility] 08-14-2024 14:40-0400 Body mass index (BMI) [Ratio] 30.2 kg/m2 [facility] 08-14-2024 14:40-0400 Body weight 90.26 kg [facility] 08-14-2024 14:40-0400 Diastolic blood pressure 74 mm[Hg] [facility] 08-14-2024 14:40-0400 Heart rate 78 /min [facility] 08-14-2024 14:40-0400 Respiratory rate 12 /min [facility] 08-14-2024 14:40-0400 Systolic blood pressure 108 mm[Hg] [facility] 02-14-2024 14:33-0400 Body height 172.72 cm [facility] 02-14-2024 14:33-0400 Body mass index (BMI) [Ratio] 31.1 kg/m2 [facility] 02-14-2024 14:33-0400 Body temperature 97.3 [degF] [facility] 02-14-2024 14:33-0400 Body weight 92.98 kg [facility] 02-14-2024 14:33-0400 Diastolic blood pressure 70 mm[Hg] [facility] 02-14-2024 14:33-0400 Heart rate 80 /min [facility] 02-14-2024 14:33-0400 Systolic blood pressure 118 mm[Hg] [facility] 08-13-2023 08:41-0400 Body height 172.72 cm [facility] 08-13-2023 08:41-0400 Body mass index (BMI) [Ratio] 31.3 kg/m2 [facility] 08-13-2023 08:41-0400 Body weight 93.49 kg [facility] 08-13-2023 08:41-0400 Diastolic blood pressure 88 mm[Hg] [facility] 08-13-2023 08:41-0400 Heart rate 71 /min [facility] 08-13-2023 08:41-0400 Respiratory rate 12 /min [facility] 08-13-2023 08:41-0400 Systolic blood pressure 139 mm[Hg] [facility] 03-29-2023 14:30-0500 Body height 172.72 cm Stevie Ball Other [facility] Other 03-29-2023 14:30-0500 Body mass index (BMI) [Ratio] 30.16 kg/m2 Stevie Ball Other [facility] Other 03-29-2023 14:30-0500 Body weight 89.99 kg Stevie Ball Other [facility] Other 03-29-2023 14:30-0500 Diastolic blood pressure 75 mm[Hg] Stevie Ball Other [facility] Other 03-29-2023 14:30-0500 Respiratory rate 12 /min Stevie Ball Other [facility] Other 03-29-2023 14:30-0500 Systolic blood pressure 109 mm[Hg] Stevie Ball Other [facility] Other 11-19-2022 15:30-0400 Body height 172.72 cm Stevie Ball Other [facility] Other 11-19-2022 15:30-0400 Body mass index (BMI) [Ratio] 28.73 kg/m2 Stevie Ball Other [facility] Other 11-19-2022 15:30-0400 Body weight 85.73 kg Stevie Ball Other [facility] Other 11-19-2022 15:30-0400 Diastolic blood pressure 102 mm[Hg] Stevie Ball Other [facility] Other 11-19-2022 15:30-0400 Respiratory rate 12 /min Stevie Ball Other [facility] Other 11-19-2022 15:30-0400 Systolic blood pressure 156 mm[Hg] Stevie Ball Other [facility] Other 08-08-2022 16:30-0400 Body height 172.72 cm Stevie Ball Other [facility] Other 08-08-2022 16:30-0400 Body mass index (BMI) [Ratio] 29.56 kg/m2 Stevie Ball Other [facility] Other 08-08-2022 16:30-0400 Body weight 88.18 kg Stevie Ball Other [facility] Other 08-08-2022 16:30-0400 Diastolic blood pressure 95 mm[Hg] Stevie Ball Other [facility] Other 08-08-2022 16:30-0400 Respiratory rate 12 /min Stevie Ball Other [facility] Other 08-08-2022 16:30-0400 Systolic blood pressure 143 mm[Hg] Stevie Ball Other [facility] Other 09-04-2021 14:11-0400 Blood Pressure Location Bora LOYD [facility] 09-04-2021 14:11-0400 Diastolic blood pressure 94 mm[Hg] Bora LOYD [facility] 09-04-2021 14:11-0400 Heart rate 104 /min [facility] 09-04-2021 14:11-0400 Systolic blood pressure 139 mm[Hg] Bora LOYD [facility] 08-18-2021 13:54-0400 Blood Pressure Location Janusz BRADY [facility] [place] 08-18-2021 13:54-0400 Diastolic blood pressure 92 mm[Hg] Janusz NILL [facility] [place] 08-18-2021 13:54-0400 Heart rate 80 /min Janusz NILL [facility] [place] 08-18-2021 13:54-0400 Respiratory rate 16 /min Janusz NILL [facility] [place] 08-18-2021 13:54-0400 Systolic blood pressure 130 mm[Hg] Janusz NILL [facility] [place] Encounters Encounter Date Encounter Type Care Provider Facility Start: 08-14-2024 End: 08-14-2024 ambulatory [facility] Work Phone: Start: 08-14-2024 End: 08-14-2024 Encounter for general adult medical examination without abnormal findings [facility] Start: 08-14-2024 End: 08-14-2024 Patient encounter procedure [facility] Work Phone: Start: 08-07-2024 Non-patient / Non-visit [facility] Work Phone: Start: 07-13-2024 Patient encounter status [facility] Start: 02-14-2024 End: 02-14-2024 ambulatory [facility] Work Phone: Start: 02-14-2024 End: 02-14-2024 Patient encounter procedure [facility] Work Phone: Start: 02-12-2024 Non-patient / Non-visit [facility] Work Phone: Start: 08-13-2023 End: 08-13-2023 ambulatory [facility] Work Phone: Start: 08-13-2023 End: 08-13-2023 Encounter for general adult medical examination without abnormal findings [facility] Start: 08-13-2023 End: 08-13-2023 Patient encounter procedure [facility] Work Phone: Start: 08-07-2023 Non-patient / Non-visit [facility] Work Phone: Start: 03-29-2023 End: 03-29-2023 ambulatory Stevie Ball Other [facility] Other Start: 03-29-2023 Office outpatient vi sit 15 minutes Stevie Ball [facility] Start: 03-28-2023 End: 03-29-2023 ambulatory Jenna MACKENZIE [facility] Start: 02-20-2023 End: 02-20-2023 ambulatory Stevie Ball Other [facility] Other Start: 02-20-2023 Telephone encounter Stevie Ball [facility] Start: 01-23-2023 End: 01-23-2023 ambulatory Stevie Ball Other [facility] Other Start: 01-23-2023 Telephone encounter Stevie Ball [facility] Start: 12-28-2022 End: 12-28-2022 ambulatory Stevie Ball Other [facility] Other Start: 12-28-2022 Telephone encounter Stevie Ball [facility] Start: 12-10-2022 End: 12-10-2022 ambulatory Stevie Ball Other [facility] Other Start: 12-10-2022 Telephone encounter Stevie Ball [facility] Start: 11-19-2022 End: 11-19-2022 ambulatory Stevie Ball Other [facility] Other Start: 11-19-2022 Office outpatient vi sit 25 minutes Stevie Ball [facility] Start: 09-06-2022 End: 09-06-2022 ambulatory Stevie Madsen Other [facility] Other Start: 09-06-2022 Telephone encounter Stevie MONTES [facility] Start: 08-27-2022 End: 08-27-2022 ambulatory Stevie Madsen Other [facility] Other Start: 08-27-2022 Telephone encounter [facility] Start: 08-24-2022 End: 08-25-[address] STEVIE MADSEN Facility:[facility] Start: 08-09-2022 Encounter for genera l adult medical examination without abnormal findings DR STEVIE MADSEN [facility] Start: 08-08-2022 End: 08-08-2022 ambulatory Stevie Madsen Other [facility] Other Start: 08-08-2022 Encounter for genera l adult medical examination without abnormal findings Stevie Madsen [facility] Start: 08-08-2022 Periodic preventive med est patient 40-64yrs Stevie Madsen [facility] Start: 08-03-2022 End: 08-04-[address] STEVIE MADSEN Facility:[facility] Start: 08-03-2022 End: 08-04-2022 Encounter for general adult medical examination without abnormal findings DR STEVIE MADSEN Facility:[facility] Start: 10-20-2021 End: 10-20-2021 Patient encounter procedure Bora LOYD [facility] Start: 09-20-2021 Encounter for preprocedural cardiovascular examination DR BORA LOYD . [facility] Start: 09-20-2021 Encounter for preprocedural laboratory examination DR BORA LOYD . [facility] Start: 09-20-2021 End: 09-20-[address] JANUSZ BRADY . Facility:[facility] Start: 09-14-2021 End: 09-14-[address] BORA LOYD . Facility:[facility] Start: 09-13-2021 End: 09-14-[address] BORA LOYD . Facility:[facility] Start: 09-13-2021 End: 09-14-2021 Encounter for preprocedural laboratory examination DR BORA LOYD . Facility:[facility] Start: 09-04-2021 End: 09-04-2021 Patient encounter procedure Bora LOYD [facility] Start: 08-18-2021 End: 08-18-2021 Patient encounter procedure Janusz Hill NILL [facility] [place] Start: 08-01-2021 Adult health examination Salty dta Madsen Other [facility] Other Start: 08-01-2021 Encounter for genera l adult medical examination without abnormal findings Stevie Madsen Other [facility] Other Start: 02-20-2021 End: 02-20-2021 ambulatory [facility]KNOWN PROVIDER [facility] Start: 02-20-2021 End: 02-20-2021 Emergency department patient visit [facility] Facility:[facility] Start: 02-19-2021 ambulatory UNKNOWN PROVIDER [facility] Procedures Date Procedure Procedure Detail Performing Clinician Start: 08-03-[address] CRAFT IN [place] Comment on above: Performed By: #### [facility] #### [facility] [address] [place] [address] Dr. Christiano William Start: 09-14-2021 Excision of spermatocele Bora LOYD Start: 06-18-2016 Colonoscopy Janusz DUMONT Depression screening Niels Madsen Other Screening for cancer Niels Madsen Other Immunizations Immunization Date Immunization Notes Care Provider Fa samantha 02-14-2024 influenza, seasonal, injectable, preservative free [facility] 07-29-2020 COVID-19, mRNA, LNP- S, PF, 30 mcg/0.3 mL dose; Translations: [Pfizer-BioNTech COVID-19 Vaccine] Janusz BRADY [facility] [place] Comment on above: Reason for Medicatio n: Prophylaxis 07-01-2020 COVID-19, mRNA, LNP- S, PF, 30 mcg/0.3 mL dose; Translations: [Pfizer-BioNTech COVID-19 Vaccine] Janusz BRADY [facility] [place] Comment on above: Reason for Medicatio n: Prophylaxis 07-22-2013 tetanus toxoid, redu kesha diphtheria toxoid, and acellular pertussis vaccine, adsorbed Janusz BRADY [facility] [place] Payers Date Payer Category Payer Unknown [id number] 2.. [id number] 1960 Unknown [id number] 2.16. [id number] 1960 Unknown [id number] 2.. [id number] 1960 Unknown [id number] 2.. [id number] 1960 Unknown [id number] 2.16.84 [id number] 1960 Unknown [id number] 2.16.84 [id number] 1960 Unknown [id number] 2.16.84 [id number] 1960 Unknown [id number] 2.16.84 [id number] 1960 Unknown [id number] 2.16.84 [id number] 1959 [facility] AWA [id number] Social History Date Type Detail Facility Start: 08-18-2021 End: 10-20-2021 Tobacco smoking status Never smoked tobacco (finding) [facility] [place] Comment on above: uses snuff Tobacco smoking status Smokeless tobacco user within last 30 days [facility] [place] Comment on above: uses snuff Sex Assigned At Male [facility] Start: 1960 Sex Assigned At Male F [facility] if ever smoked [facility] Work Phone: Start: 08-14-2024 Sex Male (finding) [facility] Functional Status Date Assessment Result Facility 10-20-2021 Functional Status N/A [facility] Clinical Notes 02-20-2021 to 03-29-2023 Note Date [...] exercise and keep active. Proper sleep routine. [facility] Other 10-11-2023 Evaluation note* Encounter Date Diagnosis Assessment Notes Treatment Notes Treatment Clinical Notes Jan, Primary hypertension (ICD-10 - I10) [facility] Other 09-15-2023 Evaluation note* Encounter Date Diagnosis Assessment Notes Treatment Notes Treatment Clinical Notes Dec, Primary hypertension (ICD-10 - I10) [facility] Other 08-28-2023 Evaluation note* Encounter Date Diagnosis Assessment Notes Treatment Notes Treatment Clinical Notes Nov, Primary hypertension (ICD-10 - I10) [facility] Other 08-07-2023 Evaluation note* Encounter Date Diagnosis [...] - he admits to depression since 's [facility] Other 05-25-2023 Evaluation note* Encounter Date Diagnosis Assessment Notes Treatment Notes Treatment Clinical Notes August, Aneurysm of ascending aorta without rupture (ICD-10 - I71.21) ECHO: 4.9cm - 08/2022 [facility] Other 05-15-2023 Evaluation note* Encounter Date Diagnosis Assessment Notes Treatment Notes Treatment Clinical Notes August, SOB (shortness of breath) (ICD-10 - R06.02) August, Chronic cough (ICD-10 - R05.3) August, Post COVID-19 condition, 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 Follow Up Care 09/04/2021 15:28:27 With:EVERT DEE, BRENNON CaraballoL Address: [address] [place] [address] [place] [address]- When:Within 3 Month(s) [facility] 06-08-2022 NoteOPERATIVE NOTE OPERATION DATE: [...] of colon cancer. CC: Stevie Madsen [facility] Signed and Approved by: DR JANUSZ BRADY . 09/21/2021 12:58:00[facility]05-23-2022 Hospital Discharge instructions Patient Education 09/04/2021 [...] Watch the hydrocele for any changes. Take jlcz-cxc-dphnlah and prescription medicines only as told by [...] 09/19/2010 Document Revised: 04/12/2018 Document Reviewed: 04/12/2018 [email or web address] Patient Education 2020 [employer]. Follow Up Care 08/03/2021 10:14:47 With:EVERT DEE, Bora Hill, URL Address: [facility] [address] [place] [address]- When: Unknown [facility] 11-08-2021 NoteDISCHARGE SUMMARY [facility] [address] [place] [address] Reji Pinon Date of : 1960 60 [...] 60 year old male who presents to [facility] as a transfer from [facility] after a mechanical fall down stairs resulting in a possible small L sided SAH. Repeat CT head on [facility] did not showed such head bleeding. [...] prophylaxis due to: lack of traumatic injuries.[facility] [id number] NoteNeurosurgery Treatment Plan Note Repeat CTH does not demonstrate prior imaging finding from OSH. No acute neurosurgery intervention. No follow up necessary. Neurosurgery to sign off at this time. Please call anytime with questions or concerns. Mala Duncan PA-C Neurosurgery Service Pager: [phone] [id number] [facility] DIV[facility] OF ACUTE CARE SURGERY TRAUMA SURGERY HISTORY AND PHYSICAL Reji Pinon [id number] 02/19/21 BASIC INJURY INFORMATION: Level of activation: [...] down stairs. He was initially evaluated at [facility] where he was noted to have a small SAH which prompted his transfer to [facility]. Patient was positive for EtOH and [...] Gatherings with Friends and Family: * Attends [employer] Services: * Active Member of Clubs or Organizations: * Attends Club or Organization Meetings: * Marital Status: Intimate Partner Violence: * Fear of Current or Ex-Partner: * Emotionally Abused: * Physically Abused: * Sexually Abused: Living status: Home Primary language: Niuean Functional status: Unknown Impairments: Unknown Assistive Devices [...] - 11.5 K/uL (more content not included)...[facility] Evaluation + Plan note Future Appointments Appointment Date:09/04/2021 02:00:00 PM Scheduled Provider:Bora LOYD MD Location:[facility] Appointment Type:URO New Patient [facility] [place] Evaluation + Plan note Future Appointments Appointment Date:11/10/2021 08:00:00 AM Scheduled Provider:Bora LOYD MD Location:[facility] Appointment Type:URO Office Visit [facility] evaluation + Plan note Future Appointments Appointment Date:01/26/2022 09:30:00 AM Scheduled Provider:Bora LOYD MD Location:[facility] Appointment Type:URO Office Visit [facility] evaluation noteNo [facility] Other Evaluation note* Diagnosis Onset Date Resolution Status Benign prostatic hyperplasia with lower urinary tract symptoms acute Bicuspid aortic valve acute Hypertension acute Major depression acute Screening PSA (prostate specific antigen) noneactive Wellness examination noneact dayan [facility] Work Phone: Evaluation note* Diagnosis Onset Date Resolution Status Benign prostatic hyperplasia with lower urinary tract symptoms acute Bicuspid aortic valve acute Hypertension acute Major depression acute [facility] Work Phone: Evaluation note* Diagnosis Onset Date Resolution Status Admit Date Benign prostatic hyperplasia with lower urinary tract symptoms acute August 14, 2024 2: 10pm Bicuspid aortic valve acute August 14, 2024 2:10pm Hypertension acute August 14 2:10pm Major depression acute August 14, 2024 2:10pm Obesity acute August 14, 2024 2:10pm Screening PSA (prostate specific antigen) acute August 14, 2024 2:10pm Wellness examination noneactive August 14, 2024 2:10pm [facility] Work Phone: History general Narrative - Reported* Type Description Date Medical History Testicular cyst Medical History Spermatocele Medical History Hydrocele, left Medical History Chewing tobacco kassidy ofe dependence without complication Medical History Acute pain of left shoulder Medical History Hydrocele in adult Surgical History COLONOSCOPY Surgical History LEFT SPERMATOCELECTOMY 2021 Hospitalization History SEE SURG[facility] Other History general Narrative - Reported* Type Description Date Medical History Testicular cyst Medical History Spermatocele Medical History Hydrocele, left Medical History Chewing tobacco kassidy ofe dependence without complication Medical History Acute pain of left shoulder Medical History Hydrocele in adult Medical History Bicuspid aortic valve Medical History Ascending aortic aneurysm Surgical History COLONOSCOPY Surgical History LEFT SPERMATOCELECTOMY 2021 Hospitalization History SEE SURGICAL [facility] Other Hospital course Narrative No data available for this section [facility] [place] [facility] Discharge instructions No data available for this section [facility] [place] Progress note No data available for this section [facility] Summary Purpose Family History Relationship Condition Age at Onset Recorded Date/T mariama father Heart disease Unknown Diabetes mellitus Unknown Hypertension Unknown Not Specified Family history of mental disorder Unknow n Malignant neoplasm Unknown Family history of colon cancer Unknown Relationship Condition Age at Onset Recorded Date/T mariama father Heart disease Unknown Diabetes mellitus Unknown Hypertension Unknown mother Family history of mental disorder Unknown Malignant neoplasm Unknown Family history of colon cancer Unknown Advance Directives Advance Directive Response Recorded Date/ Time Advance Directives No May 13, 2023 1:52pm Chief Complaint and Reason for Visit Chief Complaint Wellness Reason for Visit Benign prostatic hyp erplasia with lower urinary tract symptoms Bicuspid aortic valve Hypertension Major depression Screening PSA (prostate specific antigen) Wellness examination Chief Complaint CC Adult Risk Strati fication 6 month follow up Reason for Visit Benign prostatic hyp erplasia with lower urinary tract symptoms Bicuspid aortic valve Hypertension Major depression Chief Complaint Admit Date Wellness August 14, 2024 2:10pm Reason for Visit Admit Date Benign prostatic hyperplasia with lower urinary tract symptoms August 14, 2024 2:10pm Bicuspid aortic valve August 14, 2024 2:10 pm Hypertension August 14, 2024 2:10pm Major depression August 14, 2024 2:10pm Obesity August 14, 2024 2:10pm Screening PSA (prostate specific antigen ) August 14, 2024 2:10pm Wellness examination August 14, 2024 2:10p m Additional Source Comments (unrecognized sect ion and content) No Status Records FoundNo Status Records FoundNo Status Records Found INFORMATION SOURCE (unrecogn ized section and content) DATE CREATED AUTHOR 05/24/2021 [facility] DATE CREATED AUTHOR AUTHOR'S ORGANIZ ATION 08/25/2022 [facility] [place] [facility] DATE CREATED AUTHOR AUTHOR'S ORGANIZ ATION 04/02/2023 [facility] Care Team (unrecognized sect ion and content) Team Status: Active Member Role Status Dates Stevie Madsen DO Primary Care Provider Active Team Status: Active Member Role Status Dates Stevie Ball , DO Primary Care Provide r, Attending Provider Active Start: August 07, 2023 Team Status: Inactive Member Role Status Dates Stevie Madsen , DO Primary Care Provide r, Attending Provider Active Start: August 13, 2023 End: August 13, 2023 Team Status: Active Member Role Status Dates Stevie Madsen , DO Primary Care Provide r, Attending Provider Active Start: February 12, 2024 Team Status: Inactive Member Role Status Dates Stevie Madsen , DO Primary Care Provide r, Attending Provider Active Start: February 14, 2024 End: February 14, 2024 Team Status: Active Member Role Status Dates Stevie Madsen , DO Primary Care Provide r, Attending Provider Active Start: August 07, 2024 Team Status: Inactive Member Role Status Dates Stevie Madsen , DO Primary Care Provide r, Attending Provider Active Start: August 14, 2024 End: August 14, 2024 REASON FOR VISIT (unrecogniz ed section and [...] BE BASED ON THE PRIMARY CLINICAL RECORDS. [facility] [employer] [facility]. provides no warranty or guarantee of the accuracy or completeness of information in this document.
[2024-09-14 09:17] LABS: Estimated GFR (African America >60 (>=60 mL/min/1.73m^2); Estimated GFR (Non-African Ame >60 (>=60 mL/min/1.73m^2)
--- NOTE | 2024-09-14 09:42 | CT_ITS ---
The [address] [address] Patient Name: REJI PINON MRN: [id number] date: 1960 Sex: M Assigned Patient Location: LAB Current Patient Location: LAB Accession/Order Number: [id number] Exam Date: 09/14/2024 10:21 Report Date: 09/14/2024 10:28 At the request of: HAYLEY PIERRE DO Procedure: CT angio chest CTA CHEST WITH CONTRAST CLINICAL HISTORY: Ascending Aortic Aneurysm, Bicuspid Aortic Valve. Chronic shortness of breath COMPARISON: None TECHNIQUE: Spiral images were obtained through the chest following intravenous administration of 100 mL of Omnipaque 350. Images were reviewed using both narrow and wide window settings. Sagittal, coronal and 3 D volume-rendered reconstructions were performed and reviewed. This CT exam was performed using one or more following dose reduction techniques: Automated exposure control, adjustment of the mA and/or kV according to patient size, or use of iterative reconstruction technique. FINDINGS: The heart is top normal in size. There is no pericardial effusion. There is mild aneurysmal dilatation of the ascending aorta with diameter of approximately 4.5 cm. No dissection is seen. There is adequate opacification of the pulmonary arteries. No emboli are identified. No pathologic lymphadenopathy is seen. Mild endplate spurring is present at the spine. There is minor apical scarring. Mild dependent atelectasis is visualized. There is no consolidation, effusion or discrete soft tissue nodules. No pneumothorax is seen. Limited cuts through the upper abdomen show no contributory abnormality. CT/CT angio chest IMPRESSION: 4.5 CM ASCENDING AORTIC ANEURYSM. NO CT EVIDENCE OF PULMONARY EMBOLISM. NO ACUTE PULMONARY FINDINGS. Impression dictated by: Lu Romano M.D. 09/14/2024 10:28 AM Dictation Location: [place] [address] Electronically authenticated by: [id number] Y Date: 09/14/2024 10:28
== END 2024-09-14 08:56 | disposition home or self-care (01) ==
LOC: LAB 08:55
PROVIDERS: PCP Internal Medicine; Visit Provider Internal Medicine
DX: Q23.1 Congenital insufficiency of aortic valve (principal); I71.21 Aneurysm of the ascending aorta, without rupture
CPT/HCPCS: 36415; 71275; 82565; 93306; Q9967

== ENCOUNTER 2024-09-21 12:54 | Outpatient (OUT) | payer BC, SELFPAY ==
[2024-09-21 13:11] LABS: Hemoglobin 15.3 g/dL (14.0-18.0)
[2024-09-21] MEDS: ALBUTEROL SULFATE 2.5 MG/3 ML VIAL NEB IH (13:48)
--- NOTE | 2024-09-21 13:51 | RT_ITS ---
The [facility] Test Date: 2024-09-21 Pat Name: REJI PINON Department: Room: - Gender: Male Funeral Driver: : 1960 Requested By: HAYLEY PIERRE Order Number: [id number] Janice MD: Elijah Finley Interpretive Statements Pulmonary function testing was completed according to ATS criteria. Findings were considered accurate and reproducible. Both pre- and post-bronchodilator values utilized for spirometry. Spirometry (based on pre-bronchodilator values): -FEV1/FVC: Normal @ 76% -FEV1: Normal @ 102% -FVC: Normal @ 100% -There is no significant bronchodilator response. Lung volumes by plethysmography (based on pre-bronchodilator values): -RV: Increased @ 123% -TLC: Normal @ 111% Diffusion capacity: -DLCO: Normal @ 88% when corrected for Hb 15.3g/dL Flow-volume loop: -Normal shape Impressions: -Technically normal PFT, though spirometry may be trending towards a mild obstruction. Clinical correlation required. Electronically Signed On 09-22-2024 16:52:09 EDT by Elijah Finley
== END 2024-09-21 12:55 | disposition home or self-care (01) ==
LOC: CARD 12:55
PROVIDERS: PCP Internal Medicine; Visit Provider Internal Medicine
DX: R06.09 Other forms of dyspnea (principal); I27.20 Pulmonary hypertension, unspecified
CPT/HCPCS: 36415; 85018; 94060; 94726; 94729

== ENCOUNTER 2024-10-07 21:27 | Outpatient (OUT) | payer BC, SELFPAY ==
--- OUTSIDE RECORDS SUMMARY | 2024-01-15 09:00 | XMS_ITS ---
Author Organization [facility] in [place] Address [address] [place] [address] Care Team Providers Care [employer] Name Role Phone Stevie Madsen DO Primary Care Provider Juancho Aguilar Unavailable [phone] Allergies No Known Allergies Reason For Referral Reason patient will call if he would like to go ahead with therapy Diagnosis 1 Plantar fascial fibr omatosis (M72.2) Referral Organization [facility] (P[facility]) Referring Provider First Name Juancho Referring Provider Last Name Aleena Referring Provider Speciality Podiatry Referred Provider Specialty Physical Med icine and Rehabilitation Referral Priority Routine REASON FOR VISIT LT heel pain Medications Medication SIG (Take, Route, Frequency, Duration) Notes Start Date End Date Status Carvedilol 25 MG 1 tablet with food O rally Twice a day 01/15/2024 Active Meloxicam 15 MG 1 tablet Orally Once a day for 30 days 01/15/2024 Active amLODIPine Besylate 5 MG 1 tablet Orally Once a day 01/15/2024 Active methylPREDNISolone 4 MG as directed Orally 024 Active Social History Tobacco Use: Social History Observation Description Date Details (start date - stop date) Current Smoker NA - NA Tobacco Control (Standard) Question Answer Notes Tobacco use: Current smoker Problems Problem Type SNOMED Code ICD Code Onset Dates Problem Status W/U Status Risk Notes Problem [id number] Plantar fascia l fibromatosis (M72.2) Active confirmed Vital Signs Temperature 97.8 degrees Fahrenheit 01/15/20 24 Heart Rate 83 /min 01/15/2024 Respiratory Rate 18 /min 01/15/2024 Height 68 in 01/15/2024 Weight 195 lbs 01/15/2024 BMI 29.65 kg/m2 01/15/2024 Oximetry 99 % 01/15/2024 Encounters Encounter Location Date Provider Diagnosis [facility] (PODIATRY) [address] [place] [address] [place] [address] 01/15/2024 Juancho Flood Left foot pain M79.672 and Plantar fascial fibromatosis M72.2 Assessments Encounter Date Diagnosis (ICD Code) Assessment Notes Treatment Notes Treatment Clinical Notes Section Notes 01/15/2024 Left foot pain (ICD-10 - M79.672) 01/15/2024 Plantar fascial fibromatosis (ICD-10 - M72.2) Patient seen and evaluated. Patient is occasion provided. I recommended Achilles tendon stretching exercises and a handout was provided. I also prescribed and strongly recommended formal physical therapy. We discussed shoe modification and RICE therapy. I prescribed a Medrol Dosepak which she is to take as directed as well as meloxicam which she can take as needed with food. He will follow-up in 6 weeks call sooner if needed no new x-rays are needed at follow-up Plan Of Treatment Medication Medication Name Sig Start Date Stop Date Notes Meloxicam 15 MG 1 tablet Orally Once a day for 30 days 01/15/2024 methylPREDNISolone 4 MG as directed Orally 01/15/2024 Treatment Notes Assessment Notes Plantar fascial fibromatosis Patient see n and evaluated. Patient is occasion provided. I recommended Achilles tendon stretching exercises and a handout was provided. I also prescribed and strongly recommended formal physical therapy. We discussed shoe modification and RICE therapy. I prescribed a Medrol Dosepak which she is to take as directed as well as meloxicam which she can take as needed with food. He will follow-up in 6 weeks call sooner if needed no new x-rays are needed at follow-up Pending Test Test Name Order Date XR Foot LT (3 views) * 01/15/2024 Referrals Referral Date Details 01/15/2024 01/15/2024, patient will call if he would like to go ahead with therapy Progress Notes * Sinan PINON:1960 (63 yo M)Acc No.[id number]:01/15/2024 New Patient Patient: Sidney JADE Provider: Jad Flood DPM, MS :1960 A ge:63 Y S ex:Male Date:01/15/2024 Address:[address] [place] [address] [place]ER[place]E GOMES [id number] Pcp:Stevie Madsen, DO Check In:12:42 PM ESTCheck O ut:01:16 PM EST Subjective: * Chief Complaints: * L T heel pain * HPI: G eneral: States left heel started with pain 2-3 months ago. Denies injury. States feels like walking on stone Has not tried inserts or ice or any pain meds. States it does feel better when wears work boots, worse barefoot. Rates pain 07/23. * ROS: G eneral/Constitutional: Chills d enies. F ever d enies. W eight gain?denies. W eight loss d enies. S kin: Skin Ulcers d enies. S kin lesion(s) d enies. ? C ardiovascular: Difficulty breathing on exertion d enies. L eg cramps?denies. E yesi d enies. C hest pain d enies. R espiratory: Difficulty breathing d enies. D yspnea d enies.?Cough d enies. G astrointestinal: Diarrhea d enies. N ausea d enies. V omiting?denies. M usculoskeletal: Bone/Joint Symptoms d enies. C namita Pain d enies.?Leg cramps d enies. N eurologic: Numbness d enies. T ingling d enies . G ait abnormality d enies. ? H ematology: Anemia D enies. E asy bruising d enies. ? A ll Other Systems: Review of Systems (ROS) S ee HPI for details,All others negative except those mentioned in HPI. * Active Problem List M79.672 Left foot pain Modified On:01/15/2024W/U Status:confirmed M72.2 Plantar fascial fibr omatosis Modified On:01/15/2024W/U Status:confirmed * Medical History: * Surgical History: D enies Past Surgical History * Hospitalization/Major Diagno stic Procedure: D enies Past Hospitalization * Family History: N o Family History documented.. * Social History: T obacco Use: T obacco Control (Standard) T obacco use: C urrent smoker * Medications: T akingamLODIPine Besylate 5 MG Tablet 1 tablet Orally Once a day Carvedilol 25 MG Tablet 1 tablet with food Orally Twice a day Medication List reviewed and reconciled with the patientTaking amLODIPine Besylate 5 MG Tablet 1 tablet Orally Once a day Taking Carvedilol 25 MG Tablet 1 tablet with food Orally Twice a day Medication List reviewed and reconciled with the patient * Allergies: N .K.D.A.no[Allergies Verified] Objective: * Vitals: W t:195lbs, Ht:68in, Temp:97.8F, HR:83/min, RR:18/min, BMI:29.65Index, Pain scale:41-10, Oxygen sat %:99%, Ht-cm: 172.72 cm, Wt-k.45 kg. * Examination: P odiatry Examination: SKIN: s kin intact, n o sign of infection. MUSCULOSKELETAL: P OP plantar medial instep. No pain with squeezing the heel and no pain over the Achilles tendon. Ankle joint dorsiflexion is limited to neutral and not past. Muscle strength is 5/5 in all planes. NEUROLOGICAL: l ight touch sensation intact, n egative tinel's sign. VASCULAR: P edal pulses palpable, C apillaryrefill is brisk to toe, D igitalhair intact. X -rays: x-rays were obtained & reviewed in my office. There is no evidence of fracture or stress fracture. Plantar calcaneal spur is noted. No evidence of trauma. Assessment: * Assessment: 1. P lantar fascial fibromatosis - M72.2 (Primary) 2 . L eft foot pain - M79.672 Plan: * Treatment: 2. L eft foot pain Start Meloxicam Tablet, 15 MG, 1 tablet, Orally, Once a day, 30 days, 30, Refills 1; S tart methylPREDNISolone Tablet Therapy Pack, 4 MG, as directed, Orally, 1 Pack, Refills 0. I maging: XR Foot LT (3 views) * * Procedure Codes: * Preventive Medicine: Screenings/Counseling: T OBACCO ACTION PLAN Patient counselled on the dangers of tobacco use and urged to quit. 1 * * Sign off status: Completed Visit Status: C HK (Check Out) true * Provider: Jad Flood DPM, MS Date: Generated for Heri abel/Amie/Shantalitting on: 0 2024 09:28 PM EDT History and Physical Notes * HPI (History of Present Illness) Category Sub-Category Detail Notes Category Not es General States left nicholas l started with pain 2-3 months ago. Denies injury. States feels like walking on stone Has not tried inserts or ice or any pain meds. States it does feel better when wears work boots, worse barefoot. Rates pain 4/10. Examination Category Sub-Category Detail Notes Category Not es Podiatry Examination SKIN: skin intact, no sign of infection X-rays: x-rays were obtained & reviewed in my office. There is no evidence of fracture or stress fracture. Plantar calcaneal spur is noted. No evidence of trauma MUSCULOSKELETAL: POP plantar medial i nstep. No pain with squeezing the heel and no pain over the Achilles tendon. Ankle joint dorsiflexion is limited to neutral and not past. Muscle strength is 5/5 in all planes NEUROLOGICAL: light touch sensatio n intact, negative tinel's sign VASCULAR: Pedal pulses palpable, Capillary refill is brisk to toe, Digital hair intact Consultation Request Notes Referral Date Referring Provider Referred Provider Not es 01/15/2024 Juancho Flood , patient wi ll call if he would like to go ahead with therapy
--- OUTSIDE RECORDS SUMMARY | 2024-10-07 21:28 | XMS_ITS | Patient Health Record ---
Author Organization The [facility] [place] Address [address] [place] [address] Care Team Providers Care Palletiser Operator Name Role Phone Stevie Madsen DO Primary Care Provider Bentleya Solo [place] [phone] Allergies No Known Allergies Results Component Value Reference Range Notes XR foot LT min 3V (Not yet r eviewed by provider) Interpretation: Performing Lab: Notes/Report: Source Facility: [place] [address] XRay Report Signed Patient: SIDNEY RINCON MR#: [id number] : 1960 Acct:[id number] Age/Sex: 63 / M ADM Date: 01/15/24 Loc: EC Attending Dr: Solo Flood D.P.M. Ordering Physician: Solo Flood D.P.M. Date of Service: 01/15/24 Procedure(s): XR foot LT min 3V Accession Number(s): [id number] cc: Stevie Madsen D.O.; Solo Flood D.P.M. [place] [id number] Patient Name: SIDNEY RINCON MRN: [id number] date: 1960 Sex: M Assigned Patient Location: Current Patient Location: Accession/Order Number: [id number] Exam Date: 01/15/2024 12:57 Report Date: 01/16/2024 08:16 At the request of: SOLO FLOOD Procedure: XR foot LT min 3V PROCEDURE: XR foot LT min 3V COMPARISON: None. HISTORY: LEFT FOOT PAIN FINDINGS: BONES:No acute fracture or dislocation. Moderate plantar enthesopathic spurring of the calcaneus. Mild degenerative changes of the midfoot with marginal osteophyte formation SOFT TISSUES:Negative. No visible soft tissue swelling. EFFUSION:None visible. OTHER: Negative. XR/XR foot LT min 3V IMPRESSION: Moderate plantar enthesopathic spurring Electronically authenticated by: MARGARITA VIERA Date: 01/16/2024 08:16 Dictated By: Margarita Viera M.D. Signed By: 01/16/24817 DD/ 5 TD/TT: Computer Network And Systems Engineer: [place] [address] XRay Report Signed Patient: MARIO RINCON MR#: [id number] : 1960 Acct:[id number] Age/Sex: 63 / M ADM Date: 01/15/24 Loc: EC Attending Dr: Solo Flood D.P.M. Ordering Physician: Solo Flood D.P.M. Date of Service: 01/15/24 Procedure(s): XR foot LT min 3V Accession Number(s): [id number] cc: Stevie Madsen; Solo Flood D.P.M. [place] [id number] Patient Name: SIDNEY RINCON MRN: [id number] date: 1960 Sex: M Assigned Patient Location: Current Patient Location: Accession/Order Numb er: [id number] Exam Date: 12:57 Report Date: 01/16/2024 08:16 At the request of: SOLO FLOOD Procedure: XR foot LT min 3V PROCEDURE: XR foot LT min 3V COMPARISON: None. HISTORY: LEFT FOOT PAIN FINDINGS: BONES:No acute fract ure or dislocation. Moderate plantar enthesopathic spurring of the calcaneus. Mi ld degenerative changes of the midfoot with marginal osteophyte formation SOFT TISSUES:Negativ e. No visible soft tissue swelling. EFFUSION:None visible. OTHER: Negative. X R/XR foot LT min 3V IMPRESSION: Moderate plantar ent hesopathic spurring Electronically authe nticated by: MARGARITA VIERA Date: 01/16/2024 08:16 Dictated By: Margarita Viera M.D. Signed By: 01/16/24817 DD/ 5 TD/TT: Computer Network And Systems Engineer: Reason For Referral Reason patient will call if he would like to go ahead with therapy Diagnosis 1 Plantar fascial fibr omatosis (M72.2) Referral Organization [facility] (P[facility]) Referring Provider First Name Solo Referring Provider Last Name Aleena Referring Provider Speciality Podiatry Referred Provider Specialty Physical Med icine and Rehabilitation Referral Priority Routine Medications Medication SIG (Take, Route, Frequency, Duration) Notes Start Date End Date Status Carvedilol 25 MG 1 tablet with food O rally Twice a day 01/15/2024 Active Meloxicam 15 MG TAKE 1 TABLET BY DILLON TH EVERY DAY FOR 30 DAYS for 30 Active amLODIPine Besylate 5 MG 1 tablet [...] Problem Status W/U Status Risk Notes Problem [id number] Plantar fascia l fibromatosis (M72.2) Active confirmed Problem Left foot pain (M79.672) Active confirmed Problem 46600769 Pulmonary hypertension, unspecified (I27.20) Active confirmed Vital Signs Heart Rate 83 /min 01/15/2024 Temperature 97.8 degrees Fahrenheit 01/15/2024 Respiratory Rate 18 /min 01/15/2024 Oximetry 99 % 01/15/2024 Height 68 in 01/15/2024 Weight 195 lbs 01/15/2024 BMI 29.65 kg/m2 01/15/2024 Encounters Encounter Location Date Provider Diagnosis [facility] (P[facility]) [address] [place] [address] [place] [address] 01/15/2024 Solo Flood Left foot pain M79.672 and Plantar [...] are needed at follow-up Plan Of Treatment Pending Test Test Name Order Date XR Foot LT (3 views) * 01/15/2024 XR foot LT min 3V 01/16/2024 Insurance Providers Payer Name Payer Address Payer Phone Subscriber Number Group Number Insured Name Patient Relationship to Insured Coverage Start Date Coverage End Date BCBS OUT OF STATE [address] [place] [phone] [id number] Sidney Rincon Self - patient is the insured Medical (General) History Medical History History ICD Code hypertension
--- OUTSIDE RECORDS SUMMARY | 2024-10-07 21:29 | XMS_ITS | CCD ---
Author Organization [facility] Care Team Providers Care Vice President Global Digital Marketing Name Role Phone GO CHAVES Attending Unavailable CHAVES, GO Admitting Unavailable PROVIDER, UNKNOWN Admitting Unavailable PROVIDER, UNKNOWN Attending Unavailable PROVIDER, UNKNOWN Admitting Unavailable PROVIDER, UNKNOWN Attending Unavailable PROVIDER, UNKNOWN Admitting Unavailable PROVIDER, UNKNOWN Attending Unavailable STEVIE MADSEN Primary Care Physician Cale, Stevie Unavailable CALE, DR HARDY Admitting [...] Medication Allergies] Propensity to adverse reactions (disorder) [facility] Repository Medications Current Medications Medication Drug [...] Basophils (Bld) [#/Vol] Automated basophil count 0.0-0.[address] [facility] Basophils/100 WBC Auto (Bld) on 08-07-2024 Basophils/100 WBC (Bld) Automated basophil % 0.2-2.[address] [facility] Cholesterol in LDL Calc [Mas s/Vol]on 08-07-2024 Cholesterol in LDL [Mass/Vol] Cholesterol in LDL [Mass/volume] in Serum or Plasma by calculation [facility] Comment on above: <100 mg/dl [id number] 0-129 mg/dl NEAR OR ABOVE [id number] mg/dl BORDERLINE [id number] mg/dl HIGH>190 mg/dl VERY HIGH Cholesterol in VLDL Calc [Ma ss/Vol]on 08-07-2024 Cholesterol in VLDL [Mass/Vol] Cholesterol in VLDL [Mass/volume] in Serum or Plasma by calculation [facility] Eosinophils/100 WBC Auto (Bl d)on 08-07-2024 Eosinophils/100 WBC (Bld) Automated eosinophil % 0.9-7.[address] [facility] Erythrocyte distribution wid th Auto (RBC) [Ratio]on 08-07-2024 Erythrocyte distribution width (RBC) [Ratio] Erythrocyte distribution width [Ratio] by Automated count 11.0-15.[address] [facility] Estimated glomerular filtrat ion rate (GFR) non- Americanon 08-07-2024 GFR/1.73 sq M.predicted among non-blacks MDRD (S/P/Bld) [Vol rate/Area] Estimated glomerular filtration rate (GFR) non- >=60 mL/min/1.73m [address] [facility] Globulin Calc (S) [Mass/Vol] on 08-07-2024 Globulin (S) [Mass/Vol] Serum globulin measurement by calculation (mass/volume) [facility] Hematocrit Auto (Bld) [Volum e fraction]on 08-07-2024 Hematocrit (Bld) [Volume fraction] Hematocrit [Volume Fraction] of Blood by Automated count 42.0-54.[address] [facility] Hemoglobin [Mass/volume] in Bloodon 08-07-2024 Hemoglobin (Bld) [Mass/Vol] Hemoglobin [Mass/volume] in Blood 14.0-18.[address] [facility] Laboratory - Chemistry and C hemistry - challengeon 08-07-2024 Albumin [Mass/Vol] 3.9 g/dL 3.4-5.0 [facility] ALP [Catalytic activity/Vol] 55 U/L 46-[address] [facility] ALT [Catalytic activity/Vol] 24 U/L 16-[address] [facility] AST [Catalytic activity/Vol] 18 U/L 15-[address] [facility] Bilirubin [Mass/Vol] 0.8 mg/dL 0.2-1.0 [facility] Calcium [Mass/Vol] 9.0 mg/dL 8.5-10.1 [facility] Chloride [Moles/Vol] 103 mmol/L 98-107 [facility] Cholesterol [Mass/Vol] 171 mg/dL <=[address] [facility] Cholesterol in HDL [Mass/Vol] 57 mg/dL 40-[address] [facility] Comment on above: > or =60 mg/dl - LOW CARDIOVASCULAR RISK<40 mg/dl - HIGH CARDIOVASCULAR RISK CO2 [Moles/Vol] 25.0 mmol/L 21.0-32.0 [facility] Creatinine [Mass/Vol] 1.06 mg/dL 0.70-1.[address] [facility] GFR/1.73 sq M.predicted MDRD (S/P/Bld) [Vol rate/Area] mL/min/{1.73_m2} >=60 mL/min/1.73m [address] [facility] Glucose [Mass/Vol] 95 mg/dL 74-106 [facility] Potassium [Moles/Vol] 4.4 mmol/L 3.5-5.[address] [facility] Protein [Mass/Vol] 7.0 g/dL 6.4-8.2 [facility] Sodium [Moles/Vol] 137 mmol/L 136-145 [facility] Triglyceride [Mass/Vol] 37 mg/dL <=[address] [facility] Urea nitrogen [Mass/Vol] 7.0 mg/dL 7.0-18.[address] [facility] Urea nitrogen/Creatinine [Mass ratio] 6.6 mg/mg [facility] Laboratory - Hematology and Cell countson 08-07-2024 Immature granulocytes/100 WBC (Bld) 0.3 % 0.0-0.[address] [facility] Leukocytes [#/volume] correc karyna for nucleated erythrocytes in Blood by Automated counon 08-07-2024 WBC corrected for nucl RBC Auto (Bld) [#/Vol] Leukocytes [#/volume] corrected for nucleated erythrocytes in Blood by Automated coun 4.0-11.[address] [facility] Lymphocytes Auto (Bld) [#/Vo l]on 08-07-2024 Lymphocytes (Bld) [#/Vol] Lymphocytes [#/volume] in Blood by Automated count 1.2-3.[address] [facility] Lymphocytes/100 WBC Auto (Bl d)on 08-07-2024 Lymphocytes/100 WBC (Bld) Lymphocytes/100 leukocytes in Blood by Automated count 20.5-60.[address] [facility] MCH Auto (RBC) [Entitic mass ]on 08-07-2024 MCH (RBC) [Entitic mass] MCH [Entitic mass] by Automated count 25.9-34.[address] [facility] MCHC Auto (RBC) [Mass/Vol]on 08-07-2024 MCHC (RBC) [Mass/Vol] MCHC [Mass/volume] by Automated count 29.9-35.[address] [facility] MCV Auto (RBC) [Entitic vol] on 08-07-2024 MCV (RBC) [Entitic vol] MCV [Entitic volume] by Automated count High 80.0-94.[address] [facility] Monocytes Auto (Bld) [#/Vol] on 08-07-2024 Monocytes (Bld) [#/Vol] Automated blood monocyte count 0.3-0.[address] [facility] Monocytes/100 WBC Auto (Bld) on 08-07-2024 Monocytes/100 WBC (Bld) Automated monocyte % 1.7-12.[address] [facility] Neutrophils Auto (Bld) [#/Vo l]on 08-07-2024 Neutrophils (Bld) [#/Vol] Neutrophils [#/volume] in Blood by Automated count 1.4-6.[address] [facility] Neutrophils/100 WBC Auto (Bl d)on 08-07-2024 Neutrophils/100 WBC (Bld) Automated neutrophil % 43.0-75.[address] [facility] No Panel Informationon 08-07 Eosinophils # (Auto) 0.4 10 3/uL 0.0-0.7 [facility] Immature Granulocyte # (Auto) 0.02 10 3/uL 0.00-0.[address] [facility] Prostate Specific Antigen Screen 0.90 ng/mL <=4.[address] [facility] Platelet mean volume Auto (B ld) [Entitic vol]on 08-07-2024 Platelet mean volume (Bld) [Entitic vol] Platelet mean volume [Entitic volume] in Blood by Automated count 9.5-13.[address] [facility] Platelets Auto (Bld) [#/Vol] on 08-07-2024 Platelets (Bld) [#/Vol] Platelets [#/volume] in Blood by Automated count 150-[address] [facility] RBC Auto (Bld) [#/Vol]on RBC (Bld) [#/Vol] Erythrocytes [#/volume] in Blood by Automated count Low 4.70-6.[address] [facility] Serum or plasma albumin/glob ulin mass ratioon 08-07-2024 Albumin/Globulin [Mass ratio] Serum or plasma albumin/globulin mass ratio [facility] Serum or plasma anion gap de terminationon 08-07-2024 Anion gap [Moles/Vol] Serum or plasma anion gap determination [facility] Serum or plasma total choles terol/high density lipoprotein (HDL) cholesterol mass shirley 08-07-2024 Cholesterol.total/Ch olesterol in HDL [Mass ratio] Serum or plasma total cholesterol/high density lipoprotein (HDL) cholesterol mass rat [facility] Comment on above: 3.3 - 4.4 LOW RISK4. 4 - 7.1 AVERAGE RISK7.1 - 11.0 MODERATE RISK>11.0 HIGH RISK Basophils Auto (Bld) [#/Vol] on 08-07-2023 Basophils (Bld) [#/Vol] 0.1 10 3/uL 0.0-0.[address] [facility] Basophils/100 WBC Auto (Bld) on 08-07-2023 Basophils/100 WBC (Bld) 1.3 % 0.2-2.[address] [facility] Cholesterol in LDL Calc [Mas s/Vol]on 08-07-2023 Cholesterol in LDL [Mass/Vol] 112.4 mg/dL [facility] Comment on above: <100 mg/dl [id number] 0-129 mg/dl NEAR OR ABOVE [id number] mg/dl BORDERLINE FMVC680-622 mg/dl HIGH>190 mg/dl VERY HIGH Cholesterol in VLDL Calc [Ma ss/Vol]on 08-07-2023 Cholesterol in VLDL [Mass/Vol] 8.6 mg/dL [facility] Eosinophils/100 WBC Auto (Bl d)on 08-07-2023 Eosinophils/100 WBC (Bld) 8.1 % 0.9-7.[address] [facility] Erythrocyte distribution wid th Auto (RBC) [Ratio]on 08-07-2023 Erythrocyte distribution width (RBC) [Ratio] 11.2 % 11.0-15.[address] [facility] Estimated glomerular filtrat ion rate (GFR) non- Americanon 08-07-2023 GFR/1.73 sq M.predicted among non-blacks MDRD (S/P/Bld) [Vol rate/Area] mL/min/{1.73_m2} >=[address] [facility] Globulin Calc (S) [Mass/Vol] on 08-07-2023 Globulin (S) [Mass/Vol] 3.3 g/dL [facility] Hematocrit Auto (Bld) [Volum e fraction]on 08-07-2023 Hematocrit (Bld) [Volume fraction] 42.8 % 42.0-54.[address] [facility] Hemoglobin [Mass/volume] in Bloodon 08-07-2023 Hemoglobin (Bld) [Mass/Vol] 14.4 g/dL 14.0-18.[address] [facility] Laboratory - Chemistry and C hemistry - challengeon 08-07-2023 Albumin [Mass/Vol] 3.5 g/dL 3.4-5.0 [facility] ALP [Catalytic activity/Vol] 61 U/L 46-[address] [facility] ALT [Catalytic activity/Vol] 31 U/L 16-[address] [facility] AST [Catalytic activity/Vol] 24 U/L 15-[address] [facility] Bilirubin [Mass/Vol] 0.5 mg/dL 0.2-1.0 [facility] Calcium [Mass/Vol] 8.7 mg/dL 8.5-10.1 [facility] Chloride [Moles/Vol] 103 mmol/L 98-107 [facility] Cholesterol [Mass/Vol] 179 mg/dL <=[address] [facility] Cholesterol in HDL [Mass/Vol] 58 mg/dL 40-[address] [facility] Comment on above: > or =60 mg/dl - LOW CARDIOVASCULAR RISK<40 mg/dl - HIGH CARDIOVASCULAR RISK CO2 [Moles/Vol] 26.8 mmol/L 21.0-32.0 [facility] Creatinine [Mass/Vol] 0.96 mg/dL 0.70-1.[address] [facility] GFR/1.73 sq M.predicted MDRD (S/P/Bld) [Vol rate/Area] mL/min/{1.73_m2} >=[address] [facility] Glucose [Mass/Vol] 105 mg/dL 74-106 [facility] Potassium [Moles/Vol] 4.4 mmol/L 3.5-5.[address] [facility] Protein [Mass/Vol] 6.8 g/dL 6.4-8.2 [facility] Sodium [Moles/Vol] 139 mmol/L 136-145 [facility] Triglyceride [Mass/Vol] 43 mg/dL <=[address] [facility] Urea nitrogen [Mass/Vol] 13.0 mg/dL 7.0-18.[address] [facility] Urea nitrogen/Creatinine [Mass ratio] 13.5 mg/mg [facility] Laboratory - Hematology and Cell countson 08-07-2023 Immature granulocytes/100 WBC (Bld) 0.2 % 0.0-0.[address] [facility] Leukocytes [#/volume] correc karyna for nucleated erythrocytes in Blood by Automated counon 08-07-2023 WBC corrected for nucl RBC Auto (Bld) [#/Vol] 4.7 10 3/uL 4.0-11.[address] [facility] Lymphocytes Auto (Bld) [#/Vo l]on 08-07-2023 Lymphocytes (Bld) [#/Vol] 1.6 10 3/uL 1.2-3.[address] [facility] Lymphocytes/100 WBC Auto (Bl d)on 08-07-2023 Lymphocytes/100 WBC (Bld) 33.2 % 20.5-60.[address] [facility] MCH Auto (RBC) [Entitic mass ]on 08-07-2023 MCH (RBC) [Entitic mass] 32.6 pg 25.9-34.[address] [facility] MCHC Auto (RBC) [Mass/Vol]on 08-07-2023 MCHC (RBC) [Mass/Vol] 33.6 g/dL 29.9-35.[address] [facility] MCV Auto (RBC) [Entitic vol] on 08-07-2023 MCV (RBC) [Entitic vol] 96.8 fL 80.0-94.[address] [facility] Monocytes Auto (Bld) [#/Vol] on 08-07-2023 Monocytes (Bld) [#/Vol] 0.5 10 3/uL 0.3-0.[address] [facility] Monocytes/100 WBC Auto (Bld) on 08-07-2023 Monocytes/100 WBC (Bld) 10.7 % 1.7-12.[address] [facility] Neutrophils Auto (Bld) [#/Vo l]on 08-07-2023 Neutrophils (Bld) [#/Vol] 2.2 10 3/uL 1.4-6.[address] [facility] Neutrophils/100 WBC Auto (Bl d)on 08-07-2023 Neutrophils/100 WBC (Bld) 46.5 % 43.0-75.[address] [facility] No Panel Informationon 08-06 Eosinophils # (Auto) 0.4 10 3/uL 0.0-0.7 [facility] Immature Granulocyte # (Auto) 0.01 10 3/uL 0.00-0.[address] [facility] Prostate Specific Antigen Screen 0.58 ng/mL <=4.[address] [facility] Platelet mean volume Auto (B ld) [Entitic vol]on 08-07-2023 Platelet mean volume (Bld) [Entitic vol] 10.4 fL 9.5-13.[address] [facility] Platelets Auto (Bld) [#/Vol] on 08-07-2023 Platelets (Bld) [#/Vol] 194 10 3/uL 150-[address] [facility] RBC Auto (Bld) [#/Vol]on RBC (Bld) [#/Vol] 4.42 10 6/uL 4.70-6.10 [facility] Serum or plasma albumin/glob ulin mass ratioon 08-07-2023 Albumin/Globulin [Mass ratio] 1.1 {ratio} [facility] Serum or plasma anion gap de terminationon 08-07-2023 Anion gap [Moles/Vol] 13.6 mmol/L [facility] Serum or plasma total choles terol/high density lipoprotein (HDL) cholesterol mass shirley 08-07-2023 Cholesterol.total/Ch olesterol in HDL [Mass ratio] 3.1 {ratio} [facility] Comment on above: 3.3 - 4.4 LOW RISK4. 4 - 7.1 AVERAGE RISK7.1 - 11.0 MODERATE RISK>11.0 HIGH RISK Registrationon 04-01-2023 Registration [id number] #1.00TIFF Normal [facility] In office Testingon 03-28-20 23 In office Testing [id number]# 1.00TIFF Normal [facility] Registrationon 03-28-2023 Registration [id number] #1.00TIFF Normal [facility] US CAROTID ART BILon 023 US [...] by: MARGARITA VIERA Date: 2022-08-25 08:20 Normal [facility] ECHOCARDIO M/2D COMPLETEon 0 08-24-2022 ECHOCARDIO M/2D COMPLETE Patient: REJI PINON Exam Date: 08/24/2022 : 1960 Gender:M Ordering : DR STEVIE MADSEN D.O. Admission #: [id number] Family : Order #: [id number] CLICK HERE TO VIEW EXAM ECHOCARDIOGRAM REPORT [...] M.D. on 08/24/2022 at 19:28 Normal [facility] CBC AUTO DIFFon 08-03-2022 BASO # 0.1 103/ul Normal 0.0-0.1 [facility] Comment on above: Performed By: #### C BC #### [facility] [address] [address] [address] Christiano William Basophils/100 WBC (Bld) 1.2 % Normal 0.2-2.0 [facility] Comment on above: Performed By: #### C BC #### [facility] [address] [place] [address] Dr. Christiano William EO # 0.3 103/ul Normal 0.0-0.7 [facility] Comment on above: Performed By: #### C BC #### [facility] [address] [place] [address] Dr. Christiano William Eosinophils/100 WBC (Bld) 6.6 % Normal 0.9-7.0 [facility] Comment on above: Performed By: #### C BC #### [facility] [address] [place] [address] Dr. Christiano William Erythrocyte distribution width (RBC) [Ratio] 11.3 % Normal 11.0-15.0 [facility] Comment on above: Performed By: #### C BC #### [facility] [address] [place] [address] Dr. Christiano William Hematocrit (Bld) [Volume fraction] 44.2 % Normal 42.0-54.0 [facility] Comment on above: Performed By: #### C BC #### [facility] [address] [place] [address] Dr. Christiano William Hemoglobin (Bld) [Mass/Vol] 15.4 g/dL Normal 14.0-18.0 [facility] Comment on above: Performed By: #### C BC #### [facility] [address] [place] [address] Dr. Christiano William IG # 0.01 10e3/ul Normal 0.00-0.03 [facility] Comment on above: Performed By: #### C BC #### [facility] [address] [place] [address] Dr. Christiano William IG % 0.2 % Normal 0.0-0.5 [facility] Comment on above: Performed By: #### C BC #### [facility] [address] [place] [address] Dr. Christiano William LYMPH # 1.5 103/ul Normal 1.2-3.8 [facility] Comment on above: Performed By: #### C BC #### [facility] [address] [place] [address] Dr. Christiano William Lymphocytes/100 WBC (Bld) 35.4 % Normal 20.5-60.0 [facility] Comment on above: Performed By: #### C BC #### [facility] [address] [place] [address] Dr. Christiano William MANUAL DIFF REQ NO Normal [facility] Comment on above: Performed By: #### C BC #### [facility] [address] [place] [address] Dr. Christiano William MCH (RBC) [Entitic mass] 33.0 pg Normal 25.9-34.0 [facility] Comment on above: Performed By: #### C BC #### [facility] [address] [place] [address] Dr. Christiano William MCHC (RBC) [Mass/Vol] 34.8 g/dL Normal 29.9-35.2 [facility] Comment on above: Performed By: #### C BC #### [facility] [address] [place] [address] Dr. Christiano William MCV (RBC) [Entitic vol] 94.6 fL Critically high 80.0-94.0 [facility] Comment on above: Performed By: #### C BC #### [facility] [address] [place] [address] Dr. Christiano William MONO # 0.5 103/ul Normal 0.3-0.8 [facility] Comment on above: Performed By: #### C BC #### [facility] [address] [place] [address] Dr. Christiano William Monocytes/100 WBC (Bld) 11.2 % Normal 1.7-12.0 [facility] Comment on above: Performed By: #### C BC #### [facility] [address] [place] [address] Dr. Christiano William NEUT # 1.9 103/ul Normal 1.4-6.5 [facility] Comment on above: Performed By: #### C BC #### [facility] [address] [address] [address] Christiano William Neutrophils/100 WBC (Bld) 45.4 % Normal 43.0-75.0 [facility] Comment on above: Performed By: #### C BC #### [facility] [address] [address] [address] Christiano William Platelet mean volume (Bld) [Entitic vol] 10.0 fL Normal 9.5-13.5 [facility] Comment on above: Performed By: #### C BC #### [facility] [address] [address] [address] Christiano William PLT 222 103/ul Normal 150-450 [facility] Comment on above: Performed By: #### C BC #### [facility] [address] [place] [address] Dr. Christiano William RBC 4.67 106/ul Critically low 4.70-6.10 [facility] Comment on above: Performed By: #### C BC #### [facility] [address] [address] [address] Christiano William WBC 4.1 103/ul Normal 4.0-11.0 [facility] Comment on above: Performed By: #### C BC #### [facility] [address] [place] [address] Dr. Christiano William LIPID PROFILEon 08-03-2022 CHOL-HDL RATIO NORM SEE BELOW Normal [facility] Comment on above: Result Comment: 3.3 - 4.4 LOW RISK 4.4 - 7.1 AVERAGE RISK 7.1 - 11.0 MODERATE RISK >11.0 HIGH RISK Performed By: #### L IPID, CMP #### [facility] [address] [address] [address] Christiano William Cholesterol [Mass/Vol] 177 mg/dL Normal <=200 [facility] Comment on above: Performed By: #### L IPID, CMP #### [facility] [address] [address] [address] Christiano William Cholesterol in HDL [Mass/Vol] 63 mg/dL Critically high 40-60 [facility] Comment on above: Performed By: #### L IPID, CMP #### [facility] [address] [address] [address] Christiano William Cholesterol in LDL [Mass/Vol] 106.8 mg/dL Normal [facility] Comment on above: Performed By: #### L IPID, CMP #### [facility] [address] [address] [address] Christiano William Cholesterol.total/Ch olesterol in HDL [Mass ratio] 2.8 {ratio} Normal [facility] Comment on above: Performed By: #### L IPID, CMP #### [facility] [address] [address] [address] Christiano William HDL NORMAL > or = 60 mg/dl - LO W CARDIOVASCULAR RISK <40 mg/dl - HIGH CARDIOVASCULAR RISK Normal [facility] Comment on above: Performed By: #### L IPID, CMP #### [facility] [address] [address] [address] Christiano William LDL CALC NORMAL SEE BELOW Normal [facility] Comment on above: Result Comment: <100 mg/dl OPTIMAL 100 - 129 mg/dl NEAR OR ABOVE OPTIMAL 130 - 159 mg/dl BORDERLINE HIGH 160 - 189 mg/dl HIGH >190 mg/dl VERY HIGH Performed By: #### L IPID, CMP #### [facility] [address] [place] [address] Dr. Christiano William Triglyceride [Mass/Vol] 36 mg/dL Normal <=150 [facility] Comment on above: Performed By: #### L IPID, CMP #### [facility] [address] [place] [address] Dr. Christiano William VLDL CALC 7.2 mg/dL Normal [facility] Comment on above: Performed By: #### L IPID, CMP #### [facility] [address] [place] [address] Dr. Christiano William PROF 14(COMP METB)on 023 Albumin [Mass/Vol] 3.7 g/dL Normal 3.4-5.0 [facility] Comment on above: Performed By: #### L IPID, CMP ####[facility] [address] [id number] Christiano William Albumin/Globulin [Mass ratio] 1.1 {ratio} Normal [facility] Comment on above: Performed By: #### L IPID, CMP ####[facility] [address] [address]Dr. Christiano William ALP [Catalytic activity/Vol] 53 U/L Normal 46-116 [facility] Comment on above: Performed By: #### L IPID, CMP ####[facility] [address] [address]Dr. Christiano William ALT [Catalytic activity/Vol] 28 U/L Normal 16-63 [facility] Comment on above: Performed By: #### L IPID, CMP ####[facility] [address] [address]Dr. Christiano William Anion gap [Moles/Vol] 12.8 mmol/L Normal [facility] Comment on above: Performed By: #### L IPID, CMP ####[facility] [address] [address]Dr. Christiano William AST [Catalytic activity/Vol] 22 U/L Normal 15-37 [facility] Comment on above: Performed By: #### L IPID, CMP ####[facility] [address] [address]Dr. Christiano William Bilirubin [Mass/Vol] 0.5 mg/dL Normal 0.2-1.0 [facility] Comment on above: Performed By: #### L IPID, CMP ####[facility] [address] [id number][address] Christiano William Calcium [Mass/Vol] 8.7 mg/dL Normal 8.5-10.1 [facility] Comment on above: Performed By: #### L IPID, CMP ####[facility] [address] [address]Dr. Christiano William Chloride [Moles/Vol] 103 mmol/L Normal 98-107 [facility] Comment on above: Performed By: #### L IPID, CMP ####[facility] [address] [id number][address] Christiano William CO2 [Moles/Vol] 26.7 mmol/L Normal 21.0-32.0 [facility] Comment on above: Performed By: #### L IPID, CMP ####[facility] [address] [id number][address] Christiano Stewart Creatinine [Mass/Vol] 1.02 mg/dL Normal 0.70-1.30 [facility] Comment on above: Performed By: #### L IPID, CMP ####[facility] [address] [address]Dr. Christiano William EGFR-AF MALDIVIAN >60 Normal >=60 [facility] Comment on above: Performed By: #### L IPID, CMP ####[facility] [address] [address]Dr. Christiano Stewart EGFR-NON AF MALDIVIAN >60 Normal >=60 [facility] Comment on above: Performed By: #### L IPID, CMP ####[facility] [address] [address]Dr[address] Christiano Stewart Globulin (S) [Mass/Vol] 3.5 g/dL Normal [facility] Comment on above: Performed By: #### L IPID, CMP ####[facility] [address] [id number][address] Christiano Stewart Glucose [Mass/Vol] 110 mg/dL Critically high 74-106 [facility] Comment on above: Performed By: #### L IPID, CMP ####[facility] [address] [id number][address] Christiano William Potassium [Moles/Vol] 4.5 mmol/L Normal 3.5-5.1 [facility] Comment on above: Performed By: #### L IPID, CMP ####[facility] [address] [id number][address] Christiano Stewart Protein [Mass/Vol] 7.2 g/dL Normal 6.4-8.2 [facility] Comment on above: Performed By: #### L IPID, CMP ####[facility] [address] [place] [address]Dr[place] William Sodium [Moles/Vol] 138 mmol/L Normal 136-145 [facility] Comment on above: Performed By: #### L IPID, CMP ####[facility] W[address]qmujto[address] [place] [address]Dr. Christiano William Urea nitrogen [Mass/Vol] 9.0 mg/dL Normal 7.0-18.0 [facility] Comment on above: Performed By: #### L IPID, CMP ####[facility] [address]cl[address] [place] [address]Dr. Christiano William Urea nitrogen/Creatinine [Mass ratio] 8.8 mg/mg Normal [facility] Comment on above: Performed By: #### L IPID, CMP ####[facility] [address] [place], [place] [address]Dr[place]iana William In office Testingon 07-05-19 23 In office Testing [id number]:127 Normal [facility] CBC AUTO DIFFon 09-13-2021 BASO # 0.1 103/ul Normal 0.0-0.1 [facility] Comment on above: Performed By: #### C BC #### [facility] [address] [place] [address] Dr. Christiano William Basophils/100 WBC (Bld) 1.2 % Normal 0.2-2.0 [facility] Comment on above: Performed By: #### C BC #### [facility] [address] [place] [address] Dr. Christiano William EO # 0.1 103/ul Normal 0.0-0.7 [facility] Comment on above: Performed By: #### C BC #### [facility] [address] [place] [address] Dr. Christiano William Eosinophils/100 WBC (Bld) 2.6 % Normal 0.9-7.0 [facility] Comment on above: Performed By: #### C BC #### [facility] [address] [place] [address] Dr. Christiano William Erythrocyte distribution width (RBC) [Ratio] 12.3 % Normal 11.0-15.0 [facility] Comment on above: Performed By: #### C BC #### [facility] [address] [place] [address] Dr. Christiano William Hematocrit (Bld) [Volume fraction] 40.7 % Critically low 42.0-54.0 [facility] Comment on above: Performed By: #### C BC #### [facility] [address] [place] [address] Dr. Christiano William Hemoglobin (Bld) [Mass/Vol] 14.1 g/dL Normal 14.0-18.0 [facility] Comment on above: Performed By: #### C BC #### [facility] [address] [place] [address] Dr. Christiano William IG # 0.01 10e3/ul Normal 0.00-0.03 [facility] Comment on above: Performed By: #### C BC #### [facility] [address] [place] [address] Dr. Christiano William IG % 0.2 % Normal 0.0-0.5 [facility] Comment on above: Performed By: #### C BC #### [facility] [address] [place] [address] Dr. Christiano William LYMPH # 1.0 103/ul Critically low 1.2-3.8 [facility] Comment on above: Performed By: #### C BC #### [facility] [address] [place] [address] Dr. Christiano William Lymphocytes/100 WBC (Bld) 24.4 % Normal 20.5-60.0 [facility] Comment on above: Performed By: #### C BC #### [facility] [address] [place] [address] Dr. Christiano William MANUAL DIFF REQ NO Normal [facility] Comment on above: Performed By: #### C BC #### [facility] [address] [place] [address] [address] Christiano William MCH (RBC) [Entitic mass] 33.7 pg Normal 25.9-34.0 [facility] Comment on above: Performed By: #### C BC #### [facility] [address] [place] [address] [address] Christiano William MCHC (RBC) [Mass/Vol] 34.6 g/dL Normal 29.9-35.2 [facility] Comment on above: Performed By: #### C BC #### [facility] [address] [place] [address] [address] Christiano William MCV (RBC) [Entitic vol] 97.4 fL Critically high 80.0-94.0 [facility] Comment on above: Performed By: #### C BC #### [facility] [address] [place] [address] Dr. Christiano William MONO # 0.5 103/ul Normal 0.3-0.8 [facility] Comment on above: Performed By: #### C BC #### [facility] [address] [place] [address] Dr. Christiano William Monocytes/100 WBC (Bld) 10.5 % Normal 1.7-12.0 [facility] Comment on above: Performed By: #### C BC #### [facility] [address] [place] [address] [address] Christiano William NEUT # 2.6 103/ul Normal 1.4-6.5 [facility] Comment on above: Performed By: #### C BC #### [facility] [address] [place] [address] Dr. Christiano William Neutrophils/100 WBC (Bld) 61.1 % Normal 43.0-75.0 [facility] Comment on above: Performed By: #### C BC #### [facility] [address] [place] [address] Dr. Christiano William Platelet mean volume (Bld) [Entitic vol] 9.9 fL Normal 9.5-13.5 [facility] Comment on above: Performed By: #### C BC #### [facility] [address] [place] [address] [address] Christiano William PLT 241 103/ul Normal 150-450 [facility] Comment on above: Performed By: #### C BC #### [facility] [address] [place] [address] [address] Christiano William RBC 4.18 106/ul Critically low 4.70-6.10 [facility] Comment on above: Performed By: #### C BC #### [facility] [address] [place] [address] [address] Christiano William WBC 4.3 103/ul Normal 4.0-11.0 [facility] Comment on above: Performed By: #### C BC #### [facility] [address] [place] [address] [address] Christiano William PROF CHEM 8 (BAS METB)on Anion gap [Moles/Vol] 16.5 mmol/L Normal [facility] Comment on above: Performed By: #### B MP ####[facility] [address] [place] [address]Dr[place] William Calcium [Mass/Vol] 9.1 mg/dL Normal 8.5-10.1 [facility] Comment on above: Performed By: #### B MP ####[facility] [address]zbpy[address] [place] [address]Dr[place] William Chloride [Moles/Vol] 104 mmol/L Normal 98-107 [facility] Comment on above: Performed By: #### B MP ####[facility] [address]ebbk28[address] [place] [address]Dr[place] William CO2 [Moles/Vol] 22.3 mmol/L Normal 21.0-32.0 [facility] Comment on above: Performed By: #### B MP ####[facility] V[address]xdw5[address] [place] [address]Dr[place] William Creatinine [Mass/Vol] 0.97 mg/dL Normal 0.70-1.30 [facility] Comment on above: Performed By: #### B MP ####[facility] [address]qv[address] [place] [address]Dr. Christiano William EGFR-AF MALDIVIAN >60 Normal >=60 [facility] Comment on above: Performed By: #### B MP ####[facility] [address] [place] [address]Dr. Christiano William EGFR-NON AF MALDIVIAN >60 Normal >=60 [facility] Comment on above: Performed By: #### B MP ####[facility] [address] [place] [address]Dr. Christiano William Glucose [Mass/Vol] 100 mg/dL Normal 74-106 [facility] Comment on above: Performed By: #### B MP ####[facility] [address] [place], [place] [address]Dr. Christiano Willima Potassium [Moles/Vol] 4.8 mmol/L Normal 3.5-5.1 [facility] Comment on above: Performed By: #### B MP ####[facility] [address] [place], [place] [address]Dr. Christiano Stewart Sodium [Moles/Vol] 138 mmol/L Normal 136-145 [facility] Comment on above: Performed By: #### B MP ####[facility] [address]co[address] [place], [place] [address]Dr. Sravanthisheldon Stewart Urea nitrogen [Mass/Vol] 8.0 mg/dL Normal 7.0-18.0 [facility] Comment on above: Performed By: #### B MP ####[facility] [address] [place], [place] [address]Dr. Sravanthisheldon Stewart Urea nitrogen/Creatinine [Mass ratio] 8.2 mg/mg Normal [facility] Comment on above: Performed By: #### B MP ####[facility] [address]isyur[address] [place], [place] [address]Dr. Sravanthisheldon Stewart PROTIMEon 09-13-2021 INR Coag (PPP) [Relative time] 0.97 {INR} Normal [facility] Comment on above: Performed By: #### P T, PTT #### [facility] [address] [place] [address] Dr. Christiano William INR GUIDELINES SEE BELOW Normal [facility] Comment on above: Result Comment: DALLIN RED INR: 2.0 - 3.0 CONDITIONS NOT LISTED BELOW 2.5 - 3.5 FOR PROSTHETIC HEART VALVE REPLACEMENT 2.5 - 3.5 RECURRENT THROMBOSIS Performed By: #### P T, PTT #### [facility] [address] [place] [address] Dr. Christiano William PT Coag (PPP) [Time] 10.5 s Normal 9.0-11.6 [facility] Comment on above: Performed By: #### P T, PTT #### [facility] [address] [place] [address] Dr. Christiano William PTTon 09-13-2021 aPTT Coag (Bld) [Time] 29.0 s Normal 22.3-36.2 [facility] Comment on above: Performed By: #### P T, PTT #### [facility] [address] [place] [address] Dr. Christiano William BASIC METABOLIC PANELon Anion gap [Moles/Vol] 12 mmol/L Normal 10-20 [facility] Comment on above: Performed By: #### C H8, ETOH #### [facility] [address] [place] [address], Calcium [Mass/Vol] 8.0 mg/dL Low 8.4-10.4 [facility] Comment on above: Performed By: #### C H8, ETOH #### [facility] [address] [place] [address], Chloride [Moles/Vol] 105 mmol/L Normal 97-111 [facility] Comment on above: Performed By: #### C H8, ETOH #### [facility] [address] [place] [address], CO2 [Moles/Vol] 20 mmol/L Low 21-30 [facility] Comment on above: Performed By: #### C H8, ETOH #### [facility] [address] [place] [address], Creatinine [Mass/Vol] 0.81 mg/dL Normal 0.80-1.[address] [facility] Comment on above: Performed By: #### Ronaldo Guevara8, ETOH #### [facility] [address] [place] [address], ESTIMATED GFR (CKD-EPI) 97 mL/min/1.73sqm Normal >=60 [facility] Comment on above: Performed By: #### Ronaldo Guevara8, ETOH #### [facility] [address] [place] [address], Glucose [Mass/Vol] 86 mg/dL Normal 80-116 [facility] Comment on above: Performed By: #### Ronaldo Kaur, ETOH #### [facility] [address] [place] [address], Potassium [Moles/Vol] 4.0 mmol/L Normal 3.3-5.[address] [facility] Comment on above: Performed By: #### Ronaldo Kaur, ETOH #### [facility] [address] [place] [address], Sodium [Moles/Vol] 133 mmol/L Low 135-148 [facility] Comment on above: Performed By: #### Ronaldo Kaur, ETOH #### [facility] [address] [place] [address], Urea nitrogen [Mass/Vol] 9 mg/dL Normal 8-[address] [facility] Comment on above: Performed By: #### Ronaldo Guevara8, ETOH #### [facility] [address] [place] [address], CBC WITH DIFFERENTIALon 11-0 -2020 Basophils (Bld) [#/Vol] 0.02 10*3/uL Normal 0.00-0.[address] [facility] Comment on above: Performed By: #### Ronaldo BCDSAT ####[facility] [id number] [place], [place], Basophils/100 WBC (Bld) 0.2 % Normal <=1.[address] [facility] Comment on above: Performed By: #### Ronaldo BLANCHARDDSAT ####[facility] [id number] [place], [place], Eosinophils (Bld) [#/Vol] 0.05 10*3/uL Normal 0.00-0.[address] [facility] Comment on above: Performed By: #### C BCDSAT ####[facility] [id number] [place], Eosinophils/100 WBC (Bld) 0.5 % Normal 0.1-4.[address] [facility] Comment on above: Performed By: #### C BCDSAT ####[facility] [id number] [place], [place], Erythrocyte distribution width (RBC) [Ratio] 12.0 % Normal 11.5-14.[address] [facility] Comment on above: Performed By: #### C BCDSAT ####[facility] [id number] [place] [address], Hematocrit (Bld) [Volume fraction] 36.0 % Low 41.0-53.0 [facility] Comment on above: Performed By: #### C BCDSAT ####[facility] [id number] [place], Hemoglobin (Bld) [Mass/Vol] 12.3 g/dL Low 13.9-16.[address] [facility] Comment on above: Performed By: #### C BCDSAT ####[facility] [id number] [place], Lymphocytes (Bld) [#/Vol] 0.56 10*3/uL Low 1.00-4.[address] [facility] Comment on above: Performed By: #### C BCDSAT ####[facility] [id number] [place], Lymphocytes/100 WBC (Bld) 5.9 % Low 24.0-44.[address] [facility] Comment on above: Performed By: #### C BCDSAT ####[facility] [id number] [place], MCH (RBC) [Entitic mass] 33.4 pg Normal 26.0-34.0 [facility] Comment on above: Performed By: #### C BCDSAT ####S PATHOLOGY [id number] [place], MCHC (RBC) [Mass/Vol] 34.1 g/dL Normal 32.0-35.[address] [facility] Comment on above: Performed By: #### C BCDSAT ####S PATHOLOGY [id number] [place], MCV (RBC) [Entitic vol] 98 fL Normal 80-100 [facility] Comment on above: Performed By: #### C BCDSAT ####[facility] [id number] [place], MONOCYTE DISTRIBUTION WIDTH 16 Normal <=20 The [facility] Comment on above: Performed By: #### C BCDSAT ####[facility] [id number] [place], Monocytes (Bld) [#/Vol] 0.48 10*3/uL Normal 0.20-1.00 [facility] Comment on above: Performed By: #### C BCDSAT ####[facility] [id number] [place], Monocytes/100 WBC (Bld) 5.1 % Normal 2.0-11.[address] [facility] Comment on above: Performed By: #### C BCDSAT ####[facility] [id number] [place], Neutrophils (Bld) [#/Vol] 8.38 10*3/uL High 1.50-8.00 [facility] Comment on above: Performed By: #### C BCDSAT ####S PATHOLOGY [id number] [place], Neutrophils/100 WBC (Bld) 88.4 % High 31.0-76.[address] [facility] Comment on above: Performed By: #### C BCDSAT ####[facility] [id number] [place], Platelet mean volume (Bld) [Entitic vol] 8.7 fL Normal 7.5-11.2 The [facility] Comment on above: Performed By: #### C BCDSAT ####[facility] [id number] [place], Platelets (Bld) [#/Vol] 182 10*3/uL Normal 150-[address] [facility] Comment on above: Performed By: #### C BCDSAT ####[facility] [id number] [place], RBC (Bld) [#/Vol] 3.67 10*6/uL Low 4.50-5.90 The [facility] Comment on above: Performed By: #### C BCDSAT ####[facility] [id number] [place], WBC (Bld) [#/Vol] 9.5 10*3/uL Normal 4.5-11.5 The [facility] Comment on above: Performed By: #### C BCDSAT ####[facility] [id number] [place], [place], CT HEAD W/O CONTRASTon 02-20 CT [...] Left scalp hematoma. MACRO: None Normal [facility] Consultson 02-20-2021 Computer Systems Manager Authentication Interface Message Text NEUROSURGERY CRANIAL TRAUMA [...] or concerns. Mala Duncan PA-C Neurosurgery Pager [phone] [facility] ED Noteson 02-20-2021 Computer Systems Manager Authentication Interface Message Text Patient up in wheelchair and refusing to get back into bed. Normal The [facility] ED Provider Noteson 02-21-20 Computer Systems Manager Authentication Interface Message Text HISTORY OF PRESENT [...] with arterial bleeding. Patient initially seen at [facility]. Patient was found to have a subarachnoid hemorrhage at the OSH. Cervical spine was cleared. Laceration repair of the head wound was performed. Patient refused transfer to [facility] and was combative and required medical sedation with 70 mg of ketamine and 4 mg of versed by [employer]. Pre hospital information: patient placed in c-collar. [...] Palpable bilateral PT Spine precautions: C-Collar Total [place] Coma Scale: 13 Eyes: eyes open to [...] --- (more content not included)... Normal [facility] ED Triage Noteson 02-20-2021 Computer Systems Manager Authentication Interface Message Text Prehospital Medications: See [facility] documentation for medication information. [employer] gave patient 70mg Ketamine, and 4mg versed for being combative. Normal [facility] Computer Systems Manager Authentication Interface Message Text Patient was drinking this evening and fell down an unknown amount of stairs. Patient had a +LOC for about 5 minutes according to family. Patient was a tranfers from [facility] [place] Normal [facility] ETHANOL, SERUMon 02-20-2021 Ethanol [Mass/Vol] 114 mg/dL High None Detected [facility] Comment on above: Performed By: #### C H8, ETOH #### [facility] [address] [place], [place], HIV1 HIV2 AGAB SCRNon 2020 HIV AG-AB SCREEN Non-Reactive Normal Non-Reactive [facility] Comment on above: Order Comment: HIV I nformation: ???[place] Rev. code 3701.243(E):This information has been disclosed [...] hiv2 agab scrn ####[facility] [id number] [place], [place], LACTIC ACIDon 02-20-2021 CR LACT 1.9 mmol/L Normal 0.5-2.0 [facility] Comment on above: Performed By: #### L ACT #### [facility] [address] [place], [place], PARTIAL THROMBOPLASTIN TIMEo n 02-20-2021 aPTT Coag (Bld) [Time] 23 s Low 25-37 [facility] Comment on above: Performed By: #### A PTT, PT #### [facility] [address] [place], [place], PROTHROMBIN TIME AND INRon 1 04-22-2020 INR Coag (PPP) [Relative time] 1.10 {INR} Normal 0.90-1.10 [facility] Comment on above: Performed By: #### A PTT, PT #### [facility] [address] [place], [place], PT Coag (PPP) [Time] 12.2 s Normal 9.7-12.9 [facility] Comment on above: Performed By: #### A PTT, PT #### [facility] [address] [place], [place], Progress Noteson 02-20-2021 Computer Systems Manager Authentication Interface Message Text CAT 2: Fall [...] left a voicemail for pt's Grecia Pinon [phone] providing an update. 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 [employer]CR[employer]ING ED Manager Business Intelligence Pager: [phone] Normal [facility] TYPE AND SCREENon 02-20-2021 ABO and Rh group Nom (Bld) Blood group O Rh(D) positive Normal [facility] Comment on above: Performed By: #### T S #### [facility] [address] [place], [place], ABO and Rh group Nom (Bld) No Previous Results Normal [facility] Comment on above: Performed By: #### T S #### [facility] [address] [place], [place], ABSC INT Negative Normal [facility] Comment on above: Performed By: #### T S #### S [facility] [address] [place] [address], Vital Signs Date Time Vital Sign Value Performing Clinician Facility 08-14-2024 14:40-0400 Body height 172.72 cm [facility] 08-14-2024 14:40-0400 Body mass index (BMI) [Ratio] 30.2 kg/m2 [facility] 08-14-2024 14:40-0400 Body weight 90.26 kg [facility] 08-14-2024 14:40-0400 Diastolic blood pressure 74 mm[Hg] [facility] 08-14-2024 14:40-0400 Heart rate 78 /min [facility] 08-14-2024 14:40-0400 Respiratory rate 12 /min [facility] 08-14-2024 14:40-0400 Systolic blood pressure 108 mm[Hg] [facility] 02-14-2024 14:33-0400 Body height 172.72 cm [facility] 02-14-2024 14:33-0400 Body mass index (BMI) [Ratio] 31.1 kg/m2 [facility] 02-14-2024 14:33-0400 Body temperature 97.3 [degF] [facility] 02-14-2024 14:33-0400 Body weight 92.98 kg [facility] 02-14-2024 14:33-0400 Diastolic blood pressure 70 mm[Hg] [facility] 02-14-2024 14:33-0400 Heart rate 80 /min [facility] 02-14-2024 14:33-0400 Systolic blood pressure 118 mm[Hg] [facility] 08-13-2023 08:41-0400 Body height 172.72 cm [facility] 08-13-2023 08:41-0400 Body mass index (BMI) [Ratio] 31.3 kg/m2 [facility] 08-13-2023 08:41-0400 Body weight 93.49 kg [facility] 08-13-2023 08:41-0400 Diastolic blood pressure 88 mm[Hg] [facility] 08-13-2023 08:41-0400 Heart rate 71 /min [facility] 08-13-2023 08:41-0400 Respiratory rate 12 /min [facility] 08-13-2023 08:41-0400 Systolic blood pressure 139 mm[Hg] [facility] 03-29-2023 14:30-0500 Body height 172.72 cm Stevie Ball Other [facility] Other 03-29-2023 14:30-0500 Body mass index (BMI) [Ratio] 30.16 kg/m2 Stevie Ball Other [facility] Other 03-29-2023 14:30-0500 Body weight 89.99 kg Stevie Ball Other [facility] Other 03-29-2023 14:30-0500 Diastolic blood pressure 75 mm[Hg] Stevie Ball Other [facility] Other 03-29-2023 14:30-0500 Respiratory rate 12 /min Stevie Ball Other [facility] Other 03-29-2023 14:30-0500 Systolic blood pressure 109 mm[Hg] Stevie Ball Other [facility] Other 11-19-2022 15:30-0400 Body height 172.72 cm Stevie Ball Other [facility] Other 11-19-2022 15:30-0400 Body mass index (BMI) [Ratio] 28.73 kg/m2 Stevie Ball Other [facility] Other 11-19-2022 15:30-0400 Body weight 85.73 kg Stevie Ball Other [facility] Other 11-19-2022 15:30-0400 Diastolic blood pressure 102 mm[Hg] Stevie Ball Other [facility] Other 11-19-2022 15:30-0400 Respiratory rate 12 /min Stevie Ball Other [facility] Other 11-19-2022 15:30-0400 Systolic blood pressure 156 mm[Hg] Stevie Ball Other [facility] Other 08-08-2022 16:30-0400 Body height 172.72 cm Stevie Ball Other [facility] Other 08-08-2022 16:30-0400 Body mass index (BMI) [Ratio] 29.56 kg/m2 Stevie Ball Other [facility] Other 08-08-2022 16:30-0400 Body weight 88.18 kg Stevie Ball Other [facility] Other 08-08-2022 16:30-0400 Diastolic blood pressure 95 mm[Hg] Stevie Ball Other [facility] Other 08-08-2022 16:30-0400 Respiratory rate 12 /min Stevie Ball Other [facility] Other 08-08-2022 16:30-0400 Systolic blood pressure 143 mm[Hg] Stevie Ball Other [facility] Other 09-04-2021 14:11-0400 Blood Pressure Location Bora LOYD [facility] 09-04-2021 14:11-0400 Diastolic blood pressure 94 mm[Hg] Bora LOYD [facility] 09-04-2021 14:11-0400 Heart rate 104 /min [facility]-04-2021 14:11-0400 Systolic blood pressure 139 mm[Hg] [facility] 08-18-2021 13:54-0400 Blood Pressure Location Janusz BRADY [facility] [place] 08-18-2021 13:54-0400 Diastolic blood pressure 92 mm[Hg] Janusz NILL [facility] [place] 08-18-2021 13:54-0400 Heart rate 80 /min Janusz NILL [facility] [place] 08-18-2021 13:54-0400 Respiratory rate 16 /min Janusz NILL [facility] [place] 08-18-2021 13:54-0400 Systolic blood pressure 130 mm[Hg] Janusz NILL [facility] [place] Encounters Encounter Date Encounter Type Care Provider Facility Start: 08-14-2024 End: 08-14-2024 ambulatory [facility] Work Phone: Start: 08-14-2024 End: 08-14-2024 Encounter for general adult medical examination without abnormal findings [facility] Start: 08-14-2024 End: 08-14-2024 Patient encounter procedure [facility] Physician [facility] Work Phone: Start: 08-07-2024 Non-patient / Non-visit [facility] Physician [facility] Work Phone: Start: 07-13-2024 Patient encounter status [facility] Start: 02-14-2024 End: 02-14-2024 ambulatory [facility] Work Phone: Start: 02-14-2024 End: 02-14-2024 Patient encounter procedure [facility] Physician [facility] Work Phone: Start: 02-12-2024 Non-patient / Non-visit [facility] Physician [facility] Work Phone: Start: 08-13-2023 End: 08-13-2023 ambulatory [facility] Work Phone: Start: 08-13-2023 End: 08-13-2023 Encounter for general adult medical examination without abnormal findings [facility] Start: 08-13-2023 End: 08-13-2023 Patient encounter procedure [facility] Work Phone: Start: 08-07-2023 Non-patient / Non-visit [facility] [employer] Work Phone: Start: 03-29-2023 End: 03-29-2023 ambulatory Stevie Ball Other [employer] Other Start: 03-29-2023 Office outpatient vi sit 15 minutes Stevie Ball [facility] Start: 03-28-2023 End: 03-29-2023 ambulatory Jenna MACKENZIE Facility:[facility] Start: 02-20-2023 End: 02-20-2023 ambulatory Stevie Ball Other [employer] Other Start: 02-20-2023 Telephone encounter Steive Ball [facility] Start: 01-23-2023 End: 01-23-2023 ambulatory Stevie Ball Other [employer] Other Start: 01-23-2023 Telephone encounter Stevie Ball [facility] Start: 12-28-2022 End: 12-28-2022 ambulatory Stevie Ball Other [employer] Other Start: 12-28-2022 Telephone encounter Stevie Ball [facility] Start: 12-10-2022 End: 12-10-2022 ambulatory Stevie Ball Other [employer] Other Start: 12-10-2022 Telephone encounter Stevie Ball [facility] Start: 11-19-2022 End: 11-19-2022 ambulatory Stevie Ball Other [employer] Other Start: 11-19-2022 Office outpatient vi sit 25 minutes Stevie Ball [facility] Start: 09-06-2022 End: 09-06-2022 ambulatory Stevie Madsen Other [employer] Other Start: 09-06-2022 Telephone encounter Stevie MONTES [facility] Start: 08-27-2022 End: 08-27-2022 ambulatory Stevie Madsen Other [employer] Other Start: 08-27-2022 Telephone encounter [facility] Start: 08-24-2022 End: 08-25-[address] STEVIE MADSEN Facility:[facility] Start: 08-09-2022 Encounter for genera l adult medical examination without abnormal findings DR STEVIE MADSEN [facility] Start: 08-08-2022 End: 08-08-2022 ambulatory Stevie Madsen Other [employer] Other Start: 08-08-2022 Encounter for genera l adult medical examination without abnormal findings Stevie Madsen [facility] Start: 08-08-2022 Periodic preventive med est patient 40-64yrs Stevie Madsen [facility] Start: 08-03-2022 End: 08-04-[address] STEVIE MADSEN Facility:[facility] Start: 08-03-2022 End: 08-04-2022 Encounter for general adult medical examination without abnormal findings DR STEVIE MADSEN Facility:[facility] Start: 10-20-2021 End: 10-20-2021 Patient encounter procedure Bora LOYD [facility] Start: 09-20-2021 Encounter for preprocedural cardiovascular examination DR BORA LOYD . [facility] Start: 09-20-2021 Encounter for preprocedural laboratory examination DR BORA LOYD . [facility] Start: 09-20-2021 End: 09-20-[address] JANUSZ BRADY . Facility:[facility] Start: 09-14-2021 End: 09-14-[address] BORA LOYD . Facility:[facility] Start: 09-13-2021 End: 09-14-[address] BORA LOYD . Facility:[facility] Start: 09-13-2021 End: 09-14-2021 Encounter for preprocedural laboratory examination DR BORA LOYD . Facility:[facility] Start: 09-04-2021 End: 09-04-2021 Patient encounter procedure Bora LOYD [facility] Start: 08-18-2021 End: 08-18-2021 Patient encounter procedure Janusz Hill NILL [facility] Start: 08-01-2021 Adult health examination Salty dat Madsen Other [employer] [facility] Other Start: 08-01-2021 Encounter for genera l adult medical examination without abnormal findings tSevie Madsen Other [employer] Other Start: 02-20-2021 End: 02-20-2021 ambulatory [facility]KNOWN PROVIDER [facility] Start: 02-20-2021 End: 02-20-2021 Emergency department patient visit [facility] Facility:[facility] Start: 02-19-2021 ambulatory UNKNOWN PROVIDER [facility] Procedures Date Procedure Procedure Detail Performing Clinician Start: 08-03-[address] CRAFT IN [place] Comment on above: Performed By: #### P [facility] #### [facility] [address] [place] [address] Dr. Christiano William Start: 09-14-2021 Excision of spermatocele Bora LOYD Start: 06-18-2016 Colonoscopy Janusz DUMONT Depression screening Niels Madsen Other Screening for cancer Niels Madsen Other Immunizations Immunization Date Immunization Notes Care Provider Fa samantha 02-14-2024 influenza, seasonal, injectable, preservative free [facility] 07-29-2020 COVID-19, mRNA, LNP- S, PF, 30 mcg/0.3 mL dose; Translations: [Pfizer-BioNTech COVID-19 Vaccine] Janusz BRADY [facility] Comment on above: Reason for Medicatio n: Prophylaxis 07-01-2020 COVID-19, mRNA, LNP- S, PF, 30 mcg/0.3 mL dose; Translations: [Pfizer-BioNTech COVID-19 Vaccine] Janusz BRADY [facility] [place] Comment on above: Reason for Medicatio n: Prophylaxis 07-22-2013 tetanus toxoid, redu kesha diphtheria toxoid, and acellular pertussis vaccine, adsorbed Janusz BRADY [facility] [place] Payers Date Payer Category Payer Unknown [id number] 2.. [id number] 1960 Unknown [id number] 2.16. [id number] 1960 Unknown [id number] 2.. [id number] 1960 Unknown [id number] 2.. [id number] 1960 Unknown [id number] 2.16.84 [id number] 1960 Unknown [id number] 2.16.84 [id number] 1960 Unknown [id number] 2.16.84 [id number] 1960 Unknown [id number] 2.16.84 [id number] 1960 Unknown [id number] 2.16.84 [id number] 1959 [facility] AWA [id number] Social History Date Type Detail Facility Start: 08-18-2021 End: 10-20-2021 Tobacco smoking status Never smoked tobacco (finding) [facility] [place] Comment on above: uses snuff Tobacco smoking status Smokeless tobacco user within last 30 days [facility] [place] Comment on above: uses snuff Sex Assigned At Male [facility] [employer] Start: 1960 Sex Assigned At Male F [facility] Work Phone: Start: 08-14-2024 Sex Male (finding) [facility] Functional Status Date Assessment Result Facility 10-20-2021 Functional Status N/A [facility] [place] Clinical Notes 02-20-2021 to 03-29-2023 Note Date [...] exercise and keep active. Proper sleep routine. [employer] [facility] Other 10-11-2023 Evaluation note* Encounter Date Diagnosis Assessment Notes Treatment Notes Treatment Clinical Notes Jan, Primary hypertension (ICD-10 - I10) [facility] Other 09-15-2023 Evaluation note* Encounter Date Diagnosis Assessment Notes Treatment Notes Treatment Clinical Notes Dec, Primary hypertension (ICD-10 - I10) [employer] [facility] Other 08-28-2023 Evaluation note* Encounter Date Diagnosis Assessment Notes Treatment Notes Treatment Clinical Notes Nov, Primary hypertension (ICD-10 - I10) [employer] [facility] Other 08-07-2023 Evaluation note* Encounter Date Diagnosis [...] - he admits to depression since 's [employer] [facility] Other 05-25-2023 Evaluation note* Encounter Date Diagnosis Assessment Notes Treatment Notes Treatment Clinical Notes August, Aneurysm of ascending aorta without rupture (ICD-10 - I71.21) ECHO: 4.9cm - 08/2022 [employer] [facility] Other 05-15-2023 Evaluation note* Encounter Date Diagnosis Assessment Notes Treatment Notes Treatment Clinical Notes August, SOB (shortness of breath) (ICD-10 - R06.02) August, Chronic cough (ICD-10 - R05.3) August, Post COVID-19 condition, 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 Follow Up Care 09/04/2021 15:28:27 With:EVERT DEE, BRENNON CaraballoL Address: [address] [place] [address] [place] [address]- When:Within 3 Month(s) [facility] 06-08-2022 NoteOPERATIVE NOTE OPERATION DATE: [...] of colon cancer. CC: Stevie Madsen D.O. [facility] Signed and Approved by: DR JANUSZ BRADY . 09/21/2021 12:58:00[facility]05-23-2022 Hospital Discharge instructions Patient Education 09/04/2021 08:28:06 [...] Watch the hydrocele for any changes. Take [id number] and prescription medicines only as told by [...] 09/19/2010 Document Revised: 04/12/2018 Document Reviewed: 04/12/2018 [employer] Patient Education 2020 [facility]. Follow Up Care 08/03/2021 10:14:47 With:EVERT DEE, Bora [place], URL Address: [facility] [address] [place] [address]- When: Unknown [facility] 11-08-2021 NoteDISCHARGE SUMMARY [facility] [address] [place] [address] Reji Pinon Date of : 1960 60 [...] 60 year old male who presents to [facility] as a transfer from [facility] after a mechanical fall down stairs resulting in a possible small L sided SAH. Repeat CT head on [facility] did not showed such head bleeding. NSGY [...] prophylaxis due to: lack of traumatic injuries.[facility] [id number] NoteNeurosurgery Treatment Plan Note Repeat CTH does not demonstrate prior imaging finding from OSH. No acute neurosurgery intervention. No follow up necessary. Neurosurgery to sign off at this time. Please call anytime with questions or concerns. Mala Duncan PA-C Neurosurgery Service Pager: [phone] [id number] [facility] SUR[facility]ERY TRAUMA SURGERY HISTORY AND PHYSICAL Reji Pinon [id number] 02/19/21 BASIC INJURY INFORMATION: Level of activation: [...] down stairs. He was initially evaluated at [facility] where he was noted to have a small SAH which prompted his transfer to [facility]. Patient was positive for EtOH and LOC [...] Gatherings with Friends and Family: * Attends Evangelical Services: * Active Member of Clubs or Organizations: * Attends Club or Organization Meetings: * Marital Status: Intimate Partner Violence: * Fear of Current or Ex-Partner: * Emotionally Abused: * Physically Abused: * Sexually Abused: Living status: Home Primary language: Japanese Functional status: Unknown Impairments: Unknown Assistive Devices [...] - 11.5 K/uL (more content not included)...[facility] Evaluation + Plan note Future Appointments Appointment Date:09/04/2021 02:00:00 PM Scheduled Provider:Bora LOYD MD Location:[facility] Appointment Type:URO New Patient [facility] [place] Evaluation + Plan note Future Appointments Appointment Date:11/10/2021 08:00:00 AM Scheduled Provider:Bora LOYD MD Location:[facility] Appointment Type:URO Office Visit [facility] evaluation + Plan note Future Appointments Appointment Date:01/26/2022 09:30:00 AM Scheduled Provider:Bora LOYD MD Location:[facility] Appointment Type:URO Office Visit [facility] evaluation noteNo InformationNofulton [facility] [employer] Other Evaluation note* Diagnosis Onset Date Resolution Status Benign prostatic hyperplasia with lower urinary tract symptoms acute Bicuspid aortic valve acute Hypertension acute Major depression acute Screening PSA (prostate specific antigen) noneactive Wellness examination noneact dayan [facility] Work Phone: Evaluation note* Diagnosis Onset Date Resolution Status Benign prostatic hyperplasia with lower urinary tract symptoms acute Bicuspid aortic valve acute Hypertension acute Major depression acute [facility] Work Phone: Evaluation note* Diagnosis Onset [...] Wellness examination noneactive August 14, 2024 2:10pm [facility] Work Phone: History general Narrative - Reported* Type Description Date Medical History Testicular cyst Medical History Spermatocele Medical History Hydrocele, left Medical History Chewing tobacco kassidy ofe dependence without complication Medical History Acute pain of left shoulder Medical History Hydrocele in adult Surgical History COLONOSCOPY Surgical History LEFT SPERMATOCELECTOMY 2021 Hospitalization History SEE SURGICAL [facility] Other History general Narrative - Reported* Type Description Date Medical History Testicular cyst Medical History Spermatocele Medical History Hydrocele, left Medical History Chewing tobacco kassidy ofe dependence without complication Medical History Acute pain of left shoulder Medical History Hydrocele in adult Medical History Bicuspid aortic valve Medical History Ascending aortic aneurysm Surgical History COLONOSCOPY Surgical History LEFT SPERMATOCELECTOMY 2021 Hospitalization History SEE SURGICAL [employer] Other Hospital course Narrative No data available for this section [facility] Discharge instructions No data available for this section [facility] note No data available for this section [facility] Summary Purpose Family History Relationship [...] and content) DATE CREATED AUTHOR 05/24/2021 [facility] DATE CREATED AUTHOR AUTHOR'S ORGANIZ ATION 08/25/2022 [facility] pital DATE CREATED AUTHOR AUTHOR'S ORGANIZ ATION 04/02/2023 [facility] Care Team (unrecognized sect ion and content) [...] BE BASED ON THE PRIMARY CLINICAL RECORDS. [facility] [employer] [facility]. provides no warranty or guarantee of the accuracy or completeness of information in this document.
== END 2024-10-07 21:28 | disposition home or self-care (01) ==
LOC: SLEEP 21:27
PROVIDERS: PCP Internal Medicine; Visit Provider Internal Medicine
DX: G47.33 Obstructive sleep apnea (adult) (pediatric) (principal)
CPT/HCPCS: 95810

== ENCOUNTER 2024-10-20 19:49 | Outpatient (OUT) | payer BC, SELFPAY ==
--- OUTSIDE RECORDS SUMMARY | 2024-03-18 13:05 | XMS_ITS ---
Author Name Auto Generated Organization [facility] Care Team Providers Care Dental Assistant Medical Assistant Name Role Phone Emeka HARTMAN Attending Unavailable PROBLEMS No Problem Records Found PROCEDURES No Procedure Records Found RESULTS No Result Records Found ALLERGIES DATE TYPE / CODE NAME / CODE REACTION SEVERITY SOURCE [id number](SNOME D CT) No Known Allergies [facility] [id number](SNOME D CT) No Known Medication Allergies [facility] ENCOUNTERS ADMIT/DISCHARGE ACCOUNT NUMBER ADMITTING ENCOUNTER CLASS LOCATION SOURCE 03/18/2024/ 4 [id number] [facility] PAYERS No Payer Records Found
== END 2024-10-20 19:50 | disposition home or self-care (01) ==
LOC: SLEEP 19:50
PROVIDERS: PCP Internal Medicine; Visit Provider Internal Medicine
DX: G47.33 Obstructive sleep apnea (adult) (pediatric) (principal)
CPT/HCPCS: 95811

== ENCOUNTER 2025-02-10 16:24 | Outpatient (OUT) | payer BC, SELFPAY ==
--- OUTSIDE RECORDS SUMMARY | 2025-02-10 16:29 | XMS_ITS | Patient Health Record ---
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 Name Role Phone Stevie Madsen DO Primary Care Provider Unavaila ble Allergies No Known Allergies Reason For Referral No Information Medications Medication SIG (Take, Route, Frequency, Duration) Notes Start Date End Date Status Carvedilol 25 MG 1 tablet with food Orally Twice a day 01/15/2024ctiveMeloxicam 15 MGTAKE 1 TABLET BY MOUTH EVERY DAY FOR 30 DAYS; Duration: 30ActiveamLODIPine Besylate 5 MG1 tablet Orally Once a day01/15/2024 ActivemethylPREDNISolone 4 MGas directed Knzeaa6201/15/2024ctive Social History Tobacco Use: Social History Observation Description Date Details (start date - stop date) Current Smoker NA - NA Tobacco Control (Standard) Question Answer Notes Tobacco use: Current smoker Problems Problem Type SNOMED Code ICD Code Onset Dates Problem Status W/U Status Risk Notes Problem Plantar fascial fibr omatosis (18251260) Plantar fascial fibromatosis (M72.2) ActiveconfirmedProblemPain in left foot (337788300189620)Left foot pain (M79.672)ActiveconfirmedProblemPulmonary hypertension (22053993)Pulmonary hypertension, unspecified (I27.20)Activeconfirmed Plan Of Treatment Pending Test Test Name Order Date XR Foot LT (3 views) * 01/15/2024 XR foot LT min 3V 01/16/2024 Insurance Providers Payer Name Payer Address Payer Phone Subscriber Number Group Number Insured Name Patient Relationship to Insured Coverage Start Date Coverage End Date BCBS OUT OF STATE [address] [place] [address] [id number] Sidney Rincon Self - patient is the insured Medical (General) History Medical History History ICD Code hypertension
--- OUTSIDE RECORDS SUMMARY | 2025-02-10 16:29 | XMS_ITS | CCD ---
Author Organization [facility] Care Team Providers Care Solar Site Assessment Specialist Name Role Phone GO CHAVES Attending Unavailable [...] GERMAIN Consulting Unavailable AGUBOSIM, RON Consulting Unavailable SHIVA RAMIREZ Consulting Unavailable NILL ., DR BOUDREAUX Admitting Unavailable NILL ., DR BOUDREAUX Attending Unavailable CALE, DR HARDY Primary Care Unavailable NILL ., DR BOUDREAUX Consulting Unavailable SHIVA RAMIREZ Consulting Unavailable MCCORNACKOCTAVIO Consulting Unavailable CALE, DR HARDY Admitting Unavailable CALE, DR HARDY Attending Unavailable BALL, DR HARDY Primary Care Unavailable CALE, DR HARDY Consulting Unavailable GURDEEPJenna HESS Attending Unavailable Allergies Allergy ClassificationReported Allergen(s)Allergy TypeDate of OnsetReaction(s) Facility (1 source)No Known Medication Allergies; Translations: [No Known Medication Allergies]Propensity to adverse reactions (disorder)[facility] Repository Medications Current Medications MedicationDrug Class(es)DatesSig (Normalized)Sig (Original)amLODIPine 5 mg oral tablet (7 sources)Dihydropyridine Calcium Channel BlockerStart: 50-81-3391onys 1 tablet by mouth once dailyAmlodipine 5 mg tablet Active 0 .ROUTE .COMPLEX 90 February 14, 2024 4:11pm TAKE 1 TABLET BY MOUTHEVERY DAY FOR 90 DAYSStart: 08-12-2023 End: 60-28-3243tlkm 1 tablet by mouth once dailyAmlodipine 5 mg tablet Discontinued 5 MG PO Daily August 12, 2023 12:00am February 14, 2024 4:11pm Start: 04-19-7901ngpe 1 tablet by mouth every twenty-four hoursamLODIPine Besylate 5 MG 1 tablet Orally Once a day for 30 days Jan, Active carvedilol 25 mg oral tablet (10 sources)alpha-Adrenergic Moe, beta-Adrenergic BlockerStart: 03-26-2024 End: 01-42-2736zcjv 1 tablet by mouth twice daily at mealtimeCarvedilol 25 mg tablet Active 0 .ROUTE .COMPLEX 180 August 14, 2024 3:03pm TAKE 1 TABLET BY MOUTH TWICE A DAY WITH FOODStart: 08-12-2023 End: 11-18-7716dqhm 1 tablet by mouth twice dailyCarvedilol 25 mg tablet Discontinued 25 MG PO Twice daily August 12, 2023 12:00am March 26, 2024 10:45amStart: 59-84-5685kbaz 1 tablet by mouth every twelve hoursCarvedilol 12.5 MG 1 tablet with food Orally Twice a day for 30 days Nov, ActiveStart: 01-33-7240qtzb 1 tablet by mouth every twelve hoursCarvedilol 6.25 MG 1 tablet with food Orally Twice a day for 30 days Nov, ActiveCarvedilol 25 MG TAKE 1 TABLET BY MOUTH TWICE A DAY WITH FOOD FOR 30 DAYS Orally Twice a day ActiveIbuprofen (2 sources)Nonsteroidal Anti-inflammatory DrugStart: 07-38-3322kfylyrkon PRN as needed for pain, Refills(s) 0 Start Date: 09/04/21 Status: Ordered Completed/Discontinued Medications MedicationDrug Class(es)DatesSig (Normalized)Sig (Original)escitalopram 10 mg oral tablet (4 sources)Serotonin Reuptake InhibitorStart: 08-12-2023 End: 99-07-0489trdt 1 tablet by mouth once dailyEscitalopram Oxalate 10 mg tablet Discontinued 10 MG PO Daily August 12, 2023 12:00am February 14, 2024 2:41pmStart: 01-48-9538lkla 1 tablet by mouth once daily at bedtimeEscitalopram Oxalate 10 MG 1 tablet Orally Once a day before bedtime for 30 days Mar, ActivetiZANidine 4 mg oral tablet (15 sources)Central alpha-2 Adrenergic AgonistStart: 08-12-2023 End: 03-29-2520wvtv 1 tablet by mouth three times daily as neededTizanidine 4 mg tablet Discontinued 4 MG PO Three times daily as needed August 12, 2023 12:00am August 14, 2024 2:39pmStart: 43-53-1507efzr 1 tablet by mouth at bedtimetiZANidine 4 mg Tab 4 mg = 1 tab(s), Oral, Bedtime, Refills(s) 0 Start Date: 07/31/21 Status: Ordered Problems Active Problems Problem ClassificationProblemDateDocumented DateEpisodic/ChronicAcute cerebrovascular disease (5 sources)Subarachnoid hemorrhage; Translations: [Nontraumatic subarachnoid hemorrhage, unspecified]Onset: 67-66-9471UfmkcixUxahfut and circulatory congenital anomalies (16 sources)Bicuspid aortic valve; Translations: [Congenital insufficiency of aortic valve]ChronicEssential hypertension (16 sources)Essential (primary) hypertension; Translations: [Essential hypertension]Onset: 95-51-7480SusphhzVmakazqzqas of prostate (16 sources)Nocturia due to benign prostatic hypertrophy; Translations: [Benign prostatic hyperplasia with lower urinary tract symptoms]ChronicIntracranial injury (5 sources)History of traumatic brain injury; Translations: [Personal history of traumatic brain injury]EpisodicMalaise and fatigue (1 source)Other fatigueEpisodicMood disorders (8 sources)Recurrent major depressive episodes, mild ; Translations: [Major depressive disorder, recurrent, mild]ChronicOther circulatory disease (8 sources)Elevated blood-pressure reading without diagnosis of hypertension; Translations: [Elevated blood-pressure reading, without diagnosis of hypertension]09-99-5902TrcbwofrCgfpq circulatory disease (3 sources)History of subarachnoid usdchmnvrd61-75-3443XlxdcuxkStgiw circulatory disease (1 source)Other specified symptoms and signs involving the circulatory and respiratory systemsEpisodicOther circulatory disease (1 source)Elevated blood-pressure reading, without diagnosis of hypertension EpisodicOther connective tissue disease (1 source)Plantar fasciitis of left foot; Translations: [Plantar fascial fibromatosis]20-45-6273HvhyhnryTrbvl female genital disorders (3 sources)Disorder of reproductive wsiicq87-38-3966JsjatdhbNkltm injuries and conditions due to external causes (3 sources)History of closed head suoutr09-75-5433OeeincblSvrct lower respiratory disease (1 source)Other forms of dyspneaEpisodicOther lower respiratory disease (1 source)Shortness of breathEpisodicOther male genital disorders (2 sources)Hydrocele of testis; Translations: [Hydrocele, unspecified]Onset: 62-24-2183VnfaliypEvhnf male genital disorders (2 sources)Cyst of -53-9353HjvlimpkEaeow male genital disorders (14 sources)Spermatocele; Translations: [Spermatocele of epididymis, unspecified]Onset: 89-63-6526YmrlilvxOoxya male genital disorders (16 sources)Hydrocele; Translations: [Hydrocele, unspecified]EpisodicOther male genital disorders (11 sources)Benign cyst of testis; Translations: [Testicular cyst]Onset: 06-60-2172NsrzxobfAwzdq male genital disorders (6 sources)Spermatocele of epididymis, unspecified; Translations: [SPERMATOCELE EPIDIDYMIS UNSPECIFIED]Onset: 18-12-6408JvlsmxryJbznc male genital disorders (8 sources)Hydrocele, unspecified; Translations: [Hydrocele]Onset: 09-20-2021 EpisodicOther male genital disorders (4 sources)Benign cyst of testes; Translations: [Benign cyst of testis]Episodic Other non-epithelial cancer of skin (3 sources)Malignant neoplasm of koiq77-65-5633HhsrvxsqMhkch non-traumatic joint disorders (12 sources)Shoulder joint pain; Translations: [Pain in left shoulder]Episodic Other non-traumatic joint disorders (2 sources)Pain in left shoulder; Translations: [Pain in left shoulder]Episodic Other nutritional; endocrine; and metabolic disorders (1 source)Obesity; Translations: [Obesity, unspecified]74-62-7430CiqqlutPhtyf nutritional; endocrine; and metabolic disorders (1 source)Obesity, unspecified; Translations: [Obesity, unspecified]08-14-2024 ChronicOther nutritional; endocrine; and metabolic disorders (3 sources)Body mass index 25-29 - tiuifqddof35-30-2010NkhbenbqYvmtx nutritional; endocrine; and metabolic disorders (5 sources)Overweight; Translations: [Overweight]EpisodicOther nutritional; endocrine; and metabolic disorders (2 sources)Overweight; Translations: [Overweight]EpisodicOther screening for suspected conditions (not mental disorders or infectious disease) (9 sources)Encounter for screening for malignant neoplasm of prostate; Translations: [Encounter for screening for malignant neoplasm of colon]Onset: 66-25-8321XrfprltoCppdkal on above:PSA: 0.9 - 4Residual codes; unclassified (2 sources)Chews kvknefk06-19-3669PjarhxjpDzhudyfo codes; unclassified (2 sources)Family history of cancer of uecuy50-26-2361HsvepcduYqjbkgzs codes; unclassified (1 source)Family history of strokeEpisodicSubstance-related disorders (18 sources)Nicotine dependence; Translations: [Tobacco user]Onset: 09-26-2021 44-42-6134NbuwypeZvthfkhpggia (3 sources)Chronic pain of left upper tdng77-13-2140Idsniormlfdj (2 sources)Patient encounter oztdvj79-77-3364 Past or Other Problems Problem ClassificationProblemDateDocumented DateEpisodic/ChronicGenitourinary symptoms and ill-defined conditions (6 sources)Nocturia; Translations: [Nocturia]Onset: 92-02-2736BsgtdsamWwtkw male genital disorders (5 sources)Disorder of male genital organ; Translations: [Other specified disorders of the male genital organs] Resolved: 02-73-5966LwopxoqwCxdaehsg codes; unclassified (2 sources)Family history of malignant neoplasm of digestive organs; Translations: [FAM HX MALIG NEOPLASM DIGESTIV ORGN]Onset: 19-88-6747Gbxiuguk Unclassified (2 sources)Post COVID-19 condition, unspecified U09.9Unclassified (1 source)Chronic cough R05.3Unclassified (3 sources)Aneurysm of ascending aorta without rupture I71.21 Results Test NameValueInterpretationReference RangeFacilityBasophils Auto (Bld) [#/Vol] on 69-04-7949Ddtqlzcag (Bld) [#/Vol]Automated basophil count0.0-0.1FPremier Health Miami Valley Hospital NorthBasophils/100 WBC Auto (Bld)on 88-48-8129Ipnskdarz/100 WBC (Bld)Automated basophil %0.2-2.0[facility] SystemCholesterol in LDL Calc [Mass/Vol]on 98-13-2602Ltnfzsxsfbk in LDL [Mass/Vol]Cholesterol in LDL [Mass/volume] in Serum or Plasma by calculationThe Metrohealth SystemComment on above:<100 mg/dl EDVLJEO466-618 mg/dl NEAR OR ABOVE CTWKRNK012- 159 mg/dl BORDERLINE MBIU532-633 mg/dl HIGH>190 mg/dl VERY HIGHCholesterol in VLDL Calc [Mass/Vol]on 82-69-4335Ynvdbqncfdo in VLDL [Mass/Vol]Cholesterol in VLDL [Mass/volume] in Serum or Plasma by calculationThe [facility] SystemEosinophils/100 WBC Auto (Bld)on 02-26-5355Bgbjyutldub/100 WBC (Bld) Automated eosinophil %0.9-7.0[facility] SystemErythrocyte distribution width Auto (RBC) [Ratio]on 80-48-5405Ilcfkarmqsk distribution width (RBC) [Ratio]Erythrocyte distribution width [Ratio] by Automated count11.0-15.0 [facility] SystemEstimated glomerular filtration rate (GFR) non- Americanon 34-88-5809LWO/1.73 sq M.predicted among non-blacks MDRD (S/P/Bld) [Vol rate/Area]Estimated glomerular filtration rate (GFR) non->=60 mL/min/1.73m 2FPremier Health Miami Valley Hospital NorthGlobulin Calc (S) [Mass/Vol]on 64-62-4582Vdgkjzmf (S) [Mass/Vol]Serum globulin measurement by calculation (mass/volume)The [facility] SystemHematocrit Auto (Bld) [Volume fraction]on 69-63-3987Ymabhveydo (Bld) [Volume fraction]Hematocrit [Volume Fraction] of Blood by Automated count42.0-54.0The [facility] SystemHemoglobin [Mass/volume] in Bloodon 58-10-5635Ajigvkrukf (Bld) [Mass/Vol] Hemoglobin [Mass/volume] in Blood14.0-18.0[facility] Laboratory - Chemistry and Chemistry - challengeon 18-70-7853Doagzzc [Mass/Vol] 3.9 g/dL3.4-5.0[facility] SystemALP [Catalytic activity/Vol]55 U/J15-593TxplivbtsThe Metrohealth SystemALT [Catalytic activity/Vol]24 U/L 16-63The [facility] SystemAST [Catalytic activity/Vol]18 U/L15-37 [facility] SystemBilirubin [Mass/Vol]0.8 mg/dL0.2-1.0[facility] SystemCalcium [Mass/Vol]9.0 mg/dL8.5-10.1FPremier Health Miami Valley Hospital NorthChloride [Moles/Vol]103 mmol/T30-455WzbvutkkyThe [facility] SystemCholesterol [Mass/Vol]171 mg/dL<=200[facility] Cholesterol in HDL [Mass/Vol]57 mg/cR14-72TlfqhdkpvThe [facility] Comment on above:> or =60 mg/dl - LOW CARDIOVASCULAR RISK<40 mg/dl - HIGH CARDIOVASCULAR RISKCO2 [Moles/Vol]25.0 mmol/L21.0-32.0[facility] SystemCreatinine [Mass/Vol]1.06 mg/dL0.70-1.30[facility] GFR/1.73 sq M.predicted MDRD (S/P/Bld) [Vol rate/Area]mL/min/{1.73_m2}>=60 mL/min/1.73m 2FPremier Health Miami Valley Hospital NorthGlucose [Mass/Vol]95 mg/cW30-239 [facility] SystemPotassium [Moles/Vol]4.4 mmol/L3.5-5.1FPremier Health Miami Valley Hospital NorthProtein [Mass/Vol]7.0 g/dL6.4-8.2FMansfield Hospitalodium [Moles/Vol]137 mmol/X547-295ZevhcmckyThe [facility] SystemTriglyceride [Mass/Vol]37 mg/dL<=150The [facility] SystemUrea nitrogen [Mass/Vol]7.0 mg/dL7.0-18.0[facility] SystemUrea nitrogen/Creatinine [Mass ratio]6.6 mg/mgThe [facility] System Laboratory - Hematology and Cell countson 71-29-6295Qklzshvm granulocytes/100 WBC (Bld)0.3 %0.0-0.5FPremier Health Miami Valley Hospital NorthLeukocytes [#/volume] corrected for nucleated erythrocytes in Blood by Automated counon 64-98-2165RZX corrected for nucl RBC Auto (Bld) [#/Vol]Leukocytes [#/volume] corrected for nucleated erythrocytes in Blood by Automated coun4.0-11.0[facility] SystemLymphocytes Auto (Bld) [#/Vol]on 90-05-2376Uizrcakcbac (Bld) [#/Vol]Lymphocytes [#/volume] in Blood by Automated count1.2-3.8The [facility] SystemLymphocytes/100 WBC Auto (Bld)on 08-07-2024 Lymphocytes/100 WBC (Bld)Lymphocytes/100 leukocytes in Blood by Automated count 20.5-60.0The [facility] SystemMCH Auto (RBC) [Entitic mass]on 08-86-7701ZSO (RBC) [Entitic mass]MCH [Entitic mass] by Automated count25.9-34.0 [facility] SystemMCHC Auto (RBC) [Mass/Vol]on 27-77-3483IIFH (RBC) [Mass/Vol]MCHC [Mass/volume] by Automated count29.9-35.2FPremier Health Miami Valley Hospital NorthMCV Auto (RBC) [Entitic vol]on 02-02-0737MIM (RBC) [Entitic vol] MCV [Entitic volume] by Automated zalasEikx90.0-94.0[facility] SystemMonocytes Auto (Bld) [#/Vol]on 01-56-3177Utelfliji (Bld) [#/Vol]Automated blood monocyte count0.3-0.8[facility] SystemMonocytes/100 WBC Auto (Bld)on 24-68-6802Bbltqcojy/100 WBC (Bld)Automated monocyte %1.7-12.0 [facility] SystemNeutrophils Auto (Bld) [#/Vol]on 08-07-2024 Neutrophils (Bld) [#/Vol]Neutrophils [#/volume] in Blood by Automated count 1.4-6.5FPremier Health Miami Valley Hospital NorthNeutrophils/100 WBC Auto (Bld)on 08-98-1364Sykeemamvra/100 WBC (Bld)Automated neutrophil %43.0-75.0[facility] SystemNo Panel Informationon 44-77-7679Vuxrehouhjd # (Auto)0.4 10 3/uL0.0-0.7FPremier Health Miami Valley Hospital NorthImmature Granulocyte # (Auto)0.02 10 3/uL0.00-0.03[facility] SystemProstate Specific Antigen Screen0.90 ng/mL<=4.00The [facility] SystemPlatelet mean volume Auto (Bld) [Entitic vol]on 95-63-7218Ympudhcz mean volume (Bld) [Entitic vol] Platelet mean volume [Entitic volume] in Blood by Automated count9.5-13.5 [facility] SystemPlatelets Auto (Bld) [#/Vol]on 08-07-2024 Platelets (Bld) [#/Vol]Platelets [#/volume] in Blood by Automated gtruy028-077 [facility] SystemRBC Auto (Bld) [#/Vol]on 29-66-1891OZA (Bld) [#/Vol]Erythrocytes [#/volume] in Blood by Automated countLow4.70-6.10Summa Healtherum or plasma albumin/globulin mass ratioon 08-07-2024 Albumin/Globulin [Mass ratio]Serum or plasma albumin/globulin mass ratio [facility] Healtherum or plasma anion gap determinationon 98-59-5172Fwyaa gap [Moles/Vol]Serum or plasma anion gap determinationSumma Healtherum or plasma total cholesterol/high density lipoprotein (HDL) cholesterol mass shirley 36-81-1309Ghaljrhfqgz.total/Cholesterol in HDL [Mass ratio]Serum or plasma total cholesterol/high density lipoprotein (HDL) cholesterol mass ratThe Metrohealth SystemComment on above:3.3 - 4.4 LOW RISK4.4 - 7.1 AVERAGE RISK7.1 - 11.0 MODERATE RISK>11.0 HIGH RISK Basophils Auto (Bld) [#/Vol]on 03-80-7961Cxdhbkude (Bld) [#/Vol]0.1 10 3/uL 0.0-0.1FPremier Health Miami Valley Hospital NorthBasophils/100 WBC Auto (Bld)on 45-36-2993Epbyfmgxb/100 WBC (Bld)1.3 %0.2-2.0[facility] Cholesterol in LDL Calc [Mass/Vol]on 54-77-1780Dcaqukgieyw in LDL [Mass/Vol] 112.4 mg/dLThe Metrohealth SystemComment on above:<100 mg/dl ERSFTET227-985 mg/dl NEAR OR ABOVE EENESHN436-397 mg/dl BORDERLINE SFPW249-823 mg/dl HIGH>190 mg/dl VERY HIGHCholesterol in VLDL Calc [Mass/Vol]on 08-07-2023 Cholesterol in VLDL [Mass/Vol]8.6 mg/dLThe [facility] System Eosinophils/100 WBC Auto (Bld)on 22-53-4686Phmrppnasee/100 WBC (Bld)8.1 %0.9-7.0 [facility] SystemErythrocyte distribution width Auto (RBC) [Ratio]on 32-98-7326Syvbgjsksms distribution width (RBC) [Ratio]11.2 %11.0-15.0 [facility] SystemEstimated glomerular filtration rate (GFR) non- Americanon 49-79-9400MQB/1.73 sq M.predicted among non-blacks MDRD (S/P/Bld) [Vol rate/Area]mL/min/{1.73_m2}>=60[facility] Globulin Calc (S) [Mass/Vol]on 80-35-0788Envzyzya (S) [Mass/Vol]3.3 g/dL [facility] SystemHematocrit Auto (Bld) [Volume fraction]on 21-57-1235Ueouepbnbf (Bld) [Volume fraction]42.8 %42.0-54.0[facility] SystemHemoglobin [Mass/volume] in Bloodon 13-11-8421Kljjqbhrvj (Bld) [Mass/Vol]14.4 g/dL14.0-18.0[facility] SystemLaboratory - Chemistry and Chemistry - challengeon 99-64-8156Mpthazd [Mass/Vol]3.5 g/dL 3.4-5.0[facility] SystemALP [Catalytic activity/Vol]61 U/L46-116 [facility] SystemALT [Catalytic activity/Vol]31 U/L16-63 [facility] SystemAST [Catalytic activity/Vol]24 U/L15-37 [facility] SystemBilirubin [Mass/Vol]0.5 mg/dL0.2-1.0[facility] SystemCalcium [Mass/Vol]8.7 mg/dL8.5-10.1FPremier Health Miami Valley Hospital NorthChloride [Moles/Vol]103 mmol/X11-956UmqvkkwjzThe [facility] SystemCholesterol [Mass/Vol]179 mg/dL<=200[facility] Cholesterol in HDL [Mass/Vol]58 mg/sN03-48KjgznvirsThe [facility] System Comment on above:> or =60 mg/dl - LOW CARDIOVASCULAR RISK<40 mg/dl - HIGH CARDIOVASCULAR RISKCO2 [Moles/Vol]26.8 mmol/L21.0-32.0[facility] SystemCreatinine [Mass/Vol]0.96 mg/dL0.70-1.30[facility] GFR/1.73 sq M.predicted MDRD (S/P/Bld) [Vol rate/Area]mL/min/{1.73_m2}>=60 [facility] SystemGlucose [Mass/Vol]105 mg/sL43-280NjftzhwoeThe [facility] SystemPotassium [Moles/Vol]4.4 mmol/L3.5-5.1FPremier Health Miami [facility] Hospital NorthProtein [Mass/Vol]6.8 g/dL6.4-8.2FPremier Health [facility] Sodium [Moles/Vol]139 mmol/J697-609HbnktdvblThe [facility] SystemTriglyceride [Mass/Vol]43 mg/dL<=150The [facility] SystemUrea nitrogen [Mass/Vol]13.0 mg/dL7.0-18.0[facility] SystemUrea nitrogen/Creatinine [Mass ratio]13.5 mg/mgThe [facility] System Laboratory - Hematology and Cell countson 80-54-4375Bnuygxhp granulocytes/100 WBC (Bld)0.2 %0.0-0.5FPremier Health Miami Valley Hospital NorthLeukocytes [#/volume] corrected for nucleated erythrocytes in Blood by Automated counon 17-46-0460ODJ corrected for nucl RBC Auto (Bld) [#/Vol]4.7 10 3/uL4.0-11.0[facility] SystemLymphocytes Auto (Bld) [#/Vol]on 57-20-6640Hijwncuxlml (Bld) [#/Vol]1.6 10 3/uL1.2-3.8[facility] SystemLymphocytes/100 WBC Auto (Bld)on 04-60-4406Bfdetbqbrim/100 WBC (Bld)33.2 %20.5-60.0[facility] Auto (RBC) [Entitic mass]on 03-61-5053STP (RBC) [Entitic mass]32.6 pg25.9-34.0The [facility] SystemMCHC Auto (RBC) [Mass/Vol]on 13-23-1079KGFL (RBC) [Mass/Vol]33.6 g/dL29.9-35.2FPremier Health Miami Valley Hospital NorthMCV Auto (RBC) [Entitic vol]on 00-34-8007UXA (RBC) [Entitic vol] 96.8 fL80.0-94.0[facility] SystemMonocytes Auto (Bld) [#/Vol]on 82-42-2291Fyrdjqsbg (Bld) [#/Vol]0.5 10 3/uL0.3-0.8[facility] SystemMonocytes/100 WBC Auto (Bld)on 83-44-1493Oxhovdkek/100 WBC (Bld)10.7 % 1.7-12.0[facility] SystemNeutrophils Auto (Bld) [#/Vol]on 92-89-4185Uuygqfwowbt (Bld) [#/Vol]2.2 10 3/uL1.4-6.5FPremier Health Miami Valley Hospital NorthNeutrophils/100 WBC Auto (Bld)on 74-74-0792Otwahtkjsba/100 WBC (Bld)46.5 % 43.0-75.0[facility] SystemNo Panel Informationon 08-07-2023 Eosinophils # (Auto)0.4 10 3/uL0.0-0.7FPremier Health Miami Valley Hospital NorthImmature Granulocyte # (Auto)0.01 10 3/uL0.00-0.03[facility] Prostate Specific Antigen Screen0.58 ng/mL<=4.00[facility] SystemPlatelet mean volume Auto (Bld) [Entitic vol]on 41-15-0371Pzruytmp mean volume (Bld) [Entitic vol]10.4 fL9.5-13.5FPremier Health Miami [facility] North Platelets Auto (Bld) [#/Vol]on 54-71-1799Rjmiaxjgp (Bld) [#/Vol]194 10 3/uL 150-450The [facility] SystemRBC Auto (Bld) [#/Vol]on 01-87-1097UDF (Bld) [#/Vol]4.42 10 6/uL4.70-6.10[facility] Healtherum or plasma albumin/globulin mass ratioon 30-84-8340Ipsrdzg/Globulin [Mass ratio]1.1 {ratio}[facility] Healtherum or plasma anion gap determination on 64-30-6402Wuyit gap [Moles/Vol]13.6 mmol/LFPremier Health Miami Valley Hospital North Serum or plasma total cholesterol/high density lipoprotein (HDL) cholesterol mass shirley 35-01-5776Gvtdnttpjwa.total/Cholesterol in HDL [Mass ratio]3.1 {ratio}[facility] SystemComment on above:3.3 - 4.4 LOW RISK4.4 - 7.1 AVERAGE RISK7.1 - 11.0 MODERATE RISK>11.0 HIGH RISKRegistrationon 04-01-2023 [id number]#1.00TIFThe Bellevue HospitalIn office Testingon 14-67-0741Gq office Testing [id number]#1.00TIFThe Bellevue HospitalRegistrationon 59-97-7267Izcjwdzihhem [id number]#1.00TIFFNormalFisher [facility] CAROTID ART BILon 75-54-5200JF CAROTID ART BILEXAMINATION: US CAROTID ART DB HISTORY: Cardiovascular symptoms [...] Electronically authenticated by: MARGARITA VIERA Date: 2022-08-25 08:[address] [place], [place] [address]ECHOCARDIO M/2D COMPLETEon 42-76-0073TFECTFIAUO M/2D COMPLETE Patient: REJI PINON Exam Date: 08/24/2022 : 1960 Gender:M Ordering : DR STEVIE MADSEN D.O. Admission #: [id number] Family : Order #: [id number] CLICK HERE TO VIEW EXAM ECHOCARDIOGRAM REPORT [...] by: Sal Cruz M.D. on 08/24/2022 at 19:28NoalThCincinnati Shrin[facility] AUTO DIFFon 74-99-2749ATSL #0.1 103/ulNormal0.0-0.1[facility] HospitalComment on above:Performed By: #### CBC #### [facility] [address] [place] [address] Dr. Christiano WilliamBasophils/100 WBC (Bld)1.2 %Normal0.2-2.0[facility] Comment on above:Performed By: #### CBC #### [facility] [address] [place] [address] Dr. Christiano Sanders #0.3 103/ulNormal0.0-0.7The [facility]opedic CenterComment on above: Performed By: #### CBC #### [facility] [address] [place] [address] Dr. Christiano Lipscombosinophils/100 WBC (Bld)6.6 %Normal0.9-7.0[facility] Comment on above:Performed By: #### CBC #### [facility] [address] [place] [address] Dr. Christiano Lipscombrythrocyte distribution width (RBC) [Ratio]11.3 %Wjpuyq14.0-15.0 [facility] CenterComment on above:Performed By: #### CBC #### [facility] [address] [place] [address] Dr. Christiano WilliamHematocrit (Bld) [Volume fraction]44.2 %Qedsca44.0-54.0The [facility] CenterComment on above:Performed By: #### CBC #### [facility] [address] [place] [address] Dr. Christiano WilliamHemoglobin (Bld) [Mass/Vol]15.4 g/kEHftcmg68.0-18.0The [facility] CenterComformerly [facility] on above:Performed By: #### CBC #### [facility] [address] [place] [address] Dr. Christiano Hodge #0.01 10e3/ulNormal0.00-0.03The [facility] CenterComment on above:Performed By: #### CBC #### [facility] [address] [place] [address] Dr. Christiano Hodge %0.2 %Normal0.0-0.5The [facility] CenterComformerly [facility] on above: Performed By: #### CBC #### [facility] [address] [place] [address] Dr. Christiano GaitanH #1.5 103/ulNormal1.2-3.8The [facility] CenterComformerly [facility] on above:Performed By: #### CBC #### [facility] [address] [place] [address] Dr. Christiano Cagemphocytes/100 WBC (Bld)35.4 %Fqtehp91.5-60.0The [facility] CenterComformerly [facility] on above:Performed By: #### CBC #### [facility] [address] [place] [address] Dr. Christiano PeñaUAL DIFF REQNONormalThe [facility] CenterComment on above: Performed By: #### CBC #### [facility] [address] [place] [address] Dr. Christiano Chambers (RBC) [Entitic mass]33.0 snVroszo86.9-34.0The [facility]opedic CenterComment on above:Performed By: #### CBC #### [facility] [address] [place] [address] Dr. Christiano Chambers (RBC) [Mass/Vol]34.8 g/eDVtafze01.9-35.2The [facility] CenterComment on above:Performed By: #### CBC #### [facility] [address] [place] [address] Dr. Christiano Chambers (RBC) [Entitic vol]94.6 fLCritically high80.0-94.0The [facility] CenterComment on above:Performed By: #### CBC #### [facility] [address] [place] [address] Dr. Christiano Marsh #0.5 103/ulNormal0.3-0.8The [facility] CenterComment on above:Performed By: #### CBC #### [facility] [address] [place] [address] Dr. Christiano Romoocytes/100 WBC (Bld)11.2 %Normal1.7-12.0The [facility] Comment on above:Performed By: #### CBC #### [facility] [address] [place] [address] Dr. Christiano Fountain #1.9 103/ulNormal1.4-6.5The [facility] CenterComment on above:Performed By: #### CBC #### [facility] [address] [place] [address] Dr. Christiano Collierutrophils/100 WBC (Bld)45.4 %Fnvvwy72.0-75.0The [facility] CenterComment on above:Performed By: #### CBC #### [facility] [address] [place] [address] Dr. Christiano Alvarezlet mean volume (Bld) [Entitic vol]10.0 fLNormal9.5-13.5The [facility] CenterComment on above:Performed By: #### CBC #### [facility] [address] [address] [address] Christiano DrakeT222 103/duVldbzt482-550ZvsMercy Health Fairfield HospitalComformerly [facility] on above: Performed By: #### CBC #### [facility] [address] [address] [address] Christiano WilliamRBC4.67 106/ulCritically low4.70-6.10The [facility] CenterComment on above:Performed By: #### CBC #### [facility] [address] [place] [address] Dr. Christiano WilliamWBC4.1 103/ulNormal4.0-11.0The [facility] CenterComment on above: Performed By: #### CBC #### [facility] [address] [place] [address] Dr. Christiano LaddID PROFILEon 68-23-3205VBAW-HDL RATIO NORMSSamaritan HospitalComment on above:Result Comment: 3.3 - 4.4 LOW RISK 4.4 - 7.1 AVERAGE RISK 7.1 - 11.0 MODERATE RISK >11.0 HIGH RISKPerformed By: #### LIPID, CMP #### [facility] [address] [place] [address] Dr. Christiano Ramiresesterol [Mass/Vol]177 mg/dLNormal<=200[facility] Comment on above:Performed By: #### LIPID, CMP #### [facility] [address] [place] [address] Dr. Christiano Ramiresesterol in HDL [Mass/Vol]63 mg/dLCritically sryd94-64Azo [facility] on above:Performed By: #### LIPID, CMP #### [facility] [address] [place] [address] Dr. Christiano Ramiresesterol in LDL [Mass/Vol]106.8 mg/dLFayette County Memorial HospitalComformerly [facility] on above:Performed By: #### LIPID, CMP #### [facility] [address] [place] [address] Dr. Yilan ChangCholesterol.total/Cholesterol in HDL [Mass ratio]2.8 {ratio} NormalMercy Health Fairfield HospitalComment on above:Performed By: #### LIPID, CMP #### [facility] [address] [address] [address] Christiano Downs NORMAL> or = 60 mg/dl - LOW CARDIOVASCULAR RISK <40 mg/dl - HIGH CARDIOVASCULAR RISKFayette County Memorial HospitalComment on above:Performed By: #### LIPID, CMP #### [facility] [address] [address] [address] Christiano WilliamLDL CALC NORMALSEE BELOWFayette County Memorial HospitalComment on above:Result Comment: <100 mg/dl OPTIMAL 100 - 129 mg/dl NEAR OR ABOVE OPTIMAL 130 - 159 mg/dl BORDERLINE HIGH 160 - 189 mg/dl HIGH >190 mg/dl VERY HIGH Performed By: #### LIPID, CMP #### [facility] [address] [address] [address] Christiano WilliamTriglyceride [Mass/Vol]36 mg/dLNormal<=150[facility] Comment on above:Performed By: #### LIPID, CMP #### [facility] [address] [address] [address] Christiano LevineLDL CALC7.2 mg/dLNoPremier Health Atrium Medical CenterComment on above: Performed By: #### LIPID, CMP #### [facility] [address] [address] [address] Christiano WilliamPROF 14(COMP METB)on 23-76-8769Gnijfso [Mass/Vol]3.7 g/dLNormal 3.4-5.0Mer[facility] Fairfield HospitalComment on above:Performed By: #### LIPID, CMP ####[facility] [address] [address]Dr. Christiano WilliamAlbumin/Globulin [Mass ratio]1.1 {ratio}NormalMercy Health Fairfield Hospital Comment on above:Performed By: #### LIPID, CMP ####[facility] [address] [address]Dr. Christiano WilliamALP [Catalytic activity/Vol]53 U/VPddzhs59-411Ztg [facility] CenterComment on above:Performed By: #### LIPID, CMP ####[facility] [address]coiyce[address] [place], [place] [address]Dr. Yilan ChangALT [Catalytic activity/Vol]28 U/L Ekxeau76-24Amh [facility] CenterComment on above:Performed By: #### LIPID, CMP ####[facility] Svsmuggmsk[address] [place], [place] [address]Dr. Yilan ChangAnion gap [Moles/Vol]12.8 mmol/LNormalThe [facility] CenterComment on above:Performed By: #### LIPID, CMP ####[facility] Xewcnkiajn[address] [place], [place] [address]Dr. Yilan ChangAST [Catalytic activity/Vol]22 U/L Uszuti92-47Epa [facility] CenterComment on above:Performed By: #### LIPID, CMP ####[facility] Axuggvwkdz[address] [place], [place] [address]Dr. Yilan ChangBilirubin [Mass/Vol]0.5 mg/dLNormal0.2-1.0The [facility] Comment on above:Performed By: #### LIPID, CMP ####[facility] [address]swu[address] [place], [place] [address]Dr. Yilan ChangCalcium [Mass/Vol]8.7 mg/dLNormal8.5-10.1The [facility] CenterComment on above:Performed By: #### LIPID, CMP ####[facility] [address] [place], [place] [address]Dr. Yilan ChangChloride [Moles/Vol]103 mmol/LNormal 98-107The [facility] CenterComment on above:Performed By: #### LIPID, CMP ####[facility] [address] [place], [place] [address]Dr. Yilan ChangCO2 [Moles/Vol]26.7 mmol/VJruqgw69.0-32.0The [facility] CenterComment on above:Performed By: #### LIPID, CMP ####[facility] [address]wrwsfwo[address] [place], [place] [address]Dr. Yilan ChangCreatinine [Mass/Vol]1.02 mg/dLNormal0.70-1.30The [facility] CenterComment on above:Performed By: #### LIPID, CMP ####[facility] [address] [address]Dr. Yilan ChangEGFR-AF AUSTRALIAN>60Normal>=60The [facility] CenterComment on above:Performed By: #### LIPID, CMP ####[facility] [address] [address]Dr. Yilan ChangEGFR-NON AF AUSTRALIAN>60Normal>=60 The [facility] CenterComment on above:Performed By: #### LIPID, CMP ####[facility] [address]ttjavfv[address] [place], [place] [address]Dr. Yilan William Globulin (S) [Mass/Vol]3.5 g/dLNormalThe [facility] CenterComment on above: Performed By: #### LIPID, CMP ####[facility] Lkbbvnpwuw[address] [place], [place] [address]Dr. Yilan ChangGlucose [Mass/Vol]110 mg/dLCritically tyto26-049Umc [facility] CenterComment on above:Performed By: #### LIPID, CMP ####[facility] Vbcjnresfb[address] [place], [place] [address]Dr. Yilan ChangPotassium [Moles/Vol]4.5 mmol/LNormal3.5-5.1The [facility] Comment on above:Performed By: #### LIPID, CMP ####[facility] P[address]bhfject[address] [place], [place] [address]Dr. Yilan ChangProtein [Mass/Vol]7.2 g/dLNormal6.4-8.2The [facility] CenterComment on above:Performed By: #### LIPID, CMP ####[facility] Isjrpurgr[address] [place], [place] [address]Dr. Yilan ChangSodium [Moles/Vol]138 mmol/LNormal 136-145The [facility] CenterComment on above:Performed By: #### LIPID, CMP ####[facility] [address] [address]Dr. Christiano ChangUrea nitrogen [Mass/Vol]9.0 mg/dLNormal7.0-18.0The [facility] Comment on above:Performed By: #### LIPID, CMP ####[facility] [address] [address]Dr. Christiano ChangUrea nitrogen/Creatinine [Mass ratio]8.8 mg/mgNormalThe [facility] CenterComment on above:Performed By: #### LIPID, CMP ####[facility] [address] [address]Dr. Christiano ChangIn office Testingon 40-38-1904Qc office [id number]#1.00CD:127[facility] AUTO DIFFon 55-35-0245LILA #0.1 103/ulNormal0.0-0.1The [facility] CenterComment on above:Performed By: #### CBC #### [facility] [address] [address] [address] Christiano WilliamBasophils/100 WBC (Bld)1.2 %Normal0.2-2.0[facility] Comment on above:Performed By: #### CBC #### [facility] [address] [address] [address] Christiano Sanders #0.1 103/ulNormal0.0-0.7The [facility] CenterComment on above: Performed By: #### CBC #### [facility] [address] [address] [address] Christiano Lipscombosinophils/100 WBC (Bld)2.6 %Normal0.9-7.0The [facility] Comment on above:Performed By: #### CBC #### [facility] [address] [address] [address] Christiano Lipscombrythrocyte distribution width (RBC) [Ratio]12.3 %Wwoirn74.0-15.0 The [facility]opedic CenterComment on above:Performed By: #### CBC #### [facility] [address] [address] [address] Christiano WilliamHematocrit (Bld) [Volume fraction]40.7 %Critically low42.0-54.0 The [facility] CenterComment on above:Performed By: #### CBC #### [facility] [address] [place] [address] Dr. Christiano WilliamHemoglobin (Bld) [Mass/Vol]14.1 g/eKXhcooq95.0-18.0The [facility] HospitalComment on above:Performed By: #### CBC #### [facility] [address] [place] [address] Dr. Christiano Hodge #0.01 10e3/ulNormal0.00-0.03The [facility] CenterComment on above:Performed By: #### CBC #### [facility] [address] [place] [address] Dr. Christiano Hodge %0.2 %Normal0.0-0.5The [facility] CenterComment on above: Performed By: #### CBC #### [facility] [address] [place] [address] Dr. Christiano Shi #1.0 103/ulCritically low1.2-3.8The [facility] Comment on above:Performed By: #### CBC #### [facility] [address] [place] [address] Dr. Christiano Cagemphocytes/100 WBC (Bld)24.4 %Ojutzd40.5-60.0The [facility] CenterComment on above:Performed By: #### CBC #### [facility] [address] [address] [address] Christiano WilliamMANUAL DIFF REQNONormalThe [facility] CenterComment on above: Performed By: #### CBC #### [facility] [address] [place] [address] Dr. Christiano Vega (RBC) [Entitic mass]33.7 qbJcmeak43.9-34.0The [facility] HospitalComment on above:Performed By: #### CBC #### [facility] [address] [address] [address] Christiano ChambersHC (RBC) [Mass/Vol]34.6 g/yGBsetuy39.9-35.2The [facility] CenterComment on above:Performed By: #### CBC #### [facility] [address] [address] [address] Christiano ChambersV (RBC) [Entitic vol]97.4 fLCritically high80.0-94.0The [facility] CenterComment on above:Performed By: #### CBC #### [facility] [address] [place] [address] Dr. Christiano Marsh #0.5 103/ulNormal0.3-0.8The [facility] CenterComment on above:Performed By: #### CBC #### [facility] [address] [place] [address] Dr. Christiano Romoocytes/100 WBC (Bld)10.5 %Normal1.7-12.0The [facility] Comment on above:Performed By: #### CBC #### [facility] [address] [place] [address] Dr. Christiano Fountain #2.6 103/ulNormal1.4-6.5The [facility] CenterComment on above:Performed By: #### CBC #### [facility] [address] [address] [address] Christiano Collierutrophils/100 WBC (Bld)61.1 %Emfvko31.0-75.0The [facility] CenterComment on above:Performed By: #### CBC #### [facility] [address] [address] [address] Christiano Alvarezlet mean volume (Bld) [Entitic vol]9.9 fLNormal9.5-13.5The [facility] CenterComment on above:Performed By: #### CBC #### [facility] [address] [address] [address] Christiano WilliamPLT241 103/uvJjxque245-773Hbv [facility] CenterComment on above: Performed By: #### CBC #### [facility] [address] [address] [address] Christiano WilliamRBC4.18 106/ulCritically low4.70-6.10The [facility] CenterComment on above:Performed By: #### CBC #### [facility] [address] [address] [address] Christiano WilliamWBC4.3 103/ulNormal4.0-11.0The [facility] CenterComment on above: Performed By: #### CBC #### [facility] [address] [address] [address] Christiano Rolle CHEM 8 (BAS METB)on 94-91-3065Lkbeg gap [Moles/Vol]16.5 mmol/LNormalThe [facility] CenterComment on above:Performed By: #### BMP ####[facility] [address] [place], [place] [address]Dr[place] Alvarado ChangCalcium [Mass/Vol]9.1 mg/dLNormal8.5-10.1The [facility] CenterComment on above:Performed By: #### BMP ####[facility] [address]ux[address] [place], [place] [address]DrAmeena ChangChloride [Moles/Vol]104 mmol/LNormal 98-107The [facility] CenterComment on above:Performed By: #### BMP ####[facility] [address]plxf[address] [place] [address] ChangCO2 [Moles/Vol]22.3 mmol/FBzrabw09.0-32.0The [facility] CenterComment on above: Performed By: #### BMP ####[facility] Jenmxizgwz[address] [place], [place] [address]DrAmeena ChangCreatinine [Mass/Vol]0.97 mg/dLNormal 0.70-1.30The [facility] CenterComment on above:Performed By: #### BMP ####[facility] Sl[address] [place], [place] [address]DrIndiana Alvarado ChangEGFR-AF AUSTRALIAN>60Normal>=60The [facility] CenterComment on above: Performed By: #### BMP ####[facility] [address] [address]Dr.Christiano ChangEGFR-NON AF AUSTRALIAN>60Normal>=60The [facility] CenterComment on above:Performed By: #### BMP ####[facility] [address] [address]Dr.Christiano ChangGlucose [Mass/Vol]100 mg/oJTtqwtd93-745Jhk [facility] CenterComment on above:Performed By: #### BMP ####[facility] [address] [address]Dr.Christiano ChangPotassium [Moles/Vol]4.8 mmol/LNormal3.5-5.1The [facility] CenterComment on above:Performed By: #### BMP ####[facility] Opfyphmvto[address] [place], [place] [address]Dr.Christiano ChangSodium [Moles/Vol]138 mmol/QCflhes520-973Dkf [facility] CenterComment on above: Performed By: #### BMP ####[facility] Z[address] [place] [address] ChangUrea nitrogen [Mass/Vol]8.0 mg/dLNormal 7.0-18.0The [facility] CenterComment on above:Performed By: #### BMP ####[facility] [address]ycshycgiu[address] [place], [place] [address]DrInd[place] Alvarado ChangUrea nitrogen/Creatinine [Mass ratio]8.2 mg/mgNormalThe [facility] CenterComment on above:Performed By: #### BMP ####[facility] Y[address]ggeup[address] [place], [place] [address]Dr.Yilan WilliamPROTIMEon 82-83-0515NFC Coag (PPP) [Relative time]0.97 {INR}NormalThe [facility] Comment on above:Performed By: #### PT, PTT #### [facility] [address] [address] [address] Christiano Gonzalez [facility] BELOWNoPremier Health Atrium Medical CenterComment on above:Result Comment: DESIRED INR: 2.0 - 3.0 CONDITIONS NOT LISTED BELOW 2.5 - 3.5 FOR PROSTHETIC HEART VALVE REPLACEMENT 2.5 - 3.5 RECURRENT THROMBOSIS Performed By: #### PT, PTT #### [facility] [address] [place] [address] Dr. Christiano Saravia Coag (PPP) [Time]10.5 sNormal9.0-11.6The [facility] Comment on above:Performed By: #### PT, PTT #### [facility] [address] [place] [address] Dr. Christiano Manuel [id number] Coag (Bld) [Time]29.0 rOizpmb61.3-36.2[facility] HospitalComment on above:Performed By: #### PT, PTT #### [facility] [address] [place] [address] Dr. Christiano Pino METABOLIC PANELon 87-94-9008Aomdk gap [Moles/Vol]12 mmol/L Oipngp90-44Few [facility] SystemComment on above:Performed By: #### CH8, ETOH #### [facility] [address] [place] [address], [address]Edfesea [Mass/Vol]8.0 mg/dLLow8.4-10.4The [facility] Hospital SystemComment on above:Performed By: #### CH8, ETOH #### [facility] [address] [place] [address], [address]Koyvwuue [Moles/Vol]105 mmol/IChxnuk40-961Zzw [facility] SystemComment on above:Performed By: #### CH8, ETOH #### [facility] [address] [place] [address], [address]XB0 [Moles/Vol]20 mmol/FMss17-70Ufu [facility] Comment on above:Performed By: #### CH8, ETOH #### [facility] [address] [place] [address], [address]Rmxnfgumwi [Mass/Vol]0.81 mg/dLNormal0.80-1.30The [facility] IslandroHealth SystemComment on above:Performed By: #### CH8, ETOH #### [facility] [address] [place] [address], [phone] GFR (CKD-EPI)97 mL/min/1.73sqmNormal>=60The [facility] IslandroHealth SystemComment on above:Performed By: #### CH8, ETOH #### [facility] [address] [place] [address], [address]Jtqxnxj [Mass/Vol]86 mg/bYPartrg35-366Jmd [facility] CenterHealth SystemComment on above:Performed By: #### CH8, ETOH #### [facility] [address] [place] [address], [address]Hcugsbxqh [Moles/Vol]4.0 mmol/LNormal3.3-5.3The [facility] IslandroHealth SystemComment on above:Performed By: #### CH8, ETOH #### [facility] [address] [place] [address], [address]Iajshw [Moles/Vol]133 mmol/KZqb518-429Qxn [facility] CenterHealth SystemComment on above:Performed By: #### CH8, ETOH #### [facility] [address] [place] [address], [address]Wbku nitrogen [Mass/Vol]9 mg/dLNormal8-22The [facility] SystemComment on above:Performed By: #### CH8, ETOH #### [facility] [address] [place] [address], [address]XSM WITH DIFFERENTIALon 60-36-9801Vyxrpqyec (Bld) [#/Vol]0.02 10*3/uLNormal0.00-0.20The [facility] CenterHealth SystemComment on above: Performed By: #### CBCDSAT ####[facility] [address]FUYUYRI[address] [place] [address], [address]Aiuukmhoi/100 WBC (Bld)0.2 %Normal<=1.9The [facility] SystemComment on above:Performed By: #### CBCDSAT ####[facility] XYOPBOMOFT[address] [place] [address], [place], [address]Limhopydaju (Bld) [#/Vol]0.05 10*3/uLNormal0.00-0.70The [facility] SystemComment on above: Performed By: #### CBCDSAT ####[facility] PAKLLCGMTR[address] [place] [address], [address]Sezghaowzyw/100 WBC (Bld)0.5 %Normal0.1-4.0The [facility] CenterHealth SystemComment on above:Performed By: #### CBCDSAT ####[facility] SXKYJRYTDP[address] [place] [address], [address]Cqqrmdbheoy distribution width (RBC) [Ratio]12.0 %Lukiwk05.5-14.5The [facility] Comment on above:Performed By: #### CBCDSAT ####[facility] WZCSVOFUDC[address] [place] [address], [address]Zjuobxlkwq (Bld) [Volume fraction]36.0 %Low41.0-53.0The [facility] SystemComment on above:Performed By: #### CBCDSAT ####[facility] GOUATHWMMZ[address] [place] [address], Hemoglobin (Bld) [Mass/Vol]12.3 g/dLLow13.9-16.3The [facility] SystemComment on above:Performed By: #### CBCDSAT ####[facility] KXJUZDVYMW[address] [place] [address], [address]Dqtlnbtsfdu (Bld) [#/Vol]0.56 10*3/uLLow1.00-4.80 The [facility] SystemComment on above:Performed By: #### CBCDSAT ####[facility] RDHNBAQBBO[address] [place] [address], Lymphocytes/100 WBC (Bld)5.9 %Low24.0-44.0The [facility] SystemComment on above:Performed By: #### CBCDSAT ####[facility] YBFXKTXBXY[address] [place] [address], [address]OCA (RBC) [Entitic mass]33.4 cuDiiblb50.0-34.0The [facility] CenterHealth SystemComment on above:Performed By: #### CBCDSAT ####[facility] VWIHOOZAAF[address] [place] [address], [address]RCYH (RBC) [Mass/Vol] 34.1 g/lFAfblqm82.0-35.9The [facility] SystemComment on above:Performed By: #### CBCDSAT ####[facility] TCLVDXHGTE[address] [place] [address], [address]ERF (RBC) [Entitic vol]98 zZHzttln83-019Mlp [facility] SystemComment on above:Performed By: #### CBCDSAT ####[facility] XGMXMFQRGN[address] [place] [address], [address]VQTDJWPA DISTRIBUTION HRYSU84Htkopf<=20The [facility] SystemComment on above:Performed By: #### CBCDSAT ####[facility] [address]JQRGL[address] [place] [address], [address]Ckyxnocfm (Bld) [#/Vol] 0.48 10*3/uLNormal0.20-1.00The [facility] SystemComment on above:Performed By: #### CBCDSAT ####[facility] KT[address]FAVY[address] [place] [address], [address]Yylcbvacd/100 WBC (Bld)5.1 %Normal2.0-11.0The [facility] Comment on above:Performed By: #### CBCDSAT ####[facility] ZZAZ[address]YDXX[address] [place] [address], [address]Csaltxmmhvg (Bld) [#/Vol]8.38 10*3/uL High1.50-8.00The [facility] SystemComment on above:Performed By: #### CBCDSAT ####[facility] [address]XSMVUSN[address] [place] [address], Neutrophils/100 WBC (Bld)88.4 %High31.0-76.0The [facility] SystemComment on above:Performed By: #### CBCDSAT ####[facility] [id number] [place] [address], [phone] mean volume (Bld) [Entitic vol]8.7 fL Normal7.5-11.2The [facility] SystemComment on above:Performed By: #### CBCDSAT ####[facility] [id number] [place], [place], Platelets (Bld) [#/Vol]182 10*3/pMTaindf449-545Swf [facility] SystemComment on above:Performed By: #### CBCDSAT ####[facility] AGZPMBTWIY7039 [place], [address]AVU (Bld) [#/Vol]3.67 10*6/uLLow4.50-5.90The [facility] SystemComment on above:Performed By: #### CBCDSAT ####[facility] [id number] [place], [address]AJA (Bld) [#/Vol]9.5 10*3/uLNormal4.5-11.5The [facility] SystemComment on above:Performed By: #### CBCDSAT ####[facility] LEYXMQEMJY2650 [place], [address]BP HEAD W/O CONTRASTon 46-02-2666WZ HEAD W/O CONTRASTEXAMINATION: CT HEAD W/O CONTRAST CLINICAL HISTORY: Reason for Exam: [...] acute intracranial abnormality. Left scalp hematoma. MACRO: NoneNormalThe [facility] Hospital SystemConsultson 24-87-9314Xjhciolwkxead Authentication Interface Message TextNEUROSURGERY CRANIAL TRAUMA H AND P Patient Name: [...] cephalohematoma with arterial bleed repaired in ED. Antiplatelet/Anticoagulant: denies Coags: 1.10 INR, 12.2 PT, 23 [...] Type and Screen, PT/INT, PTT) -Hold all antiplatelets/anticoagulants -Plts >100, INR <1.4 -Normonatremia, normothermia (<38.0 C) , euvolemia -SCDs only at this time for DVT prophylaxis. Hold SQH at this time -No acute neurosurgical intervention. Will continue to follow Patient was seen and examined within 30 minutes of consultation and will be discussed with staff shortly. Please call anytime with questions or concerns. Mala Duncan PA-C Neurosurgery Pager [phone] VA Medical Center SystemED Noteson 15-42-1737Qoffkarcrwwzy Authentication Interface Message TextPatient up in wheelchair and refusing to get back into bed.NormalThe [facility] Hospital SystemED Provider Noteson 02-20-2021 Director Of Medicare Authentication Interface Message Text HISTORY OF PRESENT ILLNESS 02/19/2021, 10:10 PM. Category: 2 The patient [...] with arterial bleeding. Patient initially seen at [facility]. Patient was found to have a subarachnoid hemorrhage at the OS. Cervical spine was cleared. Laceration repair of the head wound was performed. Patient refused transfer to [facility] and was combative and required medical sedation with 70 mg of ketamine and 4 mg of versed by Wisr. Pre hospital information: patient placed in c-collar. REVIEW OF SYSTEMS Review of Systems A complete Review of Systems is unable to be obtained due to the patient's altered mentation from intoxication and sedating medications administered while with [facility] PAST HISTORY Past Medical History: unable to be obtained [...] Palpable bilateral PT Spine precautions: C-Collar Total [place] Coma Scale: 13 Eyes: eyes open to [...] formulation of plan. --- (more content not included)...[facility] PacinianED Triage Noteson 56-72-9844Ejwppyegjqnzz Authentication Interface Message TextPrehospital Medications: See Powered Outcomes documentation for medication information. [employer] gave patient 70mg Ketamine, and 4mg versed for being combative. [facility] [facility] PacinianTranscription Authentication Interface Message Text Patient was drinking this evening and fell down an unknown amount of stairs. Patient had a +LOC for about 5 minutes according to family. Patient was a tranfers from [place].NormalThe [employer]ishments SystemETHANOL, SERUMon 92-00-3510Tqxkewv [Mass/Vol]114 mg/dLHighNone DetectedThe [facility] Comment on above:Performed By: #### CH8, ETOH #### [facility]ORAT[facility] [address] [place], [address]TSZ3 HIV2 AGAB SCRNon 61-13-9568UNP AG-AB SCREEN Igp-VphdizioDbhdidWkz-SxpyxmgeBuz [facility] SystemComment on above:Order Comment: HIV Information: ???[place] Rev. code 3701.243(E):This information has been disclosed to you from confidential records protected from disclosure by state law. ???You shall make no furtherdisclosure of this information without the specific, written, and informed release of the individual to whom it pertains, or as otherwise permitted by state law. ???A general authorization for the release of medical or other information is not sufficient for the purpose of the release of HIV test results or diagnoses.Result Comment: No laboratory evidence for HIV Infection. Negative result does not rule out acute HIV infection. If acute HIV infection is suspected, recommend ordering an HIV-1 RNA quanitification test.Performed By: #### hiv1 hiv2 agab scrn ####[facility] SOKCATXUCC[address] [place], [address]ZEQNHY ACIDon 02-20-2021 CR LACT1.9 mmol/LNormal0.5-2.0The [facility] SystemComment on above:Performed By: #### LACT #### [facility]OR[facility] [address] [place], [address]DYULSEE THROMBOPLASTIN TIMEon 24-21-3729oDVV Coag (Bld) [Time]23 nWty72-96Sxl [facility] SystemComment on above:Performed By: #### APTT, PT #### [facility]OR[facility] [address] [place], [address]EFZMQBJWKCP TIME AND INRon 44-11-4563BCA Coag (PPP) [Relative time]1.10 {INR}Normal0.90-1.10The [facility] SystemComment on above: Performed By: #### APTT, PT #### [facility] [address] [place] [address], [address]HC Coag (PPP) [Time]12.2 sNormal9.7-12.9The [facility] IslandroHealth SystemComment on above:Performed By: #### APTT, PT #### S PATHOLOGY LABORATORY [address] [place] [address], [address]Ebdgwrot Noteson 25-28-5515Vpshxfcczwaoy Authentication Interface Message TextCAT 2: Fall Pt is a 60 year [...] left a voicemail for pt's Grecia Pinon [phone] providing an update. Plan: likely admit Jalyn Tripathi CHUCK SPLITTER, GLOVE WRAPPER ED Press Operator Meat Pager: [phone] X [phone] VA Medical Center SystemTYPE AND SCREENon 02-09-0057VUN and Rh group Nom (Bld)Blood group O Rh(D) positiveNormSpotsylvania Regional Medical CenterroLutheran Hospital SystemComment on above:Performed By: #### TS #### [facility] [address] [place] [address], [address]RJL and Rh group Nom (Bld)No Previous ResultsNoCincinnati VA Medical Center SystemComment on above:Performed By: #### TS #### [facility]OR[facility] [address] [place] [address], [address]RFAZ INTNegativeNormLima City Hospitale [facility] IslandroLutheran Hospital SystemComment on above:Performed By: #### TS #### [facility] [address] [place] [address], Vital Signs Date TimeVital SignValuePerforming DgjfhmztcUinaygqw30-18-2679 14:40-0400Body yrumjj311.72 cmThe [facility]05-02-2025 14:40-0400Body mass index (BMI) [Ratio]30.2 kg/u2SguuchjlmThe [facility]05-02-2025 14:40-0400Body hfeczx29.26 kgThe [facility]05-02-2025 14:40-0400Diastolic blood ubmvjicb97 mm[Hg][facility] 08-14-2024 14:40-0400Heart rate78 /[facility] 08-14-2024 14:40-0400Respiratory rate12 /[facility] 08-14-2024 14:40-0400Systolic blood bvacebka374 mm[Hg][facility]11-01-2024 14:33-0400Body fcpiwe268.72 cmThe [facility]11-01-2024 14:33-0400Body mass index (BMI) [Ratio]31.1 kg/d1UwktrobhzThe [facility]11-01-2024 14:33-0400Body eheajqewtqp62.3 [degF][facility]11-01-2024 14:33-0400Body ixzqyy81.98 kgThe [facility]11-01-2024 14:33-0400Diastolic blood axettamw80 mm[Hg] [facility]11-01-2024 14:33-0400Heart rate80 /[facility]11-01-2024 14:33-0400Systolic blood mm[Hg] [facility]04-30-2024 08:41-0400Body .72 cm [facility]04-30-2024 08:41-0400Body mass index (BMI) [Ratio]31.3 kg/u9DktgnhxikThe [facility]04-30-2024 08:41-0400Body nbxnog82.49 [facility]04-30-2024 08:41-0400Diastolic blood xxkpfkem36 mm[Hg][facility]04-30-2024 08:41-0400 Heart rate71 /[facility]04-30-2024 08:41-0400 Respiratory rate12 /[facility]04-30-2024 08:41-0400 Systolic blood yevcubhi789 mm[Hg][facility]12-15-2023 14:30-0500Body zvuugp554.72 cmBenjamin Ball Other [employer] Other 12-15-2023 14:30-0500Body mass index (BMI) [Ratio] 30.16 kg/d2Mwktygru Ball Other [employer] Other 12-15-2023 14:30-0500Body .99 kgBenjamin Ball Other [employer] Other 12-15-2023 14:30-0500Diastolic blood tnuafdop09 mm[Hg] Stevie Ball Other [employer] Other 12-15-2023 14:30-0500Respiratory rate12 /minBenjamin Ball Other [employer] Other 12-15-2023 14:30-0500Systolic blood jyccrces052 mm[Hg] Stevie Ball Other [employer] Other 08-07-2023 15:30-0400Body yiyeyk599.72 cmBenjamin Ball Other [employer] Other 08-07-2023 15:30-0400Body mass index (BMI) [Ratio] 28.73 kg/e0Pohcsiux Ball Other [employer] Other 08-07-2023 15:30-0400Body sxfdem92.73 kgBenjamin Ball Other [employer] Other 08-07-2023 15:30-0400Diastolic blood nejsdclq635 mm[Hg]Stevie Ball Other [employer] Other 08-07-2023 15:30-0400Respiratory rate12 /minBenjamin Ball Other [facility] [employer] Other 08-07-2023 15:30-0400Systolic blood tdyulizi784 mm[Hg] Stevie Ball Other [facility] [employer] Other 04-26-2023 16:30-0400Body .72 cmBenjamin Ball Other [facility] [employer] Other 04-26-2023 16:30-0400Body mass index (BMI) [Ratio] 29.56 kg/p2Nljqiovn Ball Other [facility] [employer] Other 04-26-2023 16:30-0400Body zlyulq90.18 kgBenjamin Ball Other [place] [employer] Other 04-26-2023 16:30-0400Diastolic blood ltyvfvjp23 mm[Hg] Stevie Ball Other [facility] [employer] Other 04-26-2023 16:30-0400Respiratory rate12 /minBenjamin Ball Other [facility] [employer] Other 04-26-2023 16:30-0400Systolic blood thkfeiaf722 mm[Hg] Stevie Ball Other [employer] Other 05-23-2022 14:11-0400Blood Pressure LocationPazoëciaran LOYD [facility] 05-23-2022 14:11-0400Diastolic blood stessutg74 mm[Hg] Bora LOYD [facility] 05-23-2022 14:11-0400Heart khod370 /minPatrick LOYD [facility] 05-23-2022 14:11-0400Systolic blood mm[Hg] Bora LOYD [facility] 05-06-2022 13:54-0400Blood Pressure LocationMichael NILL [facility] 05-06-2022 13:54-0400Diastolic blood lvinsbkk63 mm[Hg] Janusz NILL [facility] 05-06-2022 13:54-0400Heart rate80 /minMichael NILL [facility] [place] 05-06-2022 13:54-0400Respiratory rate16 /minMichael NILL [facility] 05-06-2022 13:54-0400Systolic blood cewqhkgq065 mm[Hg] Janusz NILL [facility] Encounters Encounter DateEncounter TypeCare ProviderFacilityStart: 08-14-2024 End: 92-69-5676nrvdaugxrfUkksfcabf [facility] Work Phone: Start: 08-14-2024 End: 07-49-8637Ygtyxghxl for general adult medical examination without abnormal findingsSumma Healthtart: 08-14-2024 End: 57-57-6752Zooslkb [facility] Work Phone: start: 44-17-5331Dor-patient / Non-visitNov[facility] Work Phone: Start: 03-00-2958Hwzsxvt encounter statusSumma Healthtart: 02-14-2024 End: 20-17-2203edywvarjnrYjfygevlzMorrow [facility] Hospital Work Phone: Start: 02-14-2024 End: 47-50-4717Ybpxgdz encounter procedureFirsovah [facility] Work Phone: Start: 45-43-3326Wem-patient / Non-visitNov[facility] Work Phone: Start: 08-13-2023 End: 98-22-6110lyufhubiszJtaedggzoMorrow County Hospital Work Phone: Start: 08-13-2023 End: 73-81-2715Nkmvqaduv for general adult medical examination without abnormal findingsSumma Healthtart: 08-13-2023 End: 01-19-8514Fnfftwp encounter procedureNov[facility] Work Phone: Start: 21-51-9153Crm-patient / Non-visitNov[facility] Work Phone: Start: 03-29-2023 End: 06-45-7556gtduzyzkdmKdtnebnd Cale Other [employer] Other Start: 63-62-9261Rbtahy outpatient visit 15 minutes Stevie CaleJYOTIAnais Madsen Medical ClinicStart: 03-28-2023 End: 52-24-2526tqdrjyzmmeKgbj T AMESFacility:[facility] Start: 02-20-2023 End: 78-88-9925adkursrgxvZoyndozz Cale Other [employer] Other Start: 20-98-5585Jawkrhrdm encounterBenjamin BallFPG Ball Medical ClinicStart: 01-23-2023 End: 83-60-7648euljzrvabaAorfziwe Ball Other [employer] Other Start: 66-88-9927Nkdeborwd encounterBenjamin BallFPG [facility] Medical ClinicStart: 12-28-2022 End: 46-71-2603jkxuxlatzoYimnzbmd Ball Other [employer] Other Start: 21-45-1731Wjokzaphm encounterBenjamin BallFPG [facility] Medical ClinicStart: 12-10-2022 End: 31-60-3462jcixrmmmfbYmiuaumt Ball Other [employer] Other Start: 45-76-7389Hcdljdtti encounterBenjamin BallFPG [facility] Medical ClinicStart: 11-19-2022 End: 95-10-3260eshgehdvihQsjytcxc Ball Other [employer] Other Start: 67-16-5328Opghju outpatient visit 25 minutes Stevie BallFPG [facility] Medical ClinicStart: 09-06-2022 End: 44-91-4050xjmdoicdbfAddlwcbg Ball Other [employer] Other Start: 82-58-5238Lbzvdmvuw encounterBenjamin BallFPG [facility] Medical ClinicStart: 08-27-2022 End: 83-25-9845qlnlzqatmwOggzrayc Ball Other [employer] Other Start: 60-87-1611Vgptrlruj encounterBenjamin BallFPG [facility] Medical ClinicStart: 08-24-2022 End: 82-66-6358tujpwewhvnXI STEVIE MADSENFacility:A6Tmavt: 30-76-1279Vwdciymke for general adult medical examination without abnormal findingsDR STEVIE MADSEN [facility]: 08-08-2022 End: 19-47-5856rfjmyzhvyiTwsjnrdj Ball Other [employer] Other Start: 98-62-4842Nfrlyncnm for general adult medical examination without abnormal findingsStevie Madsen Medical ClinicStart: 63-30-5612Zcnauzmh preventive med est patient 40-64yrsBelupillo Madsen Medical ClinicStart: 08-03-2022 End: 04-14-4652oughojbzroCN STEVIE MADSENFacility:A7Dodti: 08-03-2022 End: 70-52-8501Vmpoizfpr for general adult medical examination without abnormal findingsDR STEVIE MADSENFacility:L3Wlqyh: 10-20-2021 End: 49-31-4263Gxnhxwi encounter procedurePatrick R EVERT [facility] start: 10-69-3120Jwmnchksp for preprocedural cardiovascular examinationDR BORA LOYD .[facility] [place] HospitalStart: 99-96-7451Ladrujlqs for preprocedural laboratory examinationDR BORA LOYD . [facility] Hospitaltart: 09-20-2021 End: 07-02-1065nfzgsfliltSW JANUSZ BRADY .Facility:R5Gpeoj: 09-14-2021 End: 57-33-2447qagbakowgfBA BORA LOYD .Facility:X3Qvotq: 09-13-2021 End: 90-64-5676iaaplriucbVI BORA LOYD .Facility:P3Zxfaf: 09-13-2021 End: 89-25-8141Wpuhcefyc for preprocedural laboratory examinationDR BORA LOYD .Facility:V8Aboen: 09-04-2021 End: 48-21-2087Fbxqyuj encounter procedurePatrick R LOYD [facility] start: 08-18-2021 End: 76-91-7458Moskvph encounter procedureMichael R NILL [facility] Nill/[facility] [place] Start: 85-48-7008Khfgm health examinationBelupillo Madsen Other [facility] [employer] Other Start: 88-31-6134Yvigodlxd for general adult medical examination without abnormal findingsStevie Madsen Other [facility] [employer] Other Start: 02-20-2021 End: 79-72-7352xzekjoaerpCGSNHXE PROVIDERFacility:METROHealthStart: 02-20-2021 End: 97-01-9284Vrmvxyeuy department patient visitNIPAMELA ESPINOSAEL [facility]Start: 03-72-9011lfbscrdhflAFPDGFQ PROVIDER Facility:[facility] Procedures DateProcedureProcedure DetailPerforming ClinicianStart: 37-79-6216PTL screening DR STEVIE MADSENComchika on above:Performed By: #### PSASC #### [facility] [address] [place] [address] Dr. Christiano WilliamStart: 43-46-8957Ajeglgdf of spermatocelePatrick LOYD Start: 83-96-6993HagsyhkfmntDlozfhl IGORL Depression screeningStevie Madsen Other Screening for cancerStevie Madsen Other Immunizations Immunization DateImmunizationNotesCare EqvvvgauHutxcuou84-63-9392vmybotiys, seasonal, injectable, preservative [facility] 35-21-5029KUJAL-19, mRNA, LNP-S, PF, 30 mcg/0.3 mL dose; Translations: [[employer] COVID-19 Vaccine]Janusz COSTADiane [facility] Comment on above:Reason for Medication: Prophylaxis 41-06-3102ZQQEJ-19, mRNA, LNP-S, PF, 30 mcg/0.3 mL dose; Translations: [[employer] COVID-19 Vaccine]Janusz BRADY [facility] Comment on above:Reason for Medication: Prophylaxis 52-85-0176nyaathf toxoid, reduced diphtheria toxoid, and acellular pertussis vaccine, adsorbedMichael NILL [facility] Payers DatePayer CategoryPayerPolicy [id number] 2..[id number] 2..840.1.399551.3.57[id number] 2.16.840.1.404984.3.57[id number] 2.16.840.1.083113.3.57[id number] 2..840.1.061431.3.57[id number] 2.16.840.1.506707.3.57[id number] 2..840.1.067671.3.57[id number] 2.16.840.1.285522.3.579.2.18652-20-8379Mtzg Cross Blue [id number] Social History DateTypeDetailFacilityStart: 08-18-2021 End: 32-00-8873Pvahrpl smoking statusNever smoked tobacco (finding)[facility] Comment on above:uses snuffTobacco smoking status Smokeless tobacco user within last 30 daysGeneral Surgery [place] Comment on above:uses snuffSex Assigned At [facility] Start: 92-03-5553Urx Assigned At [facility] HospitalTobacc smoking status NHISUnknown if ever smoked [facility] Work Phone: Start: 23-03-1686BodWogc (finding)[facility] Functional Status IvpbLeaepvtazpEwvpojYzmoffwk72-15-7004Bdizbhtiph StatusN/AExec[facility] Clinical Notes 02-20-2021 to 03-29-2023 Note Date & OqrtPlebYfoynoza53-72-3662 Evaluation note* Encounter Date Diagnosis Assessment Notes Treatment Notes Treatment Clinical Notes Mar, Primary hypertension (ICD-10 - I10) Echo: 4.9cm - 08/2022 This patient is instructed to consume a healthy, low-fat, low-salt diet. They are also encouraged to continue exercise to achieve/maintain a normal BMI. Mar,icuspid aortic valve (ICD-10 - Q23.1)Explained increased risk of Serial Echocardiogram Mar,neurysm of ascending aorta without rupture (ICD-10 - I71.21) Maintain normal BP readings. Serial Echo to document stability. Mar,Mild episode of recurrent major depressive disorder (ICD-10 - F33.0) Healthy diet, exercise and keep active. Proper sleep routine. [employer] Other 10-11-2023 Evaluation note* Encounter Date Diagnosis Assessment Notes Treatment Notes Treatment Clinical Notes Jan, Primary hypertension (ICD-10 - I 10) [employer] Other 09-15-2023 Evaluation note* Encounter Date Diagnosis Assessment Notes Treatment Notes Treatment Clinical Notes Dec, Primary hypertension (ICD-10 - I 10) [employer] Other 08-28-2023 Evaluation note* Encounter Date Diagnosis Assessment Notes Treatment Notes Treatment Clinical Notes Nov, Primary hypertension (ICD-10 - I 10) [employer] Other 08-07-2023 Evaluation note* Encounter Date Diagnosis Assessment Notes Treatment Notes Treatment Clinical Notes Nov, Bicuspid aortic valve (ICD-10 - Q23.1) Reviewed results Explained that 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 Treatment would be adequate control of BP Nov,Elevated BP without diagnosis of hypertension (ICD-10 - R03.0)This patient is instructed to consume a healthy, low-fat, low-salt diet. They are also encouraged to continue exercise to achieve/maintain a normal BMI. Hesitant to start medical therapy since no one else has brought this to his attention in the past Patient is instructed on home BP measurements: - rest for 5 minutes w/o talking- positioned w/ feeton floor and arm supported- average best 2/3 readings w/ goal < 135-85 Nov,Overweight (ICD-10 - E66.3)This patient has been instructed on a low [...] exercise for 30 minutes, 3-5 times weekly. Nov,Fatigue, unspecified type (ICD-10 - R53.83)Explained this problem has a broad etiology Thyroid disease and Low testosterone haven't been checked - orders w/ instructions to have done at 8am given to patient Depression and HÉCTOR were also discussed - he admits to depression since 's [employer] Other 05-25-2023 Evaluation note* Encounter Date Diagnosis Assessment Notes Treatment Notes Treatment Clinical Notes August, Aneurysm of ascendin g aorta without rupture (ICD-10 - I71.21) ECHO: 4.9cm - 08/2022 [employer] Other 05-15-2023 Evaluation note* Encounter Date Diagnosis Assessment Notes Treatment Notes Treatment Clinical Notes August, SOB (shortness of breath) (ICD-1 0 - R06.02) August,hronic cough (ICD-10 - R05.3) August,ost COVID-19 condition, unspecified (ICD-10 - U09.9) [employer] Other 05-12-2023 NoteEXAMINATION: XR CHEST 2 V [...] Electronically authenticated by: OCTAVIO SANCHEZ Date: 2022-08-24 15:03[facility]04[facility]* Encounter Date Diagnosis Assessment Notes Treatment Notes Treatment Clinical Notes Jul, Wellness examination (ICD-10 - Z 00.00) Healthy diet and exercise. Reviewed age-appropriate preventive testing recommended. Jul,ost COVID-19 condition, unspecified (ICD-10 - U09.9)Healthy diet, consistent sleep habits, exercise. Dyspnea concerning for myocarditis and chronic interstitial lung disease. - recommend Echocardiogram to assess LV function - recommend CXR to r/o infiltrate or fluid Jul,enign prostatic hyperplasia with lower urinary tract symptoms (ICD- 10 - N40.1)Symptoms tolerable MARK and PSA yearly Jul,yspnea on exertion (ICD-10 - R06.09)Secondary to COVID - echocardiogram to assess cardiac function as possible source for dyspnea - CXR to assess for pulmonary source for dyspnea Jul,Nocturia (ICD-10 - R35.1) Jul,arotid bruit, unspecified laterality (ICD-10 - R09.89)Family hx of CVA - recommend carotid Jul,Family hx of colon cancer (ICD-10 - Z80.0)Serial scopes, last completed in 2021, repeat in 5 years Jul,Family history of CVA (ICD-10 - Z82.3)Primary prevention measures discussed. Nonsmoker Recheck BP at home w/ goal < 135/85 Check Carotid [employer] Other 07-08-2022 Hospital Discharge instructions Patient Education [...] 07/23/2016 Document Revised: 03/14/2018 Document Reviewed: 04/15/2016 [employer] Patient Education 2020 [employer]. Follow Up Care 09/04/2021 15:28:27 With:EVERT DEE, [place], URL Address: [address] [place], [place] [address]- When:Within 3 Month(s) [facility] 06-08-2022 NoteOPERATIVE NOTE OPERATION DATE: 09/20/2021 PREOPERATIVE [...] Approved by: DR JANUSZ BRADY . 09/21/2021 12:58:00[facility]05-23-20[facility] Hospital Discharge instructions Patient Education 09/04/2021 [...] Watch the hydrocele for any changes. Take fonn-jpf-dzhbtmb and prescription medicines only as told by [...] 09/19/2010 Document Revised: 04/12/2018 Document Reviewed: 04/12/2018 [employer] Patient Education 2020 [employer]. Follow Up Care 08/03/2021 10:14:47 With:EVERT DEE, [place], URL Address: [facility] [address] , [place] [address]- When: Unknown [facility] 11-08-2021 NoteDISCHARGE SUMMARY [address] [address] Reji Pinon Date of : 1960 60 year oldmale Attending Go Chaves MD Date of Admission 02/19/2021 Date of Discharge 02/20/21 DIAGNOSES: Scalp Laceration. PROCEDURES: None DISCHARGE MEDICATIONS: There are no discharge medications for this patient. Current Facility-Administered Medications: * lidocaine (LIDODERM) 5 % patch, 2 Patch, Transdermal, Every 24 hours, Alejandro Abad MD, 2 Patch at 02/19/21 9059 No current outpatient medications on file. [use for patients going to inpatient rehab only, otherwise delete this list of meds] REASON FOR HOSPITALIZATION: Fall from standing with suspected L sided SAH SIGNIFICANT FINDINGS: Catalog of Injuries - Scalp Laceration Incidental Findings None HOSPITAL COURSE: 60 year old male who presents to [facility] as a transfer from [facility] after a mechanical fall down stairs resulting in a possible small L sided SAH. Repeat CT head on [facility] did not showed such head bleeding. [...] prophylaxis due to: lack of traumatic injuries.[facility] [id number] NoteNeurosurgery Treatment Plan Note Repeat CTH does not demonstrate prior imaging finding from OSH. No acute neurosurgery intervention. No follow up necessary. Neurosurgery to sign off at this time. Please call anytime with questions or concerns. Mala Duncan PA-C Neurosurgery Service Pager: [phone] [id number] [facility] DIVISION OF ACUTE CARE SURGERY TRAUMA SURGERY HISTORY AND PHYSICAL Reji Pinon [id number] 02/19/21 BASIC INJURY INFORMATION: Level of activation: [...] down stairs. He was initially evaluated at [facility] where he was noted to have a small SAH which prompted his transfer to [facility]. Patient was positive for EtOH and [...] Gatherings with Friends and Family: * Attends [employer]: * Active Member of Clubs or Organizations: * Attends Club or Organization Meetings: * Marital Status: Intimate Partner Violence: * Fear of Current or Ex-Partner: * Emotionally Abused: * Physically Abused: * Sexually Abused: Living status: Home Primary language: Czech Functional status: Unknown Impairments: Unknown Assistive Devices [...] - 11.5 K/uL (more content not included)...[facility] [employer] [facility] Evaluation + Plan note Future Appointments Appointment Date:09/04/2021 02:00:00 PM Scheduled Provider:Bora LOYD MD Location:[facility] Appointment Type:URO New Patient General Surgery [place] Evaluation + Plan note Future Appointments Appointment Date:11/10/2021 08:00:00 AM Scheduled Provider:Bora LOYD MD Location:[facility] Appointment Type:URO Office Visit [facility] evaluation + Plan note Future Appointments Appointment Date:01/26/2022 09:30:00 AM Scheduled Provider:Bora LOYD MD Location:[facility] Appointment Type:URO Office Visit [facility] evaluation noteNo InformationNortDepartment of [facility] Other Evaluation note* Diagnosis Onset Date Resolution Status Benign prostatic hyperplasia with lower urinary tract symptoms acuteBicuspid aortic valveacuteHypertensionacuteMajor depressionacuteScreening PSA (prostate specific antigen)noneactiveWellness examinationnoneactive [facility] Work Phone: Evaluation note* Diagnosis Onset Date Resolution Status Benign prostatic hyperplasia with lower urinary tract symptoms acuteBicuspid aortic valveacuteHypertensionacuteMajor depressionacute [facility] Work Phone: Evaluation note* Diagnosis Onset Date Resolution Status Admit Date Benign prostatic hyperplasia with lower urinary tract symptoms acuteMay 2024 2:10pmBicuspid aortic valveacuteMay 2024 2:10pm HypertensionacuteMay 2024 2:10pmMajor depressionacuteMay 2024 2:10pm ObesityacuteMay 2024 2:10pmScreening PSA (prostate specific antigen)acute August 14, 2024 2:10pmWellness examinationnoneactiveMay 2024 2:10pm [facility] Work Phone: Hisgcpo general Narrative - Reported* Type Description Date Medical History Testicular cyst Medical HistorySpermatoceleMedical HistoryHydrocele, leftMedical HistoryChewing tobacco nicotine dependence without complicationMedical HistoryAcute pain of left shoulderMedical HistoryHydrocele in adultSurgical HistoryCOLONOSCOPY urgical HistoryLEFT [id number] HistorySEE SURGICAL HX [facility] Other Hiscyiw general Narrative - Reported* Type Description Date Medical History Testicular cyst Medical HistorySpermatoceleMedical HistoryHydrocele, leftMedical HistoryChewing tobacco nicotine dependence without complicationMedical HistoryAcute pain of left shoulderMedical HistoryHydrocele in adultMedical HistoryBicuspid aortic valveMedical HistoryAscending aortic aneurysmSurgical HistoryCOLONOSCOPY urgical HistoryLEFT [id number] HistorySEE SURGICAL HX [facility] Other Hospital course Narrative No data available for this section General [facility] Discharge instructions No data available for this section [facility] note No data available for this section [facility] Summary Purpose Family History Relationship Condition Age at Onset Recorded Date/T mariama father Heart disease Unknown Diabetes mellitusUnknownHypertensionUnknownNot SpecifiedFamily history of mental disorderUnknownMalignant neoplasmUnknownFamily history of colon cancerUnknown Relationship Condition Age at Onset Recorded Date/T mariama father Heart disease Unknown Diabetes mellitusUnknownHypertensionUnknownmotherFamily history of mental disorderUnknownMalignant neoplasmUnknownFamily history of colon cancerUnknown Advance Directives Advance Directive Response Recorded Date/ Time Advance Directives No May 13, 2023 1:52pm Chief Complaint and Reason for Visit Chief Complaint Wellness Reason for Visit Benign prostatic hyp erplasia with lower urinary tract symptoms Bicuspid aortic valve Hypertension Major depression Screening PSA (prostate specific antigen) Wellness examination Chief Complaint CC Adult Risk Strati fication 6 month follow upReason for VisitBenign prostatic hyperplasia with lower urinary tract symptoms Bicuspid aortic [...] and content) DATE CREATED AUTHOR 05/24/2021 [facility] DATE CREATED AUTHOR AUTHOR'S ORGANIZ ATION 08/25/2022 [facility] DATE CREATED AUTHOR AUTHOR'S ORGANIZ ATION 04/02/2023 [facility] Care Team (unrecognized sect ion and content) Team Status: Active Member Role Status Dates Stevie Madsen , DO Primary Care Provider Active Team Status: Active Member Role Status Dates Stevie Cale , DO Primary Care Provide r, Attending Provider Active Start: August 07, 2023 Team Status: Inactive Member Role Status Dates Stevie Cale , DO Primary Care Provide r, Attending Provider Active Start: August 13, 2023 End: August 13, 2023 Team Status: Active Member Role Status Dates Stevie Cale , DO Primary Care Provide r, Attending Provider Active Start: February 12, 2024 Team Status: Inactive Member Role Status Dates Stevie Cale , DO Primary Care Provide r, Attending Provider Active Start: February 14, 2024 End: February 14, 2024 Team Status: Active Member Role Status Dates Stevie Cale , DO Primary Care Provide r, Attending Provider Active Start: August 07, 2024 Team Status: Inactive Member Role Status Dates Stevie Cale , DO Primary Care Provide r, Attending [...] BE BASED ON THE PRIMARY CLINICAL RECORDS. [employer] [facility]. provides no warranty or guarantee of the accuracy or completeness of information in this document.
--- OUTSIDE RECORDS SUMMARY | 2025-02-10 16:29 | XMS_ITS | Clinical Summary ---
Author Organization [facility] Address [address] [place] [address] Care Team Providers Care System Controller Name Role Phone Unavailable Primary Care Provider Unavailabl e Source Comments The following information is NOT included in Care Everywhere downloads:Psychiatric notes, ECG results, Cardiac Rehab notes, Pulmonary Function notes, data from SmartForms (includes but not limited toPregnancy data,audiograms, eye exams, pre-surgical evaluation notes, well-child exam data).[facility] Allergies No known active allergies Resolved Problems ProblemNoted DateDiagnosed DateResolved DateSAH (subarachnoid hemorrhage) Immunizations ImmunizationAdministration DatesNext DuePfizer Monovalent (12+ yrs) SARS-COV-2 (COVID-19) vaccine, mRNA, spike protein, LNP, pres. free, 30mcg/0.3mL dose (DQM=188)07/29/2020,07/01/2020Tdap (NIR=808)07/22/2013Zoster Recombinant (RZV,Shingles) (HDB=984)03/29/2021 Social History Tobacco UseTypesPacks/DayYears UsedDateSmoking Tobacco: Never AssessedSex and Gender InformationValueDate RecordedSex Assigned at BirthNot on fileLegal Sex Male02/19/2021 10:01 PM ESTGender IdentityNot on fileSexual OrientationNot on file Last Filed Vital Signs Vital SignReadingTime TakenCommentsBlood Rmikdwtr394/8102/20/2021 5:30 AM EST Mrdcl55142/08/2021 6:58 AM VGCUdwlgxnfrkt95.3 ??C (99.1 ??F)02/19/2021 10:13 PM ESTRespiratory Auvy972704/22/2020 6:58 AM ESTOxygen Dgatdnvvjh66%02/20/2021 6:58 AM ESTInhaled Oxygen Concentration--Weight--Height--Body Mass Index-- Plan of Treatment Health MaintenanceDue DateLast DvamAdytekbpVxxxydvqhua09/25/1961Hepatitis C Lxkhuhfd47/25/1979Hepatitis A (HAV) Vaccine (optional start 19+ years)10/08/1979 Vzjjfbrnjmn33/25/1996CRC Fuxbseobt13/25/2006Cologuard (Stool DNA)2005FIT 2005Pneumococcal Vaccine(s) (50+ yrs) (1 of 1 - PCV)2010Hepatitis B (HBV) Vaccine (optional start 60+ years)2020hingles (RZV) Vaccine (2 of 2)/Tetanus (Td or Tdap) Ydsclfm16/12/2013COVID-19 Vaccine ( - 2024- season)512/, 07/29/2020, 07/01/2020 Influenza Vaccine (#1)2024RSV vaccine (adult) (1 - 1-dose 75+ series) 10/08/2035Tdap OvrurcxHmdogwhwa87/09/2014HIV HcsvAjonaethr11/07/2021 Procedures Procedure NamePriorityDate/TimeAssociated DiagnosisCommentsHIV1 HIV2 AGAB SCRN STAT104/21/2020 10:30 PM EST from Last 3 Months or Most Recently Relevant to Health Maintenance Results * HIV1 HIV2 AGAB SCRN (02/19/2021 10:30 PM EST)ComponentValueRef RangeTest MethodAnalysis TimePerformed AtPathologist SignatureHIV Ag-Ab Screen Ius-VeymjkiiLsi-Stvqkjee51/08/2021 12:01 AM ESTS [facility] Comment:No laboratory evidence for HIV Infection. Negative result does not rule out acute HIV infection. Ifacute HIV infection is suspected, recommend ordering an HIV-1 RNA quanitification test.Specimen (Source)Anatomical Location / LateralityCollection Method / VolumeCollection TimeReceived Time BloodBLOOD SPECIMEN / Djdncbh7102/19/2021 10:30 PM EST02/19/2021 10:45 PM EST Narrative [facility] - 02/20/2021 12:01 AM EST HIV Information: ??[place] Rev. code 3701.243(E): This information has been disclosed to you from confidential records protected from disclosure by state law. ??You shall make no further disclosure of this information without the specific, written, and informed release of the individual to whom it pertains, or as otherwise permitted by state law. ??A general authorization for the release of medical or other information is not sufficient for the purpose of the release of HIV test results or diagnoses. Authorizing ProviderResult TypeResult StatusAurelia Kristopher LYNN HIV/HEP/SYPH TESTINGFinal ResultPerforming OrganizationAddressCity/State/ZIP CodePhone Number [facility] [address] [place] [phone] from Last 3 Months or Most Recently Relevant to Health Maintenance [place] [address] [id number]
--- OUTSIDE RECORDS SUMMARY | 2025-02-10 16:29 | XMS_ITS | Clinical Summary ---
Author Organization [facility] Address [address] [place] [address] Care Team Providers Care Kraft Digester Operator Name Role Phone Unavailable Primary Care Provider Unavailabl e Social History Tobacco UseTypesPacks/DayYears UsedDateSmoking Tobacco: Never AssessedSex and Gender InformationValueDate RecordedSex Assigned at BirthNot on fileLegal Sex Male06/27/2022 6:50 PM EDTGender IdentityNot on fileSexual OrientationNot on file Plan of Treatment Not on file Insurance * Guarantor: Sidney Rincon TypeRelation to PatientDate of BirthPhone Billing AddressPersonal/KkcxuiDpvj65/25/1961 [facility] [facility] [place] [address]
== END 2025-02-10 16:25 | disposition home or self-care (01) ==
LOC: FHNEUROLOG 16:25
PROVIDERS: PCP Internal Medicine; Visit Provider Psychiatry & Neurology Neurology
DX: G47.33 Obstructive sleep apnea (adult) (pediatric) (principal)
CPT/HCPCS: G0463